=== PATIENT | female | born 1970 | race Caucasian/White ===

== ENCOUNTER 2017-02-28 02:48 | Observation (INO) ==
--- NOTE | 2017-02-28 03:08 | Emergency Department Note ---
START Narrative - START START: I examined this patient and my medical decision-making was reviewed with the emergency medicine resident. I agree with the documented findings, disposition and treatment plan as described except to the extent set forth below. Patient seen with emergency medicine resident Dr. Dale Turenr, Please see a copy of his note for details of the H&P, ED evaluation, management and disposition. I have independently evaluated the patient and confirmed appropriate portions of the history and physical exam. Briefly: A 46-year-old female in from sleep with right-sided chest pain accelerated premature coronary artery disease in her first-degree relatives. HEART score is 4. This is both wrists, patient will get chest x-ray aspirin nitroglycerin troponin screening labs and likely admission. Disposition pending
--- NOTE | 2017-02-28 03:14 | Emergency Department Note ---
Disposition Clinical Impression: Hypokalemia Chest pain Qualifiers: Chest pain type: unspecified Qualified Code(s): R07.9 - Chest pain, unspecified Disposition: Admitted As Inpatient Condition: Undetermined Referrals: Constantino Park DO [Primary Care Provider] - Forms: ED Satisfaction Letter Time of Disposition: 03:59 Chest Pain HPI - General Chief Complaint: ED Chest Pain Stated Complaint: chest pain Time Seen by Provider: 02/28/17 02:53 Source: patient Mode of arrival: ambulatory Limitations: no limitations Vital Signs Reviewed: Yes Nursing Notes Reviewed: Yes - History of Present Illness HPI Narrative: 46-year-old female with history of hypertension, arrives [facility] emergency department complaining of right-sided chest pain that woke her up from sleep just prior to arrival. The patient states it was bilaterally and is now primarily in the right side of her chest. The patient appears very uncomfortable when the room. She is hypertensive at this time. She denies any previous cardiac history or workup, denies hyperlipidemia or diabetes. She is a nonsmoker but has a family history of ID. The patient denies any history of DVT or PE, unilateral leg swelling, recent immobilizations, recent surgeries, history of cancer. The patient denies any previous history of stress test or cardiac catheter. She denies any other time. 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 Onset: during rest Pain Location: substernal, right chest Severity: moderate, severe Severity scale (1-10): 8 Quality: tightness, heaviness Pain Radiation: RUE Improves with: nothing Worsens with: nothing Treatments prior to arrival chest pain: aspirin (324 mg) - Related Data On Oral Contraceptives: No Home Medications Medication Instructions Recorded Confirmed ALPRAZolam [Xanax 0.25 MG Tablet] 0.25 mg PO BID PRN 11/15/15 11/15/15 BuPROPion SR (12 HR) [Wellbutrin 150 mg PO DAILY 11/15/15 11/15/15 SR] Escitalopram [Lexapro] 30 mg PO DAILY 11/15/15 11/15/15 HydrOXYzine Pamoate [Vistaril] 50 mg PO HS 11/15/15 11/15/15 Mirtazapine [Remeron] 45 mg PO HS 11/15/15 11/15/15 Naproxen [Naprosyn] 500 mg PO BID 11/15/15 11/15/15 Omeprazole [PriLOSEC] 40 mg PO DAILY 11/15/15 11/15/15 SUMAtriptan Succinate [Imitrex] 100 mg PO BID PRN 11/15/15 11/15/15 Previous Rx's Medication Instructions Recorded Acetaminophen w/Cod 300-30 mg 1 each PO Q6HR PRN #10 tablet 06/12/16 [Tylenol w/Codeine #3] Ibuprofen [Motrin] 800 mg PO Q8HR PRN #20 tablet 06/12/16 Allergies Allergy/AdvReac Type Severity Reaction Status Date / Time promethazine [From Phenergan] Allergy Agitated Verified 11/25/14 10:36 All systems ED: reviewed and negative except as stated. Constitutional: Denies: fever, chills, weakness Cardiovascular: Reports: chest pain, dyspnea on exertion. Denies: edema, syncope Respiratory: Reports: dyspnea. 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 - Social History Smoking Status: Never smoker Alcohol use: Reports: none Drug use: Reports: none Physical Exam - General Limitations: no limitations General appearance: alert, in no apparent distress - Head Head exam: atraumatic, normocephalic, normal inspection - Eye Eye exam: Present: normal appearance, PERRL, EOMI - ENT ENT exam: normal exam, normal oropharynx, mucous membranes moist - Neck Neck exam: Present: normal inspection, full ROM, trachea midline - Chest Chest inspection: Present: normal inspection, symmetric chest wall rise - Respiratory Respiratory exam: Present: normal lung sounds bilaterally - Cardiovascular Cardiovascular exam: Present: regular rate, normal rhythm, normal heart sounds - Abdominal Exam Abdominal exam: Present: soft, Non-Tender. Absent: tenderness, distention, guarding, rebound, rigidity - Extremities Exam Extremities exam: Present: normal inspection, full ROM. Absent: tenderness, pedal edema - Neurological Exam Neurological exam: Present: alert, oriented X3 Course - Reevaluation(s) Reevaluation #1: Patient's chest pain went from an 8 to a 4 after one nitroglycerin. Time: 03:27 Vital Signs Temperature 97.5 F L 02/28/17 02:48 Pulse Rate 99 02/28/17 02:48 Respiratory Rate 24 02/28/17 02:48 Blood Pressure 181/102 02/28/17 02:48 O2 Sat by Pulse Oximetry 97 02/28/17 02:48 Temperature 97.5 F L 02/28/17 02:48 Pulse Rate 84 02/28/17 03:36 Respiratory Rate 16 02/28/17 03:36 Blood Pressure 147/86 02/28/17 03:36 O2 Sat by Pulse Oximetry 96 02/28/17 03:36 Oxygen Delivery Oxygen Delivery Room Air Chest Pain - MDM Narrative Medical decision making narrative: Patient's workup here in the emergency department temperature to acute process. I am very concerned about the patient's chest pain is I am concerned about unstable angina. The patient's troponin is negative at this time. The patient' s chest pain started at roughly 45 minutes prior to arrival so I feel as though the troponin will not return positive. We will admit the patient for further workup at this time. The patient had complete resolution of the chest pain with 2 nitroglycerin. I am concerned about this patient. She did receive 324 aspirin prior to arrival to the emergency Department. Given the patient's symptoms and findings, we will admit the patient to hospitals for ACS rule out. Accepted by Dr. Real. - Lab Data Lab results reviewed: Yes I reviewed the patient's lab results. Result diagrams: 02/28/17 03:20 02/28/17 03:20 Lab Results 02/28/17 02/28/17 02/28/17 Range/Units 03:20 03:20 03:20 WBC 6.9 (4.3-11.1) K/mcL RBC 4.95 (3.82-4.97) M/mcL Hgb 10.5 L (11.5-15.4) g/dL Hct 35.3 (35.3-44.9) % MCV 71.3 L (83.0-100.0) fL MCH 21.2 L (28.0-33.3) pg MCHC 29.7 L (31.6-35.5) g/dL RDW 21.4 H (11.5-14.5) % Plt Count 307 (140-400) K/mcL MPV 9.6 (9.4-12.4) fL Immature Gran % 0.3 (0-4) % Seg Neutrophils % 60.8 % Lymphocytes % 28.1 % Monocytes % 8.0 % Eosinophils % 2.5 % Basophils % 0.3 % Neutrophils # 4.2 (1.6-8.9) K/mcL Lymphocytes # 1.9 (0.6-4.6) K/mcL Monocytes # 0.6 (0.0-1.3) K/mcL Eosinophils # 0.2 (0.0-0.6) K/mcL Basophils # 0.0 (0.0-0.2) K/mcL Sodium 141 (136-145) mEq/L Potassium 3.1 L (3.5-4.5) mEq/L Chloride 107 (98-109) mEq/L Carbon Dioxide 27 (19-29) mEq/L BUN 11 (7-20) mg/dL Creatinine 0.78 (0.57-1.11) mg/dL Est GFR ( Amer) > 60 (> 60) Est GFR (Non-Af Amer) > 60 (> 60) BUN/Creatinine Ratio 14 (6-26) Glucose 109 H (70-99) mg/dL Calculated Osmolality 292 (280-300) Calcium 8.8 (8.6-10.8) mg/dL Troponin I 0.00 (0-0.03) ng/mL - Radiology Data Radiology results reviewed: Yes I reviewed the patient's radiology results. - EKG Data EKG attestation: Yes I reviewed and interpreted this EKG. EKG results narrative: Heart rate 86 bpm. WY interval 148 ms. QTC 420 ms. Normal axis. No ST elevation but mild ST depression noted in lateral leads, V4, V5, V6 which is new from EKG performed on 11/25/2014. No other acute changes noted.
[2017-02-28] MEDS: Nitroglycerin 0.4 MG TAB.SUBL SL PRN ×2 (03:18→03:28)
[2017-02-28 03:23] LABS: Basophils % 0.3 %; Eosinophils # 0.2 K/mcL (0.0-0.6); Eosinophils % 2.5 %; Hematocrit 35.3 % (35.3-44.9); Hemoglobin 10.5 g/dL (11.5-15.4); Immature Granulocytes % 0.3 % (0-4); Lymphocytes # 1.9 K/mcL (0.6-4.6); Lymphocytes % 28.1 %; Mean Corpuscular HGB Conc 29.7 g/dL (31.6-35.5); Mean Corpuscular Hemoglobin 21.2 pg (28.0-33.3); Mean Corpuscular Volume 71.3 fL (83.0-100.0); Mean Platelet Volume 9.6 fL (9.4-12.4); Monocytes # 0.6 K/mcL (0.0-1.3); Neutrophils # 4.2 K/mcL (1.6-8.9); Platelet Count 307 K/mcL (140-400); Red Blood Count 4.95 M/mcL (3.82-4.97); Red Cell Distribution Width 21.4 % (11.5-14.5); Segmented Neutrophils % 60.8 %
[2017-02-28 03:36] LABS: BUN/Creatinine Ratio 14 (6-26); Blood Urea Nitrogen 11 mg/dL (7-20); Calcium 8.8 mg/dL (8.6-10.8); Carbon Dioxide 27 mEq/L (19-29); Chloride 107 mEq/L (98-109); Glucose 109 mg/dL (70-99); Osmolality,Calculated 292 (280-300); Potassium 3.1 mEq/L (3.5-4.5); Sodium 141 mEq/L (136-145); eGFR For African Americans > 60 (> 60); eGFR For Non-African Americans > 60 (> 60)
[2017-02-28] MEDS ORDERED: Naloxone 0.4 MG/ML INJ IVP PRN (07:13)
[2017-02-28] MEDS ORDERED: ALPRAZolam 0.5 MG TABLET PO PRN (08:23)
--- NOTE | 2017-02-28 08:28 | Internal Med History&Physical ---
Date of Encounter: 02/28/17 Time of Encounter: 08:30 Assessment and Plan (1) Chest pain Current visit: Yes Status: Acute Atypical, but did resolve with nitroglycerin. Heart score of 3 - Nuc med stress test pending, if negative will discharge home - Troponin undetectable x2 - Continue ASA - Keep patient chest pain free with SL nitro PRN Qualifiers: Chest pain type: other chest pain Qualified Code(s): R07.89 - Other chest pain; R07.8 - Other chest pain (2) Hypokalemia Current visit: Yes Status: Acute Received KCl in ED. Mag checked and is 2.0. - Recheck K in AM Internal Medicine - H&P: HPI Chief complaint: Chest pain Admitted From: Emergency Dept Plans for Post Hospital Care: Home History of present illness: Ms. Salvador is a 46 year old female with history of obesity and HTN who presented to the ED with complaints of chest pain this morning. She states that she has had bronchitis the past two weeks associated with frequent coughing, but this morning was awoke from sleep around 0200 with sharp substernal chest pain which radiated initially to both arms and then persisted at the right anterior chest. The pain was 8/10 and she could not identify any exacerbating or relieving factors. She was not coughing when the pain started, and coughing did not make the pain worse. On arrival to the ED she continued to have pain and was given 2 SL nitro, which completely relieved the pain and it has not returned. She took three 81mg ASA at home prior to driving to the ED. She denies history of cardiac disease. She has never had chest pain like this in the past. She admits to severe stressors at home. Her notes that she is not a complainer and has a high pain tolerance. Past Med Surg Social Fam HX - Past Medical History Medical history: arthritis, GERD, hypertension Psychiatric history: anxiety, depression - Past Surgical History Surgical History: , cholecystectomy, other - Social History Smoking Status: Never smoker Smokeless Tobacco Status: No Alcohol use: none Drug use: none - Family History Mother Living Status: Still Living Hx Family Respiratory Disorders: Yes (COPD) Father Living Status: Still Living Hx Family Cardiac Disorders: Yes Internal Medicine - H&P: Meds Escitalopram [Lexapro] 30 mg PO DAILY 08/03/16 [History] Mirtazapine [Remeron] 45 mg PO HS 11/15/15 [History] SUMAtriptan Succinate [Imitrex] 100 mg PO BID PRN 11/15/15 [History] ALPRAZolam [Xanax 0.5 MG Tablet] 0.5 mg PO BID PRN 02/28/17 [History] Zolpidem [Ambien] 10 mg PO HS 02/28/17 [History] 3 Allergy/AdvReac Type Severity Reaction Status Date / Time promethazine [From Phenergan] AdvReac Agitated Verified 02/28/17 07:50 All Systems PM: A 10-system review of systems was performed and is negative for pertinent findings except as documented above in the HPI. - Constitutional Vitals: Temp Pulse Resp BP Pulse Ox 98 F 65 16 156/86 97 02/28/17 07:12 02/28/17 07:12 02/28/17 07:12 02/28/17 07:12 02/28/17 07:12 General appearance: Present: A&O X 3 - Head Head exam: Present: atraumatic - Eye Eye exam: Present: EOMI, sclera anicteric - ENT ENT exam: Present: mucous membranes moist. Absent: mucous membranes dry - Neck Neck exam general surgery: Present: supple - Respiratory Respiratory exam: Present: CTAB - Cardiovascular Cardiovascular exam: Present: RRR. Absent: diastolic murmur, gallop, rubs, systolic murmur - GI/Abdominal GI/Abdominal exam: Present: normal bowel sounds, soft. Absent: distended, tenderness - Extremities Exam Extremities exam: Absent: pedal edema - Neurological Exam Neurological exam: Present: no focal deficits - Skin Skin exam: Absent: rash Internal Med - H&P Results - Labs CBC & Chem 7: 02/28/17 03:20 02/28/17 03:20
[2017-02-28 08:31] LABS: Chol/HDL Ratio 4.7 (0-4.9)
[2017-02-28] MEDS: SUMAtriptan succinate 50 MG TABLET PO PRN (08:53)
[2017-02-28] MEDS ORDERED: Regadenoson 0.4 MG/5 ML SYRINGE IVP ONE (10:44)
--- NOTE | 2017-02-28 18:28 | Electrocardiograph Report ---
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
[2017-02-28] MEDS ORDERED: Mirtazapine 15 MG TABLET PO SCH (21:00)
[2017-03-01 09:50] LABS: Basophils % 0.2 %; Eosinophils # 0.1 K/mcL (0.0-0.6); Eosinophils % 2.2 %; Hematocrit 35.2 % (35.3-44.9); Hemoglobin 10.4 g/dL (11.5-15.4); Immature Granulocytes % 0.4 % (0-4); Lymphocytes # 1.1 K/mcL (0.6-4.6); Lymphocytes % 20.7 %; Mean Corpuscular HGB Conc 29.5 g/dL (31.6-35.5); Mean Corpuscular Volume 71.1 fL (83.0-100.0); Mean Platelet Volume 9.3 fL (9.4-12.4); Monocytes # 0.3 K/mcL (0.0-1.3); Monocytes % 6.2 %; Neutrophils # 3.8 K/mcL (1.6-8.9); Platelet Count 285 K/mcL (140-400); Red Blood Count 4.95 M/mcL (3.82-4.97); Red Cell Distribution Width 21.2 % (11.5-14.5); Segmented Neutrophils % 70.3 %
[2017-03-01] MEDS: SUMAtriptan succinate 50 MG TABLET PO PRN (09:59)
[2017-03-01 10:00] LABS: BUN/Creatinine Ratio 13 (6-26); Blood Urea Nitrogen 10 mg/dL (7-20); Calcium 8.6 mg/dL (8.6-10.8); Carbon Dioxide 27 mEq/L (19-29); Chloride 108 mEq/L (98-109); Glucose 113 mg/dL (70-99); Osmolality,Calculated 294 (280-300); Phosphorous 2.9 mg/dL (2.3-4.7); Potassium 2.9 mEq/L (3.5-4.5); Sodium 142 mEq/L (136-145); eGFR For African Americans > 60 (> 60); eGFR For Non-African Americans > 60 (> 60)
--- NOTE | 2017-03-01 13:34 | Discharge Summary ---
Date of Encounter: 03/01/17 Time of Encounter: 09:45 - Discharge Diagnosis (1) Chest pain Priority: Primary Status: Resolved Qualifiers: Chest pain type: other chest pain Qualified Code(s): R07.89 - Other chest pain; R07.8 - Other chest pain (2) Hypokalemia Priority: Secondary Status: Acute (3) Morbid obesity with BMI of 40.0-44.9, adult Priority: Secondary Status: Chronic - Discharge Medications Prescriptions: Aspirin Enteric Coated [Aspirin EC] 81 mg PO DAILY #30 tablet. Home Medications: Escitalopram [Lexapro] 30 mg PO DAILY 11/15/15 [History] Mirtazapine [Remeron] 45 mg PO HS 11/15/15 [History] SUMAtriptan Succinate [Imitrex] 100 mg PO BID PRN 11/15/15 [History] ALPRAZolam [Xanax 0.5 MG Tablet] 0.5 mg PO BID PRN 02/28/17 [History] Zolpidem [Ambien] 10 mg PO HS 02/28/17 [History] Aspirin Enteric Coated [Aspirin EC] 81 mg PO DAILY #30 tablet. 03/01/17 [Rx] Allergies/Adverse Reactions: 3 Allergy/AdvReac Type Severity Reaction Status Date / Time promethazine [From Phenergan] AdvReac Agitated Verified 02/28/17 07:50 Procedures/tests Complete & Pending: Procedures Performed prior 72 hours Category Date Time Status NM puvri perf SPECT multi [NM] Routine Exams 02/28/17 08:22 Taken ECG 12 lead ECG [ECG] Routine Y 02/28/17 10:02 Ordered SP pharm nuclear stress Routine Y 02/28/17 08:22 Completed Date of admission: 02/28/17 04:41 Primary care physician: Rafita Mancera Discharging clinician: Stephanie Nielson Anticipated date of discharge: 03/01/17 - Patient Status Disposition: Home, Self-Care Condition: Good Functional capacity at discharge: independent ambulation Overall status at discharge: patient is back to baseline - Discharge Instructions Follow Up With: Constantino Park DO [Primary Care Provider] - (Appointment has been webrequested. Our offices will call you with an appointment time and date.) Additional Instructions: Please follow up with your primary care physician within five days after your discharge from the hospital. Please closely monitor your blood pressure at home and keep a daily log of your blood pressure readings. You were noted to have elevated BP during the course of this hospitalization due to which Hydrochlorothiazide 12.5mg once a day has been added to your home medications. Please take this medication as prescribed. Hold this medication if your systolic blood pressure is less than 100. Aspirin 81mg once a day has been added to your home medications Resume all other medications as prescribed by your primary care physician. - Diet and Activity Activity: resume usual activities as tolerated Diet: low fat, low cholesterol, low salt diet Hospital course: Ms. Salvador is a 46 year old female with PMH of hypertension, morbid obesity who presented to the ER for chest pain. She underwent nuclear stress test which was negative for any ischemic perfusion defect. Her serial TNI remained negative. At this time she is hemodynamically stable and reports of complete resolution of her chest pain. She will be discharged to home with follow up with her pcp. Pt demonstrates understanding of her diagnosis and agree with the discharge care and plan. - Time Spent with Patient Total time spent providing and/or coordinating discharge services: Less than 30 minutes - Constitutional Vitals: Temp Pulse Resp BP Pulse Ox 97.9 F 67 15 165/96 95 03/01/17 11:42 03/01/17 11:42 03/01/17 11:42 03/01/17 11:42 03/01/17 11:42 General appearance: Present: A&O X 3, morbidly obese, no acute distress - Head Head exam: Present: atraumatic, normocephalic - Eye Eye exam: Present: conjuntiva pink, sclera anicteric - Respiratory Respiratory exam: Present: CTAB. Absent: accessory muscle use, rales, rhonchi, wheezes - Cardiovascular Cardiovascular exam: Present: RRR, +S1, +S2. Absent: diastolic murmur, gallop, rubs, systolic murmur - GI/Abdominal GI/Abdominal exam: Present: normal bowel sounds, soft, no peritoneal signs. Absent: distended, tenderness - Extremities Exam Extremities exam: Present: warm, radial pulses palpable and symmetrical. Absent : calf tenderness - Neurological Exam Neurological exam: Present: alert, oriented X3
[2017-03-01] MEDS ORDERED: hydroCHLOROthiazide 25 MG TABLET PO SCH (13:45)
[2017-03-01 16:19] VITALS: BP 155/68
== END 2017-03-01 17:15 | disposition home or self-care (01) ==
LOC: 3BNU 02:48 → EMEROO 02:48 → SUATTDRO 04:41 → 3BNU 05:04
PROVIDERS: ADMIT Internal Medicine; ATTEND Internal Medicine

== ENCOUNTER 2017-11-25 13:08 | Observation (INO) ==
[2017-11-25] MEDS ORDERED: Aspirin 81 MG TAB.CHEW PO ONE (13:28)
[2017-11-25] MEDS ORDERED: 0.9 % Sodium Chloride 1,000 ML IVC ONE (13:30)
--- NOTE | 2017-11-25 13:36 | Emergency Department Note ---
Disposition Clinical Impression: Hypokalemia Chest pain Qualifiers: Chest pain type: unspecified Qualified Code(s): R07.9 - Chest pain, unspecified Disposition: Admitted As Inpatient Condition: Good Forms: ED Satisfaction Letter General Adult HPI - General Chief complaint: ED Chest Pain Stated complaint: chest pain Time Seen by Provider: 11/25/17 13:11 Source: patient, EMS Limitations: no limitations Nursing Notes Reviewed: Yes Vital Signs Reviewed: Yes - History of Present Illness HPI Narrative: Patient presenting to the emergency department complaining of chest pain. She came in by EMS. States that she was moving boxes today inside and outside at the [employer] when she started having left-sided chest pain that radiated to her shoulder. She reports that she has had this pain previously approximately 6 months ago however she had a negative workup, but was found to be hypokalemic. She was admitted to the hospital at that time. She reports taking potassium supplements " occasionally" now. Patient states that the pain was a significant whenever started however since she has been resting it has decreased. Did have associated shortness of breath as well as diaphoresis. Also reporting a cough for the past 2 weeks. No fevers the cough is nonproductive. She does have a history of hypertension is unknown if she has high cholesterol she has never had this checked before. She was a previous smoker. Does have a cardiac history in her family. She also reports a history of possible blood clot in her lung. She states that she was treated for this as well as a pneumonia at the same time and they were unsure as what she had. Onset was approximately an hour ago. Does radiate to the shoulder. Associated symptoms are short of breath diaphoresis and nausea. States that the nausea has subsided at this time. She is still mildly short of breath she reports. Pain Scale: 4 - Related Data Home Medications Medication Instructions Recorded Confirmed Mirtazapine [Remeron] 45 mg PO HS 11/15/15 02/28/17 ALPRAZolam [Xanax 0.5 MG Tablet] 0.5 mg PO BID PRN 02/28/17 02/28/17 Zolpidem [Ambien] 10 mg PO HS 02/28/17 02/28/17 Previous Rx's Medication Instructions Recorded Aspirin Enteric Coated [Aspirin EC] 81 mg PO DAILY #30 tablet. 03/01/17 Potassium Chloride 40 meq PO DAILY 4 Days #8 04/13/18 tab.er.prt Allergies Allergy/AdvReac Type Severity Reaction Status Date / Time promethazine [From Phenergan] AdvReac Agitated Verified 07/25/17 09:17 All systems ED: reviewed and negative except as stated. Constitutional: Denies: fever, chills Cardiovascular: Reports: chest pain. Denies: palpitations, dyspnea on exertion , syncope Respiratory: Reports: cough (2 weeks.), dyspnea (Associated with the chest pain) . Denies: wheezes, sputum production Gastrointestinal: Reports: nausea (Associated with the chest pain). Denies: abdominal pain, vomiting, diarrhea Genitourinary: Denies: urgency, dysuria, frequency, hematuria Musculoskeletal: Denies: back pain, neck pain Integumentary: Denies: rash Neurological: Denies: headache, weakness Past Medical History - Past Medical History Attestation: Yes The following information was validated with the patient. 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 Absent : tenderness - Respiratory Respiratory exam: Present: normal lung sounds bilaterally. Absent: respiratory distress, accessory muscle use - Cardiovascular Cardiovascular exam: Present: regular rate, normal rhythm, normal heart sounds - Abdominal Exam Abdominal exam: Present: soft, Non-Tender. Absent: tenderness, distention, guarding, rebound, rigidity, organomegaly - Extremities Exam Extremities exam: Present: normal inspection, full ROM, normal capillary refill. Absent: tenderness, pedal edema - Back Exam Back exam: Present: normal inspection, full ROM. Absent: tenderness - Neurological Exam Neurological exam: Present: alert, oriented X3 - Psychiatric Psychiatric exam: Present: normal affect, normal mood - Skin Skin exam: Present: warm, dry, intact, normal color. Absent: rash, cyanosis Course Course Narrative: Patient is resting comfortably in bed. Does not appear to be any distress. Lung sounds are clear heart tones are normal abdomen is soft nontender. She has no edema to her 70s. No calf swelling or tenderness to palpation. Patient is not tachycardic. EKG shows no signs of acute ischemia. We will get a cardiac workup inclusive of the d-dimer and reassess. She states she did not take any of her aspirin today. We will provide her with a liter of fluid as she has been outside and sweating most of the day and aspirin at this time. She states she does not need pain medication. She also states that her nausea has almost completely subsided. - Reevaluation(s) Reevaluation #1: Patient is potassium is low. She does take supplements however it is still 2.5. We will admit to the hospital for cardiac rule out and hypokalemia. Time: 14:43 - Consultations Consultation #1: Dr Cool accepted Pt in stable condition Time: 14:51 Vital Signs Temperature 98.2 F 11/25/17 13:10 Pulse Rate 88 11/25/17 13:10 Respiratory Rate 14 11/25/17 13:10 Blood Pressure 123/76 11/25/17 13:10 O2 Sat by Pulse Oximetry 94 11/25/17 13:10 Temperature 98.2 F 11/25/17 13:10 Pulse Rate 84 11/25/17 14:32 Respiratory Rate 16 11/25/17 14:32 Blood Pressure 121/71 11/25/17 14:32 O2 Sat by Pulse Oximetry 100 11/25/17 14:32 Oxygen Delivery Oxygen Delivery Room Air Medical Decision Making - Medical Records Medical records reviewed: Yes I reviewed the patient's medical records. - Lab Data Lab results reviewed: Yes I reviewed the patient's lab results. Result diagrams: 11/25/17 13:41 11/25/17 13:41 Lab Results 11/25/17 11/25/17 11/25/17 Range/Units 13:41 13:41 13:41 WBC 8.7 (4.3-11.1) K/mcL RBC 5.06 H (3.82-4.97) M/mcL Hgb 11.7 (11.5-15.4) g/dL Hct 37.5 (35.3-44.9) % MCV 74.1 L (83.0-100.0) fL MCH 23.1 L (28.0-33.3) pg MCHC 31.2 L (31.6-35.5) g/dL RDW 18.8 H (11.5-14.5) % Plt Count 312 (140-400) K/mcL MPV 9.6 (9.4-12.4) fL Immature Gran % 0.7 (0-4) % Seg Neutrophils % 77.8 % Lymphocytes % 14.1 % Monocytes % 5.6 % Eosinophils % 1.5 % Basophils % 0.3 % Neutrophils # 6.8 (1.6-8.9) K/mcL Lymphocytes # 1.2 (0.6-4.6) K/mcL Monocytes # 0.5 (0.0-1.3) K/mcL Eosinophils # 0.1 (0.0-0.6) K/mcL Basophils # 0.0 (0.0-0.2) K/mcL PT 11.8 (9.4-12.1) Seconds INR 1.0 APTT 25.6 L (26.0-36.0) Seconds D-Dimer 479 (0-500) ng/mLFEU Sodium (136-145) mEq/L Potassium (3.5-5.1) mEq/L Chloride (98-107) mEq/L Carbon Dioxide (23-29) mEq/L BUN (6-20) mg/dL Creatinine (0.60-1.20) mg/dL Est GFR ( Amer) (> 60) Est GFR (Non-Af Amer) (> 60) BUN/Creatinine Ratio (6-26) Glucose (70-105) mg/dL Calculated Osmolality (280-300) Calcium (8.6-10.3) mg/dL Troponin I (< 0.04) ng/mL B-Natriuretic Peptide 10 (Less than 100) pg/mL 11/25/17 Range/Units 13:41 WBC (4.3-11.1) K/mcL RBC (3.82-4.97) M/mcL Hgb (11.5-15.4) g/dL Hct (35.3-44.9) % MCV (83.0-100.0) fL MCH (28.0-33.3) pg MCHC (31.6-35.5) g/dL RDW (11.5-14.5) % Plt Count (140-400) K/mcL MPV (9.4-12.4) fL Immature Gran % (0-4) % Seg Neutrophils % % Lymphocytes % % Monocytes % % Eosinophils % % Basophils % % Neutrophils # (1.6-8.9) K/mcL Lymphocytes # (0.6-4.6) K/mcL Monocytes # (0.0-1.3) K/mcL Eosinophils # (0.0-0.6) K/mcL Basophils # (0.0-0.2) K/mcL PT (9.4-12.1) Seconds INR APTT (26.0-36.0) Seconds D-Dimer (0-500) ng/mLFEU Sodium 136 (136-145) mEq/L Potassium 2.5 L* (3.5-5.1) mEq/L Chloride 97 L (98-107) mEq/L Carbon Dioxide 28 (23-29) mEq/L BUN 15 (6-20) mg/dL Creatinine 0.85 (0.60-1.20) mg/dL Est GFR ( Amer) > 60 (> 60) Est GFR (Non-Af Amer) > 60 (> 60) BUN/Creatinine Ratio 18 (6-26) Glucose 141 H (70-105) mg/dL Calculated Osmolality 285 (280-300) Calcium 9.5 (8.6-10.3) mg/dL Troponin I < 0.03 (< 0.04) ng/mL B-Natriuretic Peptide (Less than 100) pg/mL - Radiology Data Radiology results reviewed: Yes I reviewed the patient's radiology results. - EKG Data EKG #1 EKG attestation: Yes I reviewed and interpreted this EKG. EKG results narrative: Normal sinus rhythm at a rate of 87. CA interval appears to be normal. No signs of acute ischemia. No previous EKG to. Heart Score - Score History: Moderately Suspicious EKG: Non Specific repolarisation Disturbance Age: 45-65 Risk Factors: 1-2 risk factors Troponin: Less than normal limit HEART Score Total: 4
[2017-11-25 13:55] LABS: Basophils % 0.3 %; Eosinophils # 0.1 K/mcL (0.0-0.6); Eosinophils % 1.5 %; Hematocrit 37.5 % (35.3-44.9); Hemoglobin 11.7 g/dL (11.5-15.4); Immature Granulocytes % 0.7 % (0-4); Lymphocytes # 1.2 K/mcL (0.6-4.6); Lymphocytes % 14.1 %; Mean Corpuscular HGB Conc 31.2 g/dL (31.6-35.5); Mean Corpuscular Hemoglobin 23.1 pg (28.0-33.3); Mean Corpuscular Volume 74.1 fL (83.0-100.0); Mean Platelet Volume 9.6 fL (9.4-12.4); Monocytes # 0.5 K/mcL (0.0-1.3); Monocytes % 5.6 %; Neutrophils # 6.8 K/mcL (1.6-8.9); Platelet Count 312 K/mcL (140-400); Red Blood Count 5.06 M/mcL (3.82-4.97); Red Cell Distribution Width 18.8 % (11.5-14.5); Segmented Neutrophils % 77.8 %
[2017-11-25 14:01] LABS: Prothrombin Time 11.8 Seconds (9.4-12.1)
[2017-11-25 14:04] LABS: Activated Partial Thrombo Time 25.6 Seconds (26.0-36.0)
[2017-11-25 14:11] LABS: Troponin I < 0.03 ng/mL (< 0.04)
[2017-11-25 14:20] LABS: BUN/Creatinine Ratio 18 (6-26); Blood Urea Nitrogen 15 mg/dL (6-20); Calcium 9.5 mg/dL (8.6-10.3); Carbon Dioxide 28 mEq/L (23-29); Chloride 97 mEq/L (98-107); Glucose 141 mg/dL (70-105); Osmolality,Calculated 285 (280-300); Potassium 2.5 mEq/L (3.5-5.1); Sodium 136 mEq/L (136-145); eGFR For Non-African Americans > 60 (> 60)
[2017-11-25] MEDS ORDERED: Potassium Chloride Elixir 20 MEQ/15 ML UDC PO ONE (14:37)
[2017-11-25] MEDS ORDERED: Ondansetron 4 MG/2 ML VIAL IVP ONE (14:47)
[2017-11-25 14:58] LABS: Magnesium 2.2 mg/dL (1.6-2.6)
[2017-11-25] MEDS ORDERED: Naloxone 0.4 MG/ML INJ IVP PRN (15:26)
[2017-11-25] MEDS ORDERED: ALPRAZolam 0.5 MG TABLET PO PRN (15:29)
--- NOTE | 2017-11-25 15:31 | Emergency Department Note ---
Disposition Clinical Impression: Hypokalemia Chest pain Qualifiers: Chest pain type: unspecified Qualified Code(s): R07.9 - Chest pain, unspecified Disposition: Admitted As Inpatient Condition: Good General Adult HPI - General Chief complaint: ED Chest Pain Stated complaint: chest pain Time Seen by Provider: 11/25/17 13:11 Source: patient, EMS Limitations: no limitations Nursing Notes Reviewed: Yes Vital Signs Reviewed: Yes - History of Present Illness Pain Scale: 4 - Related Data Home Medications Medication Instructions Recorded Confirmed ALPRAZolam [Xanax 0.5 MG Tablet] 0.5 mg PO BID PRN 02/28/17 11/25/17 Zolpidem [Ambien] 10 mg PO HS 02/28/17 11/25/17 Mirtazapine [Remeron] 45 mg PO HS 11/25/17 11/25/17 Olmesartan/Hydrochlorothiazide 1 tab PO DAILY 11/25/17 11/25/17 [Olmesartan-Hctz 20-12.5 mg Tab] Oxybutynin Chloride [Ditropan Xl] 10 mg PO DAILY 11/25/17 11/25/17 Sertraline [Zoloft] 200 mg PO DAILY 11/25/17 11/25/17 Previous Rx's Medication Instructions Recorded Aspirin Enteric Coated [Aspirin EC] 81 mg PO DAILY #30 tablet.dr 03/01/17 Potassium Chloride 40 meq PO DAILY 4 Days #8 07/25/17 tab.er.prt Allergies Allergy/AdvReac Type Severity Reaction Status Date / Time promethazine [From Phenergan] AdvReac Agitated Verified 11/25/17 14:53 Constitutional: Denies: fever, chills Cardiovascular: Reports: chest pain. Denies: palpitations, dyspnea on exertion , syncope Respiratory: Reports: cough (2 weeks.), dyspnea (Associated with the chest pain) . Denies: wheezes, sputum production Gastrointestinal: Reports: nausea (Associated with the chest pain). 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 - Social History Smoking Status: Former smoker Smokeless Tobacco Status: No Alcohol use: Reports: none Drug use: Reports: none Physical Exam - General Limitations: no limitations General appearance: alert, in no apparent distress Course Vital Signs Temperature 98.2 F 11/25/17 13:10 Pulse Rate 88 11/25/17 13:10 Respiratory Rate 14 11/25/17 13:10 Blood Pressure 123/76 11/25/17 13:10 O2 Sat by Pulse Oximetry 94 11/25/17 13:10 Temperature 98.2 F 11/25/17 13:10 Pulse Rate 84 11/25/17 14:32 Respiratory Rate 16 11/25/17 14:32 Blood Pressure 121/71 11/25/17 14:32 O2 Sat by Pulse Oximetry 100 11/25/17 14:32 Oxygen Delivery Oxygen Delivery Room Air Medical Decision Making - Lab Data Result diagrams: 11/25/17 13:41 11/25/17 13:41 Lab Results 11/25/17 11/25/17 11/25/17 Range/Units 13:41 13:41 13:41 WBC 8.7 (4.3-11.1) K/mcL RBC 5.06 H (3.82-4.97) M/mcL Hgb 11.7 (11.5-15.4) g/dL Hct 37.5 (35.3-44.9) % MCV 74.1 L (83.0-100.0) fL MCH 23.1 L (28.0-33.3) pg MCHC 31.2 L (31.6-35.5) g/dL RDW 18.8 H (11.5-14.5) % Plt Count 312 (140-400) K/mcL MPV 9.6 (9.4-12.4) fL Immature Gran % 0.7 (0-4) % Seg Neutrophils % 77.8 % Lymphocytes % 14.1 % Monocytes % 5.6 % Eosinophils % 1.5 % Basophils % 0.3 % Neutrophils # 6.8 (1.6-8.9) K/mcL Lymphocytes # 1.2 (0.6-4.6) K/mcL Monocytes # 0.5 (0.0-1.3) K/mcL Eosinophils # 0.1 (0.0-0.6) K/mcL Basophils # 0.0 (0.0-0.2) K/mcL PT 11.8 (9.4-12.1) Seconds INR 1.0 APTT 25.6 L (26.0-36.0) Seconds D-Dimer 479 (0-500) ng/mLFEU Sodium (136-145) mEq/L Potassium (3.5-5.1) mEq/L Chloride (98-107) mEq/L Carbon Dioxide (23-29) mEq/L BUN (6-20) mg/dL Creatinine (0.60-1.20) mg/dL Est GFR ( Amer) (> 60) Est GFR (Non-Af Amer) (> 60) BUN/Creatinine Ratio (6-26) Glucose (70-105) mg/dL Calculated Osmolality (280-300) Calcium (8.6-10.3) mg/dL Magnesium (1.6-2.6) mg/dL Troponin I (< 0.04) ng/mL B-Natriuretic Peptide 10 (Less than 100) pg/mL 11/25/17 Range/Units 13:41 WBC (4.3-11.1) K/mcL RBC (3.82-4.97) M/mcL Hgb (11.5-15.4) g/dL Hct (35.3-44.9) % MCV (83.0-100.0) fL MCH (28.0-33.3) pg MCHC (31.6-35.5) g/dL RDW (11.5-14.5) % Plt Count (140-400) K/mcL MPV (9.4-12.4) fL Immature Gran % (0-4) % Seg Neutrophils % % Lymphocytes % % Monocytes % % Eosinophils % % Basophils % % Neutrophils # (1.6-8.9) K/mcL Lymphocytes # (0.6-4.6) K/mcL Monocytes # (0.0-1.3) K/mcL Eosinophils # (0.0-0.6) K/mcL Basophils # (0.0-0.2) K/mcL PT (9.4-12.1) Seconds INR APTT (26.0-36.0) Seconds D-Dimer (0-500) ng/mLFEU Sodium 136 (136-145) mEq/L Potassium 2.5 L* (3.5-5.1) mEq/L Chloride 97 L (98-107) mEq/L Carbon Dioxide 28 (23-29) mEq/L BUN 15 (6-20) mg/dL Creatinine 0.85 (0.60-1.20) mg/dL Est GFR ( Amer) > 60 (> 60) Est GFR (Non-Af Amer) > 60 (> 60) BUN/Creatinine Ratio 18 (6-26) Glucose 141 H (70-105) mg/dL Calculated Osmolality 285 (280-300) Calcium 9.5 (8.6-10.3) mg/dL Magnesium 2.2 (1.6-2.6) mg/dL Troponin I < 0.03 (< 0.04) ng/mL B-Natriuretic Peptide (Less than 100) pg/mL Attestation Statement - Attestation Attestation: I, Salomón Garibay, examined this patient and my medical decision-making was reviewed with the W[employer] PLANT OPERATOR/PA/Advanced Practice Nurse/Resident Physician. I agree with the documented findings, disposition and treatment plan as described except to the extent set forth below. 47-year-old female presents emergency Department with concerns of acute onset chest pain. 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 Patient had associated diaphoresis and shortness of breath. Patient had a similar episode of similar pain which was diagnosed as possibly secondary to hypokalemia. Patient has described increased weakness and fatigue over the past few days. Patient has a history of hypokalemia and is supposed be taking potassium replacement however she has been intermittently taking the medication. Initial troponin negative. EKG showed mild diffuse ST depressions however this is unchanged from previous EKG. Patient felt comfortable with the plan to be admitted to the hospital for further care and evaluation. Potassium replaced in the emergency department.
--- NOTE | 2017-11-25 15:33 | Internal Med History&Physical ---
<Carol Houser - Last Filed: 11/25/17 15:31> Date of Encounter: 11/25/17 Time of Encounter: 15:31 Internal Medicine - H&P: HPI Chief complaint: Chest pain Admitted From: Home History of present illness: Ms. Salvador is a 47 year old female with PMH hypertension, insomnia, depression and morbid obesity presented to [facility] on 11/25/2017 with complaints of chest pain. She was placed in observation status for ACS rule out. Information obtained from chart review and patient report. 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 Chest pain now resolved. Nothing makes symptoms better or worse and therefore she came to the ER. She also reports associated diaphoresis and nausea. No shortness of breath. Past Med Surg Social Fam HX - Past Medical History Medical history: arthritis, GERD, hypertension, other Additional medical history: Bacterial pneumonia Psychiatric history: anxiety, depression - Past Surgical History Surgical History: , cholecystectomy, other Additional surgical history: jaw. 2 c-sections - Social History Smoking Status: Former smoker Smokeless Tobacco Status: No Alcohol use: none Drug use: none - Family History Mother Living Status: Still Living Hx Family Respiratory Disorders: Yes (COPD) Father Living Status: Still Living Hx Family Cardiac Disorders: Yes Internal Medicine - H&P: Meds ALPRAZolam [Xanax 0.5 MG Tablet] 0.5 mg PO BID PRN 02/28/17 [History] Zolpidem [Ambien] 10 mg PO HS 02/28/17 [History] Aspirin Enteric Coated [Aspirin EC] 81 mg PO DAILY #30 tablet. 03/01/17 [Rx] Potassium Chloride 40 meq PO DAILY 4 Days #8 tab.er.prt 07/25/17 [Rx] Mirtazapine [Remeron] 45 mg PO HS 11/25/17 [History] Olmesartan/Hydrochlorothiazide [Olmesartan-Hctz 20-12.5 mg Tab] 1 tab PO DAILY 11/25/17 [History] Oxybutynin Chloride [Ditropan Xl] 10 mg PO DAILY 11/25/17 [History] Sertraline [Zoloft] 200 mg PO DAILY 11/25/17 [History] 3 Allergy/AdvReac Type Severity Reaction Status Date / Time promethazine [From Phenergan] AdvReac Agitated Verified 11/25/17 14:53 All Systems PM: A 10-system review of systems was performed and is negative for pertinent findings except as documented above in the HPI. - Constitutional Constitutional: excessive sweating, no chills, no fever(s), no night sweats - EENT Eyes: no change in vision, no discharge, no pain, no photophobia Ears: no ear discharge, no ear pain, no tinnitus Nose, mouth and throat: no dysphagia, no nasal discharge, no neck pain, no sore throat - Cardiovascular Cardiovascular ROS IM: chest pain, diaphoresis, no dyspnea, no lightheadedness, no palpitations, no syncope - Respiratory Respiratory: cough, no dyspnea, no wheezing, no excessive phlegm production - Gastrointestinal Gastrointestinal: nausea, no abdominal pain, no diarrhea, no hematemesis, no hematochezia, no melena, no vomiting - Genitourinary Genitourinary: no change in urinary stream, no dysuria, no flank pain, no hematuria - Musculoskeletal Musculoskeletal ROS IM: no numbness, no tingling - Integumentary Integumentary IM: no rash, no unusual bruising - Neurological Neurological ROS: no confusion, no convulsions, no focal weakness, no numbness, no tingling, no tremor(s) - Hematologic/Lymphatic Hematologic/Lymphatic: no easy bruising - Constitutional Vitals: Temp Pulse Resp BP Pulse Ox 98.2 F 84 16 121/71 100 11/25/17 13:10 11/25/17 14:32 11/25/17 14:32 11/25/17 14:32 11/25/17 14:32 General appearance: Present: A&O X 3, morbidly obese, no acute distress - Head Head exam: Present: atraumatic, normocephalic - Eye Eye exam: Present: PERRL, conjuntiva pink, sclera anicteric Pupils: Present: PERRL - Neck Neck exam general surgery: Present: supple, trachea midline. Absent: lymphadenopathy - Respiratory Respiratory exam: Present: CTAB. Absent: accessory muscle use, rales, rhonchi, wheezes - Cardiovascular Cardiovascular exam: Present: RRR, +S1, +S2. Absent: diastolic murmur, gallop, rubs, systolic murmur - GI/Abdominal GI/Abdominal exam: Present: normal bowel sounds, soft, no peritoneal signs. Absent: distended, tenderness - Extremities Exam Extremities exam: Present: warm, radial pulses palpable and symmetrical. Absent : calf tenderness, cyanotic, pedal edema - Neurological Exam Neurological exam: Present: CN II-XII intact, oriented X3, no focal deficits. Absent: pronater drift, facial droop, speech deficit - Skin Skin exam: Present: dry, intact Internal Med - H&P Results - Labs CBC & Chem 7: 11/25/17 13:41 11/25/17 13:41 - Assessment and plan (1) Chest pain Current Visit: Yes Status: Acute Assessment and plan: presented with chest pain that occurred while doing heavy lifting with associated diaphoresis and nausea. No known CAD however cardiac risk factors include hypertension, family history morbid obesity. 02/2017 stress test negative for ischemia. Initial troponin negative, EKG without acute ST changes. CXR unremarkable. Wells score with low probability for pulmonary embolism; D-dimer normal effectively ruling out pulmonary embolism. Check echocardiogram, cycle troponin. Cardiology consulted Qualifiers: Chest pain type: unspecified Qualified Code(s): R07.9 - Chest pain, unspecified (2) Hypokalemia Current Visit: Yes Status: Acute Assessment and plan: appears to be chronic as patient is on potassium supplements. K2.5 on arrival. Replaced in ED. Monitor repeat potassium level. Replace PRN (3) HTN (hypertension) Current Visit: Yes Status: Acute Assessment and plan: per hx. BP controlled. Cont home BP medication. Monitor BP and titrate PRN Qualifiers: Hypertension type: essential hypertension Qualified Code(s): I10 - Essential (primary) hypertension (4) Depression Current Visit: Yes Status: Acute Assessment and plan: per hx. Cont home medications. Qualifiers: Depression Type: major depressive disorder Major depression recurrence: unspecified whether recurrent Active/Remission status: currently active Major depression episode severity: mild Qualified Code(s): F32.0 - Major depressive disorder, single episode, mild (5) Insomnia Current Visit: Yes Status: Acute Assessment and plan: per hx. Cont home ambien Qualifiers: Insomnia type: primary Qualified Code(s): F51.01 - Primary insomnia (6) Morbid obesity with BMI of 40.0-44.9, adult Current Visit: No Status: Chronic Assessment and plan: BMI 43, weight 125 kg. Lifestyle and dietary modifications encouraged (7) DVT prophylaxis Current Visit: Yes Status: Acute Assessment and plan: heparin - Time Spent With Patient Total time spent is greater than 50% in coordination of care (as documented) at patient's floor/unit and/or counseling patient: <Lexa Cool - Last Filed: 11/25/17 19:59> Date of Encounter: 11/25/17 Internal Medicine - H&P: HPI History of present illness: Ms. Salvador is a 47 year old female All Systems PM: A 10-system review of systems was performed and is negative for pertinent findings except as documented above in the HPI. - Constitutional Vitals: Temp Pulse Resp BP Pulse Ox 98.6 F 81 16 105/68 98 11/25/17 18:32 11/25/17 18:32 11/25/17 18:32 11/25/17 18:32 11/25/17 18:32 Internal Med - H&P Results - Labs CBC & Chem 7: 11/25/17 13:41 11/25/17 13:41 - Attending Attestation I have seen and examined this pt independently. I have discussed with ENGRAVER LETTERING Houser regarding the management plan. Agree with the documentation. - Assessment and plan (1) Hypokalemia Current Visit: Yes Status: Acute (2) Morbid obesity with BMI of 40.0-44.9, adult Current Visit: No Status: Chronic (3) Chest pain Current Visit: Yes Status: Acute Qualifiers: Chest pain type: unspecified Qualified Code(s): R07.9 - Chest pain, unspecified (4) HTN (hypertension) Current Visit: Yes Status: Acute Qualifiers: Hypertension type: essential hypertension Qualified Code(s): I10 - Essential (primary) hypertension (5) Depression Current Visit: Yes Status: Acute Qualifiers: Depression Type: major depressive disorder Major depression recurrence: unspecified whether recurrent Active/Remission status: currently active Major depression episode severity: mild Qualified Code(s): F32.0 - Major depressive disorder, single episode, mild (6) Insomnia Current Visit: Yes Status: Acute Qualifiers: Insomnia type: primary Qualified Code(s): F51.01 - Primary insomnia (7) DVT prophylaxis Current Visit: Yes Status: Acute - Time Spent With Patient Total time spent is greater than 50% in coordination of care (as documented) at patient's floor/unit and/or counseling patient:
[2017-11-25] MEDS: *HR* Heparin 5,000 UNIT/ML VIAL SQ SCH (20:23)
[2017-11-25] MEDS ORDERED: Mirtazapine 15 MG TABLET PO SCH (21:00)
[2017-11-25] MEDS ORDERED: Perflutren Lipid Microsphere 1.3 ML in 0.9 % Sodium Chloride 8.7 ML IVP ONE (21:06)
[2017-11-25] MEDS ORDERED: Ondansetron 4 MG/2 ML VIAL IVP PRN (21:55)
[2017-11-26 01:08] LABS: Basophils % 0.5 %; Eosinophils # 0.1 K/mcL (0.0-0.6); Eosinophils % 1.5 %; Hemoglobin 9.8 g/dL (11.5-15.4); Immature Granulocytes % 0.5 % (0-4); Lymphocytes # 1.7 K/mcL (0.6-4.6); Lymphocytes % 26.6 %; Mean Corpuscular HGB Conc 31.6 g/dL (31.6-35.5); Mean Corpuscular Volume 72.6 fL (83.0-100.0); Mean Platelet Volume 9.6 fL (9.4-12.4); Monocytes # 0.4 K/mcL (0.0-1.3); Monocytes % 6.5 %; Neutrophils # 4.2 K/mcL (1.6-8.9); Platelet Count 284 K/mcL (140-400); Red Blood Count 4.27 M/mcL (3.82-4.97); Red Cell Distribution Width 19.1 % (11.5-14.5); Segmented Neutrophils % 64.4 %
[2017-11-26 01:27] LABS: BUN/Creatinine Ratio 18 (6-26); Blood Urea Nitrogen 14 mg/dL (6-20); Calcium 8.6 mg/dL (8.6-10.3); Carbon Dioxide 29 mEq/L (23-29); Chloride 99 mEq/L (98-107); Chol/HDL Ratio 4.4 (0-4.9); Cholesterol 151 mg/dL (< 200); Glucose 138 mg/dL (70-105); HDL Cholesterol 34 mg/dL (40-59); LDL Cholesterol,Calculated 87 mg/dL (0-99); Osmolality,Calculated 285 (280-300); Potassium 2.8 mEq/L (3.5-5.1); Sodium 136 mEq/L (136-145); Triglycerides 150 mg/dL (< 150); eGFR For Non-African Americans > 60 (> 60)
[2017-11-26] MEDS: *HR* Heparin 5,000 UNIT/ML VIAL SQ SCH (05:30)
[2017-11-26] MEDS ORDERED: hydroCHLOROthiazide 25 MG TABLET PO SCH (09:00)
[2017-11-26] MEDS ORDERED: Losartan/HCTZ 50-12.5 TABLET PO SCH (09:00)
[2017-11-26] MEDS ORDERED: Aspirin Enteric Coated 81 MG Tablet PO SCH (09:00)
[2017-11-26] MEDS ORDERED: Potassium Chloride 40 MEQ, Lidocaine 1% 2 ML in D5% in Water 500 ML IVPB ONE (10:44)
--- NOTE | 2017-11-26 10:50 | Cardiology Consult Note ---
<Elisa Isaac - Last Filed: 11/26/17 11:22> Date of Encounter: 11/26/17 Time of Encounter: 10:20 Assessment and Plan (1) Chest pain Status: Resolved Atypical chest pain symptoms. ECG unchanged from previous. Troponin negative x3. Patient reports similar symptoms in the past with low potassium. K was 2.5 upon presentation. Recent negative nuclear stress test in 2016. TTE shows preserved LVEF with normal wall motion. Recommend replacement of Potassium, IVPB ordered. No further inpatient testing recommended at this time. Close follow-up with PCP. Anticipate sign-off once seen and evaluated by Dr. Alfaro. Qualifiers: Chest pain type: precordial pain Qualified Code(s): R07.2 - Precordial pain (2) Hypokalemia Status: Acute Chronic. Patient reports several missed doses of home potassium chloride over the past several days. Given K was severely low, recommend IV replacement, rider ordered. Discussion w patient/family: The assessment and plan as outlined above was discussed with the patient and/or family members who expressed understanding and agreement. All questions were answered. Thank you for involving us in the care of your patient. Please call with any questions. The patient will be discussed and reviewed with Dr. Alfaro; Recommend close outpatient follow-up with PCP. History of Present Illness Consult date: 11/26/17 Requesting physician: Lexa Cool Consult reason: Chest pain Chief complaint: Pre-syncope, chest discomfort History of present illness: Ms. 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 She reports she had carried several bags/boxes of groceries to cars yesterday morning without issues. Later yesterday, while seated she developed right sided chest "spasm" that radiated to back and neck. Patient reports discomfort lasted nearly an hour, resolved without intervention. Associated symptoms included lightheadedness and dizziness. She was then encouraged to go to the ED for further evaluation. She notes she takes supplemental potassium chloride due to history of hypokalemia, however had missed several doses over the past few days. Troponin negative x3. ECG unchanged from previous. Prior CV testing: Nuclear stress 02/2017: gated EF>70%, no TID, perfusion negative for ischemia or infarct. Past Med Surg Social Fam HX - Past Medical History Attestation: Yes The following information was validated with the patient. Source: patient Medical history: arthritis, GERD, hypertension, other Additional medical history: Bacterial pneumonia Psychiatric history: anxiety, depression - Past Surgical History Surgical History: , cholecystectomy, other Additional surgical history: jaw. 2 c-sections - Social History Smoking Status: Former smoker Smokeless Tobacco Status: No Alcohol use: none Drug use: none - Family History Mother Living Status: Still Living Hx Family Respiratory Disorders: Yes (COPD) Father Living Status: Still Living Hx Family Cardiac Disorders: Yes Medications and Allergies ALPRAZolam [Xanax 0.5 MG Tablet] 0.5 mg PO BID PRN 02/28/17 [History] Zolpidem [Ambien] 10 mg PO HS 02/28/17 [History] Aspirin Enteric Coated [Aspirin EC] 81 mg PO DAILY #30 tablet.dr 03/01/17 [Rx] Potassium Chloride 40 meq PO DAILY 4 Days #8 tab.er.prt 07/25/17 [Rx] Mirtazapine [Remeron] 45 mg PO HS 11/25/17 [History] Olmesartan/Hydrochlorothiazide [Olmesartan-Hctz 20-12.5 mg Tab] 1 tab PO DAILY 11/25/17 [History] Oxybutynin Chloride [Ditropan Xl] 10 mg PO DAILY 11/25/17 [History] Sertraline [Zoloft] 200 mg PO DAILY 11/25/17 [History] 3 Allergy/AdvReac Type Severity Reaction Status Date / Time promethazine [From Phenergan] AdvReac Agitated Verified 11/25/17 14:53 All Systems Review: The remainder of the systems were reviewed and are negative - Cardiovascular Cardiovascular: as per HPI Physical Examination Vital Signs, Last 4 Hours Temp Pulse Resp BP Pulse Ox 11/26/17 06:58 98.2 F 77 18 113/69 92 General: Conversant, No Apparent Distress, Other (obese) HEENT: Atraumatic, Normocephaly, Mucus Membranes Moist Neck: No JVD, Normal carotid pulses Cardiac: Reg Rate and Rhythm, Normal S1 and S2, No Murmur Lungs: Normal Breath Sounds, No Wheeze, Rales, Rhonchi Neuro: Alert and responsive, No focal deficits noted Abdomen: Soft, Non-Tender Skin: No rashes noted on visualized skin Musculoskeletal: No Chest Wall Tenderness Extremities: No Clubbing, No Cyanosis, No Edema, Normal Pulses Results 11/26/17 00:43 11/26/17 00:43 Lab Results 11/25/17 11/26/17 11/26/17 19:29 00:43 00:43 WBC 6.5 Hgb 9.8 L D Hct 31.0 L Plt Count 284 Sodium Potassium Chloride Carbon Dioxide BUN Creatinine Glucose Calcium Troponin I < 0.03 < 0.03 B-Natriuretic Peptide 11/26/17 11/26/17 00:43 00:43 WBC Hgb Hct Plt Count Sodium 136 Potassium 2.8 L Chloride 99 Carbon Dioxide 29 BUN 14 Creatinine 0.80 Glucose 138 H Calcium 8.6 Troponin I B-Natriuretic Peptide 8 Active Medications Alprazolam (Xanax) 0.5 mg PO BID PRN; Protocol PRN Reason: Anxiety Stop: 05/27/18 15:30 Aspirin (Aspirin Ec) 81 mg PO DAILY [facility] Stop: 05/28/18 09:01 HCTZ/Losartan Potassium (Hyzaar 50/12.5) 1 each PO DAILY [facility] Stop: 05/28/18 09:01 Heparin Sodium (Porcine) (Heparin) 5,000 unit SQ Q8HCO [facility] Stop: 05/27/18 22:01 Last Admin: 11/26/17 05:30 Dose: 5,000 unit Potassium Chloride 40 meq/ (Lidocaine 2 ml/ Dextrose) 522 mls @ 130.5 mls/hr IVPB ONCE ONE Stop: 11/26/17 14:43 Mirtazapine (Remeron) 45 mg PO HS [facility] Stop: 05/27/18 21:01 Last Admin: 11/25/17 20:23 Dose: 45 mg Naloxone HCl (Narcan) 0.4 mg IVP Q2MIN PRN PRN Reason: SEE COMMENTS Stop: 05/27/18 15:27 Ondansetron HCl (Zofran) 4 mg IVP Q6HR PRN; Protocol PRN Reason: Nausea And Vomiting Stop: 05/27/18 21:56 Last Admin: 11/25/17 22:17 Dose: 4 mg Oxybutynin Chloride (Ditropan) 5 mg PO BID [facility] Stop: 02/14/19 09:01 Potassium Chloride (Potassium Chloride) 40 meq PO DAILY [facility] Stop: 05/28/18 09:01 Potassium Chloride (Potassium Chloride) 40 meq PO ONCE ONE Stop: 11/26/17 14:01 Sertraline HCl (Zoloft) 200 mg PO DAILY [facility] Stop: 05/28/18 09:01 Zolpidem Tartrate (Ambien) 10 mg PO HS SOFY PRN Reason: Protocol Stop: 05/27/18 21:01 Last Admin: 11/25/17 20:23 Dose: 10 mg - Imaging and Cardiology Stress Test: report reviewed Echo: report reviewed Other Results: 12 hour tele: avg HR=74 SR. No events noted. - EKG Interpretation EKG results cardiology: personally reviewed Consult Discharge Plan - Plan Instructions: Chest Pain (DC), Hypokalemia (DC) Referrals: Constantino Park DO [Primary Care Provider] - 11/27/17 1:30 pm (Please call within 1 week to make follow-up appointment) <Mandeep Alfaro - Last Filed: 11/28/17 15:13> Date of Encounter: 11/26/17 Time of Encounter: 12:00 - Attending Attestation I have personally performed a face to face evaluation on this patient. I have reviewed and agree with the care plan. 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 She reports chest pain was associated with dizziness and near syncope, although did not feel palpitations, nausea, diphoresis during the chest pain. Chest pain lasted for around an hour, resolved spontaneously. PT notes has long hx of hypokalemia, symptoms at presentatoin same as she has experienced in the past when was hypokalemic. She is currently pain free, resting comfortably., ROS: reviewed PMH: reviewed PE: pt seen and examined, agree with findings as documented IMP/Plan: 1. Non-cardiac chest pain, symptoms most consistent with musculoskeletal etiology, no further cardiac evaluation required. 2. Hypokalemia - profound, 2.5 on admission, replacement ordered. 3. Hypertension: controlled. Assessment and Plan Discussion w patient/family: The assessment and plan as outlined above was discussed with the patient and/or family members who expressed understanding and agreement. All questions were answered. Thank you for involving us in the care of your patient. Please call with any questions. History of Present Illness History of present illness: Ms. Salvador is a 47 year old female All Systems Review: The remainder of the systems were reviewed and are negative Results 11/26/17 00:43 11/26/17 16:00
--- NOTE | 2017-11-26 11:14 | Discharge Summary ---
- NOTES TO OUTPATIENT PROVIDER Notes to Outpatient Provider: Recommend BMP within 1 week to monitor potassium Orders not resulted at time of discharge: Pending orders 11/26/17 10:50 ECG 12 lead ECG [ECG] Routine Date of Encounter: 11/26/17 Time of Encounter: 11:10 - Discharge Diagnosis (1) Chest pain Priority: Primary Status: Acute Qualifiers: Chest pain type: unspecified Qualified Code(s): R07.9 - Chest pain, unspecified (2) Hypokalemia Priority: Primary Status: Acute (3) HTN (hypertension) Priority: Primary Status: Acute Qualifiers: Hypertension type: essential hypertension Qualified Code(s): I10 - Essential (primary) hypertension (4) Depression Priority: Primary Status: Acute Qualifiers: Depression Type: major depressive disorder Major depression recurrence: unspecified whether recurrent Active/Remission status: currently active Major depression episode severity: mild Qualified Code(s): F32.0 - Major depressive disorder, single episode, mild (5) Insomnia Priority: Primary Status: Acute Qualifiers: Insomnia type: primary Qualified Code(s): F51.01 - Primary insomnia (6) Morbid obesity with BMI of 40.0-44.9, adult Priority: Primary Status: Chronic Hospital course: Ms. Salvador is a 47 year old female with PMH hypertension, insomnia, depression and morbid obesity presented to [facility] on 11/25/2017 with complaints of chest pain. She was placed in observation status for ACS rule out. ACS was ruled out with negative serial troponins, EKG without acute ST changes. Echocardiogram with preserved EF, no wall motion abnormalities, no significant valvular dysfunction. 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 Of note she was found to be hypokalemic with a potassium of 2.5; patient has chronic hypokalemia and takes potassium supplements at home but apparently had missed several days likely resulting in acute on chronic hypokalemia. Her potassium normalized with additional supplementation. She was discharged home in stable condition with outpatient follow-up. Discharge discussed with: patient (Seen and examined at bedside. Says she feels better like to go home today if possible. No further chest pain or shortness of breath. Advised on strict medication compliance with potassium supplementation. Patient verbalized understanding.) - Time Spent with Patient Total time spent providing and/or coordinating discharge services: - Discharge Medications Home Medications: ALPRAZolam [Xanax 0.5 MG Tablet] 0.5 mg PO BID PRN 02/28/17 [History] Zolpidem [Ambien] 10 mg PO HS 02/28/17 [History] Aspirin Enteric Coated [Aspirin EC] 81 mg PO DAILY #30 tablet.dr 03/01/17 [Rx] Potassium Chloride 40 meq PO DAILY 4 Days #8 tab.er.prt 07/25/17 [Rx] Mirtazapine [Remeron] 45 mg PO HS 11/25/17 [History] Olmesartan/Hydrochlorothiazide [Olmesartan-Hctz 20-12.5 mg Tab] 1 tab PO DAILY 11/25/17 [History] Oxybutynin Chloride [Ditropan Xl] 10 mg PO DAILY 11/25/17 [History] Sertraline [Zoloft] 200 mg PO DAILY 11/25/17 [History] Allergies/Adverse Reactions: 3 Allergy/AdvReac Type Severity Reaction Status Date / Time promethazine [From Phenergan] AdvReac Agitated Verified 11/25/17 14:53 Date of admission: 11/25/17 15:05 Primary care physician: Constantino Park DO Consults: 11/25/17 15:29 Consult to Cardiology [CONS] Stat Comment: Consulting Provider: Cardiology Anne Reason for Consult: Recurrent chest pain Call Completed: Yes Discharging clinician: Carol Houser Anticipated date of discharge: 11/26/17 - Constitutional Vitals: Temp Pulse Resp BP Pulse Ox 98.2 F 77 18 113/69 92 11/26/17 06:58 11/26/17 06:58 11/26/17 06:58 11/26/17 06:58 11/26/17 06:58 General appearance: Present: A&O X 3, morbidly obese, no acute distress - Head Head exam: Present: atraumatic, normocephalic - Eye Eye exam: Present: PERRL, conjuntiva pink, sclera anicteric Pupils: Present: PERRL - Neck Neck exam general surgery: Present: supple, trachea midline. Absent: lymphadenopathy - Respiratory Respiratory exam: Present: CTAB. Absent: accessory muscle use, rales, rhonchi, wheezes - Cardiovascular Cardiovascular exam: Present: RRR, +S1, +S2. Absent: diastolic murmur, gallop, rubs, systolic murmur - GI/Abdominal GI/Abdominal exam: Present: normal bowel sounds, soft, no peritoneal signs. Absent: distended, tenderness - Extremities Exam Extremities exam: Present: warm, radial pulses palpable and symmetrical. Absent : calf tenderness, cyanotic, pedal edema - Neurological Exam Neurological exam: Present: CN II-XII intact, oriented X3, no focal deficits. Absent: pronater drift, facial droop, speech deficit - Skin Skin exam: Present: dry, intact - Patient Status Disposition: Home, Self-Care Condition: Good Functional capacity at discharge: independent ambulation Overall status at discharge: patient is back to baseline - Discharge Instructions Instructions: Chest Pain (DC), Hypokalemia (DC) Follow Up With: Constantino Park DO [Primary Care Provider] - 11/27/17 1:30 pm (Please call within 1 week to make follow-up appointment) - Diet and Activity Activity: increase activity as tolerated Diet: advance to your usual diet
[2017-11-26 11:17] VITALS: BP 129/65
--- NOTE | 2017-11-26 17:33 | Electrocardiograph Report ---
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
--- NOTE | 2017-11-27 08:23 | Electrocardiograph Report ---
[place] [address] Test Date: 2017-11-26 Pat Name: Josey Salvador Department: 113 Room: 3B47 Gender: F Drafter (Cad) Electronic: : 1970 Requested By: Elisa Isaac Order Number: [id number] Reading MD: Sho Nicholson Measurements Intervals [place] Rate: 65 P: -9 ND: 152 QRS: -8 QRSD: 84 T: -14 QT: 408 QTc: 420 Interpretive Statements SINUS RHYTHM LOW QRS VOLTAGE IN PRECORDIAL LEADS Electronically Signed On 11-27-2017 8:21:32 EDT by Sho Nicholson
--- NOTE | 2017-11-27 13:56 | Electrocardiograph Report ---
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
== END 2017-11-26 17:30 | disposition home or self-care (01) ==
LOC: 3BNU 13:08 → EMEROOARM 13:08 → 3BNU 15:43
PROVIDERS: ADMIT Internal Medicine; ATTEND Internal Medicine

== ENCOUNTER 2018-06-29 16:17 | Inpatient (IN) ==
[2018-06-29 16:56] LABS: Bilirubin,Urine Negative (Negative); Blood,Urine Negative (Negative); Clarity,Urine Clear (Clear); Color,Urine Yellow (Yellow); Glucose,Urine (UA) Normal (Normal); Ketones,Urine Negative (Negative); Leukocyte Esterase,Urine Negative (Negative); Nitrite,Urine Negative (Negative); PH,Urine 5.5 pH Units (5.0-8.0); Protein,Urine Negative (Neg-Trace); Specific Gravity,Urine 1.024 (1.010-1.025); Urobilinogen,Urine Normal (Normal)
[2018-06-29 17:03] LABS: Amphetamine Screen,Urine Negative ng/mL (Cutoff=1000); Barbiturate Screen,Urine Negative ng/mL (Cutoff=200); Benzodiazepines Screen,Urine Positive ng/mL (Cutoff=200); Cannabinoid Screen,Urine Negative ng/mL (Cutoff = 50); Cocaine Screen,Urine Negative ng/mL (Cutoff= 300); Opiate Screen,Urine Negative ng/mL (Cutoff=300); Phencyclidine Screen,Urine Negative ng/mL (Cutoff=25)
--- NOTE | 2018-06-29 17:10 | Emergency Department Note ---
Disposition Clinical Impression: Suicidal ideation Disposition: Still a Patient Referrals: NONE,PCP [Primary Care Provider] - Forms: ED Satisfaction Letter General Adult HPI - General Chief complaint: ED Psychiatric Symptoms Stated complaint: SI Time Seen by Provider: 06/29/18 16:26 Source: patient Limitations: no limitations Nursing Notes Reviewed: Yes Vital Signs Reviewed: Yes - History of Present Illness HPI Narrative: Attestation note: Patient was seen with the emergency medicine resident/nurse practitioner/physician assistant director of residence life/transitional resident/medical student: Dr. Mike VU I have personally performed a face to face evaluation on this patient. I have reviewed and agree with history and physical examination patient management and disposition. Briefly the salient points of the case are as follows: 47-year-old female history of anxiety and depression comes in with suicidal ideations. She said "critical my pills". Patient's physical examination was benign afebrile with stable vital signs. Patient will undergo medical clearance and then be evaluated by mental health services. Disposition pending. Pain Scale: 0 - Related Data Home Medications Medication Instructions Recorded Confirmed ALPRAZolam [Xanax 0.5 MG Tablet] 0.5 mg PO BID PRN 02/28/17 11/25/17 Zolpidem [Ambien] 10 mg PO HS 02/28/17 11/25/17 Mirtazapine [Remeron] 45 mg PO HS 11/25/17 11/25/17 Olmesartan/Hydrochlorothiazide 1 tab PO DAILY 11/25/17 11/25/17 [Olmesartan-Hctz 20-12.5 mg Tab] Oxybutynin Chloride [Ditropan Xl] 10 mg PO DAILY 11/25/17 11/25/17 Sertraline [Zoloft] 200 mg PO DAILY 11/25/17 11/25/17 Bentyl 12/27/17 Zofran 12/27/17 Previous Rx's Medication Instructions Recorded Aspirin Enteric Coated [Aspirin EC] 81 mg PO DAILY #30 tablet. 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 - Social History Smoking Status: Never smoker Smokeless Tobacco Status: No Alcohol use: Reports: none Drug use: Reports: none Physical Exam - General Limitations: no limitations General appearance: alert, in no apparent distress Course Vital Signs Temperature 97.7 F 06/29/18 16:21 Pulse Rate 97 06/29/18 16:21 Respiratory Rate 18 06/29/18 16:21 Blood Pressure 178/91 06/29/18 16:21 O2 Sat by Pulse Oximetry 98 06/29/18 16:21 Temperature 97.7 F 06/29/18 16:21 Pulse Rate 97 06/29/18 16:21 Respiratory Rate 18 06/29/18 16:21 Blood Pressure 178/91 06/29/18 16:21 O2 Sat by Pulse Oximetry 98 06/29/18 16:21 Oxygen Delivery Oxygen Delivery Room Air Medical Decision Making - Lab Data Lab Results 06/29/18 06/29/18 Range/Units 16:44 16:44 Urine Color Yellow (Yellow) Urine Clarity Clear (Clear) Urine pH 5.5 (5.0-8.0) pH Units Ur Specific [place] 1.024 (1.010-1.025) Urine Protein Negative (Neg-Trace) mg/dL Urine Glucose (UA) Normal (Normal) mg/dL Urine Ketones Negative (Negative) mg/dL Urine Blood Negative (Negative) Urine Nitrite Negative (Negative) Urine Bilirubin Negative (Negative) Urine Urobilinogen Normal (Normal) mg/dL Ur Leukocyte Esterase Negative (Negative) Urine Opiates Screen Negative (Dflbza=253) ng/mL Ur Barbiturates Screen Negative (Nygqik=609) ng/mL Ur Phencyclidine Scrn Negative (Cutoff=25) ng/mL Ur Amphetamines Screen Negative (Wggloi=7531) ng/mL U Benzodiazepines Scrn Positive H (Lwjtal=196) ng/mL Urine Cocaine Screen Negative (Cutoff= 300) ng/mL U Marijuana (THC) Screen Negative (Cutoff = 50) ng/mL Ur Drug Screen Interp See Below
--- NOTE | 2018-06-29 17:10 | Emergency Department Note ---
Disposition Clinical Impression: Suicidal ideation Disposition: Admitted As Inpatient Condition: Good Psych HPI - General Chief Complaint: ED Psychiatric Symptoms Stated Complaint: SI Time Seen by Provider: 06/29/18 16:26 Source: patient Mode of arrival: private vehicle Limitations: no limitations Nursing Notes Reviewed: Yes Vital Signs Reviewed: Yes - History of Present Illness HPI Narrative: 47-year-old female history of depression presenting with suicidal ideation. Patient reports she would take pills to harm herself. She has done this in the past. Denies any current ingestion. She denies any auditory or visual hallucinations. She reports compliance with her medications. No alcohol or drug use. No other complaints. 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: suicidal ideation, feels depressed Duration: constant History of similar episodes: Yes Improves with: none Worsens with: none Context: significant life stressor Alleged intoxication: No Associated Psychiatric Symptoms: depression, suicidal ideation Associated symptoms: Reports: denies other symptoms Traumatic symptoms: denies traumatic injury Treatments prior to arrival: none Self harm or harm to others: admits thoughts of self harm, has plan - Related Data Home Medications Medication Instructions Recorded Confirmed ALPRAZolam [Xanax 0.5 MG Tablet] 0.5 mg PO BID PRN 02/28/17 11/25/17 Zolpidem [Ambien] 10 mg PO HS 02/28/17 11/25/17 Mirtazapine [Remeron] 45 mg PO HS 11/25/17 11/25/17 Olmesartan/Hydrochlorothiazide 1 tab PO DAILY 11/25/17 11/25/17 [Olmesartan-Hctz 20-12.5 mg Tab] Oxybutynin Chloride [Ditropan Xl] 10 mg PO DAILY 11/25/17 11/25/17 Sertraline [Zoloft] 200 mg PO DAILY 11/25/17 11/25/17 Bentyl 12/27/17 Zofran 12/27/17 Previous Rx's Medication Instructions Recorded Aspirin Enteric Coated [Aspirin EC] 81 mg PO DAILY #30 03/01/17 Potassium Chloride 40 meq PO DAILY 4 Days #8 07/25/17 tab.er.prt Oxybutynin [Ditropan] 5 mg PO BID #60 tablet 12/27/17 Allergies Allergy/AdvReac Type Severity Reaction Status Date / Time promethazine [From Phenergan] Allergy Hives Verified 12/27/17 11:07 All systems ED: reviewed and negative except as stated. Psychiatric: Reports: depression, suicidal thoughts. Denies: anxiety, homicidal thoughts, auditory hallucinations, visual hallucinations Past Medical History - Past Medical History Attestation: Yes The following information was validated with the patient. Source: patient Medical history: Reports: hypertension Surgical history: Reports: , cholecystectomy, other Psychiatric history: Reports: anxiety, depression RESP THER history: Reports: spontaneous , bilateral tubal ligation - Social History Smoking Status: Never smoker Smokeless Tobacco Status: No Alcohol use: Reports: none Drug use: Reports: none Physical Exam - General Limitations: no limitations General appearance: alert, in no apparent distress - Head Head exam: atraumatic, normocephalic, normal inspection - Eye Eye exam: Present: normal appearance - ENT ENT exam: normal exam - Neck Neck exam: Present: normal inspection - Chest Chest inspection: Present: normal inspection, symmetric chest wall rise - Respiratory Respiratory exam: Present: normal lung sounds bilaterally - Cardiovascular Cardiovascular exam: Present: regular rate, normal rhythm, normal heart sounds - Abdominal Exam Abdominal exam: Present: soft, Non-Tender. Absent: tenderness, distention, rigidity - Extremities Exam Extremities exam: Present: normal inspection, full ROM - Expanded Upper Extremity Exam Shoulder exam: Present: normal inspection, full ROM Arm exam: Present: normal inspection, full ROM Elbow exam: Present: normal inspection, full ROM Forearm/Wrist exam: Present: normal inspection, full ROM Hand exam: Present: normal inspection, full ROM - Expanded Lower Extremity Exam Hip/Pelvis exam: Present: normal inspection, full ROM Upper leg exam: Present: normal inspection, full ROM Knee exam: Present: normal inspection, full ROM Lower leg exam: Present: normal inspection, full ROM Ankle exam: Present: normal inspection, full ROM Foot/toe exam: Present: normal inspection, full ROM - Psychiatric Psychiatric exam: Present: depressed, suicidal ideation - Skin Skin exam: Present: warm, dry Course Course Narrative: Patient seen and examined. Vital signs reviewed. Patient is pink slipped. Medical clearance for psychiatric evaluation. - Reevaluation(s) Reevaluation #1: Patient medically cleared. Evaluated by psychiatry. They deemed her appropriate for inpatient admission. Vital Signs Temperature 97.7 F 06/29/18 16:21 Pulse Rate 97 06/29/18 16:21 Respiratory Rate 18 06/29/18 16:21 Blood Pressure 178/91 06/29/18 16:21 O2 Sat by Pulse Oximetry 98 06/29/18 16:21 Temperature 97.7 F 06/29/18 16:21 Pulse Rate 97 06/29/18 16:21 Respiratory Rate 18 06/29/18 16:21 Blood Pressure 178/91 06/29/18 16:21 O2 Sat by Pulse Oximetry 98 06/29/18 16:21 Oxygen Delivery Oxygen Delivery Room Air Psych - MDM Narrative Medical decision making narrative: 47-year-old female presenting with suicidal ideation. Medically cleared. Patient admitted to the psychiatric service. - Lab Data Lab results reviewed: Yes I reviewed the patient's lab results. Result diagrams: 06/29/18 17:03 06/29/18 17:03 Lab Results 06/29/18 06/29/18 06/29/18 Range/Units 16:44 16:44 17:03 WBC 7.0 (4.3-11.1) K/mcL RBC 5.37 H (3.82-4.97) M/mcL Hgb 11.7 (11.5-15.4) g/dL Hct 38.2 (35.3-44.9) % MCV 71.1 L (83.0-100.0) fL MCH 21.8 L (28.0-33.3) pg MCHC 30.6 L (31.6-35.5) g/dL RDW 16.9 H (11.5-14.5) % Plt Count 355 (140-400) K/mcL MPV 9.7 (9.4-12.4) fL Immature Gran % 0.1 (0-4) % Seg Neutrophils % 72.2 % Lymphocytes % 19.4 % Monocytes % 7.0 % Eosinophils % 1.0 % Basophils % 0.3 % Neutrophils # 5.1 (1.6-8.9) K/mcL Lymphocytes # 1.4 (0.6-4.6) K/mcL Monocytes # 0.5 (0.0-1.3) K/mcL Eosinophils # 0.1 (0.0-0.6) K/mcL Basophils # 0.0 (0.0-0.2) K/mcL Sodium (136-145) mEq/L Potassium (3.5-5.1) mEq/L Chloride (98-107) mEq/L Carbon Dioxide (23-29) mEq/L BUN (6-20) mg/dL Creatinine (0.60-1.20) mg/dL Est GFR ( Amer) (> 60) Est GFR (Non-Af Amer) (> 60) BUN/Creatinine Ratio (6-26) Glucose (70-105) mg/dL Calculated Osmolality (280-300) Calcium (8.6-10.3) mg/dL Urine Color Yellow (Yellow) Urine Clarity Clear (Clear) Urine pH 5.5 (5.0-8.0) pH Units Ur Specific [place] 1.024 (1.010-1.025) Urine Protein Negative (Neg-Trace) mg/dL Urine Glucose (UA) Normal (Normal) mg/dL Urine Ketones Negative (Negative) mg/dL Urine Blood Negative (Negative) Urine Nitrite Negative (Negative) Urine Bilirubin Negative (Negative) Urine Urobilinogen Normal (Normal) mg/dL Ur Leukocyte Esterase Negative (Negative) Salicylates (15.0-30.0) mg/dL Urine Opiates Screen Negative (Svnsvf=895) ng/mL Acetaminophen (10-20) mcg/mL Ur Barbiturates Screen Negative (Deswix=888) ng/mL Ur Phencyclidine Scrn Negative (Cutoff=25) ng/mL Ur Amphetamines Screen Negative (Uyshbn=2685) ng/mL U Benzodiazepines Scrn Positive H (Rpnvrx=491) ng/mL Urine Cocaine Screen Negative (Cutoff= 300) ng/mL U Marijuana (THC) Screen Negative (Cutoff = 50) ng/mL Ur Drug Screen Interp See Below Ethyl Alcohol (Less than 10) mg/dL 06/29/18 Range/Units 17:03 WBC (4.3-11.1) K/mcL RBC (3.82-4.97) M/mcL Hgb (11.5-15.4) g/dL Hct (35.3-44.9) % MCV (83.0-100.0) fL MCH (28.0-33.3) pg MCHC (31.6-35.5) g/dL RDW (11.5-14.5) % Plt Count (140-400) K/mcL MPV (9.4-12.4) fL Immature Gran % (0-4) % Seg Neutrophils % % Lymphocytes % % Monocytes % % Eosinophils % % Basophils % % Neutrophils # (1.6-8.9) K/mcL Lymphocytes # (0.6-4.6) K/mcL Monocytes # (0.0-1.3) K/mcL Eosinophils # (0.0-0.6) K/mcL Basophils # (0.0-0.2) K/mcL Sodium 137 (136-145) mEq/L Potassium 2.7 L (3.5-5.1) mEq/L Chloride 96 L (98-107) mEq/L Carbon Dioxide 34 H (23-29) mEq/L BUN 14 (6-20) mg/dL Creatinine 0.86 (0.60-1.20) mg/dL Est GFR ( Amer) > 60 (> 60) Est GFR (Non-Af Amer) > 60 (> 60) BUN/Creatinine Ratio 16 (6-26) Glucose 152 H (70-105) mg/dL Calculated Osmolality 287 (280-300) Calcium 9.5 (8.6-10.3) mg/dL Urine Color (Yellow) Urine Clarity (Clear) Urine pH (5.0-8.0) pH Units Ur Specific [place] (1.010-1.025) Urine Protein (Neg-Trace) mg/dL Urine Glucose (UA) (Normal) mg/dL Urine Ketones (Negative) mg/dL Urine Blood (Negative) Urine Nitrite (Negative) Urine Bilirubin (Negative) Urine Urobilinogen (Normal) mg/dL Ur Leukocyte Esterase (Negative) Salicylates < 2.5 L (15.0-30.0) mg/dL Urine Opiates Screen (Inksds=510) ng/mL Acetaminophen < 10 L (10-20) mcg/mL Ur Barbiturates Screen (Bvgthe=075) ng/mL Ur Phencyclidine Scrn (Cutoff=25) ng/mL Ur Amphetamines Screen (Tlygzy=8365) ng/mL U Benzodiazepines Scrn (Xbphxx=629) ng/mL Urine Cocaine Screen (Cutoff= 300) ng/mL U Marijuana (THC) Screen (Cutoff = 50) ng/mL Ur Drug Screen Interp Ethyl Alcohol < 10 (Less than 10) mg/dL Psychiatric Medical Clearance - Medical Clearance Checklist Medical History: No Social History Section defined Current Vitals: Last Vital Signs Temp 97.7 F 06/29/18 16:21 Pulse 97 03/18/19 16:21 Resp 18 06/29/18 16:21 BP 178/91 06/29/18 16:21 Pulse Ox 98 06/29/18 16:21 Psychiatric Lab Panel: Drug Levels and Toxicity 06/29/18 06/29/18 16:44 17:03 Urine Opiates Screen Negative Acetaminophen < 10 L Ur Barbiturates Screen Negative Ur Phencyclidine Scrn Negative Ur Amphetamines Screen Negative U Benzodiazepines Scrn Positive H Urine Cocaine Screen Negative U Marijuana (THC) Screen Negative Ethyl Alcohol < 10 Abnormal Labs: Abnormal lab results RBC 5.37 M/mcL (3.82-4.97) H 06/29/18 17:03 MCV 71.1 fL (83.0-100.0) L 06/29/18 17:03 MCH 21.8 pg (28.0-33.3) L 06/29/18 17:03 MCHC 30.6 g/dL (31.6-35.5) L 06/29/18 17:03 RDW 16.9 % (11.5-14.5) H 06/29/18 17:03 Potassium 2.7 mEq/L (3.5-5.1) L 06/29/18 17:03 Chloride 96 mEq/L (98-107) L 06/29/18 17:03 Carbon Dioxide 34 mEq/L (23-29) H 06/29/18 17:03 Glucose 152 mg/dL (70-105) H 06/29/18 17:03 Salicylates < 2.5 mg/dL (15.0-30.0) L 06/29/18 17:03 Acetaminophen < 10 mcg/mL (10-20) L 06/29/18 17:03 U Benzodiazepines Scrn Positive ng/mL (Avlbcc=932) H 06/29/18 16:44 Statement of Medical Clearance: I have evaluated the patient, reviewed diagnostic information, and certify that the patient's medical condition is sufficiently stable that transfer to the psychiatric unit does not pose a significant risk of deterioration.
[2018-06-29 17:42] LABS: Basophils % 0.3 %; Eosinophils # 0.1 K/mcL (0.0-0.6); Hematocrit 38.2 % (35.3-44.9); Hemoglobin 11.7 g/dL (11.5-15.4); Immature Granulocytes % 0.1 % (0-4); Lymphocytes # 1.4 K/mcL (0.6-4.6); Lymphocytes % 19.4 %; Mean Corpuscular HGB Conc 30.6 g/dL (31.6-35.5); Mean Corpuscular Hemoglobin 21.8 pg (28.0-33.3); Mean Corpuscular Volume 71.1 fL (83.0-100.0); Mean Platelet Volume 9.7 fL (9.4-12.4); Monocytes # 0.5 K/mcL (0.0-1.3); Neutrophils # 5.1 K/mcL (1.6-8.9); Platelet Count 355 K/mcL (140-400); Red Blood Count 5.37 M/mcL (3.82-4.97); Red Cell Distribution Width 16.9 % (11.5-14.5); Segmented Neutrophils % 72.2 %
[2018-06-29 17:54] LABS: Acetaminophen < 10 mcg/mL (10-20); BUN/Creatinine Ratio 16 (6-26); Blood Urea Nitrogen 14 mg/dL (6-20); Calcium 9.5 mg/dL (8.6-10.3); Carbon Dioxide 34 mEq/L (23-29); Chloride 96 mEq/L (98-107); Ethanol < 10 mg/dL (Less than 10); Glucose 152 mg/dL (70-105); Osmolality,Calculated 287 (280-300); Potassium 2.7 mEq/L (3.5-5.1); Salicylate < 2.5 mg/dL (15.0-30.0); Sodium 137 mEq/L (136-145); eGFR For Non-African Americans > 60 (> 60)
[2018-06-29] MEDS ORDERED: traZODone 50 MG TABLET PO PRN (21:01)
[2018-06-29] MEDS ORDERED: *HR* LORazepam 1 MG TABLET PO PRN (21:01)
[2018-06-29] MEDS ORDERED: Haloperidol Lactate 5 MG/ML VIAL IM PRN (21:01)
[2018-06-29] MEDS ORDERED: *HR* LORazepam 2 MG/ML VIAL IM PRN (21:01)
[2018-06-29] MEDS ORDERED: Mag Hydrox/Al Hydrox/Simeth 30 ML UDC PO PRN (21:01)
[2018-06-29] MEDS ORDERED: MOM Conc 10 ML UD.LIQ PO PRN (21:01)
[2018-06-29] MEDS: Ibuprofen 400 MG TABLET PO PRN (21:39)
[2018-06-29] MEDS: hydrOXYzine pamoate 25 MG CAPSULE PO PRN (21:45)
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
[2018-06-30] MEDS ORDERED: NON-FORMULARY MEDICATION 1 EACH EACH (Oxybutynin Chloride [Ditropan Xl] 10 MG) PO SCH (09:00)
[2018-06-30] MEDS: hydroCHLOROthiazide 25 MG TABLET PO SCH (10:04)
[2018-06-30] MEDS: clonazePAM 1 MG TABLET PO SCH ×2 (10:04→20:57)
[2018-06-30] MEDS: BuPROPion XL (24 HR) 150 MG TABLET PO SCH (10:05)
[2018-06-30] MEDS: ARIPiprazole 5 MG TABLET PO SCH (10:05)
[2018-06-30] MEDS: Potassium Chloride Elixir 20 MEQ/15 ML UDC PO SCH ×2 (10:10→20:54)
[2018-06-30] MEDS: Mirtazapine 15 MG TABLET PO SCH (20:56)
[2018-07-01] MEDS: hydrOXYzine pamoate 25 MG CAPSULE PO PRN ×2 (05:08→20:41)
[2018-07-01] MEDS: Ibuprofen 400 MG TABLET PO PRN (05:09)
[2018-07-01] MEDS: ARIPiprazole 5 MG TABLET PO SCH (10:12)
[2018-07-01] MEDS: BuPROPion XL (24 HR) 150 MG TABLET PO SCH (10:12)
[2018-07-01] MEDS: clonazePAM 1 MG TABLET PO SCH ×2 (10:12→20:41)
[2018-07-01] MEDS: hydroCHLOROthiazide 25 MG TABLET PO SCH (10:12)
[2018-07-01] MEDS: Potassium Chloride Elixir 20 MEQ/15 ML UDC PO SCH ×2 (10:13→20:38)
[2018-07-01 10:26] LABS: Basophils % 0.3 %; Eosinophils # 0.1 K/mcL (0.0-0.6); Eosinophils % 1.7 %; Hematocrit 35.6 % (35.3-44.9); Immature Granulocytes % 0.3 % (0-4); Lymphocytes # 1.3 K/mcL (0.6-4.6); Lymphocytes % 22.4 %; Mean Corpuscular HGB Conc 30.9 g/dL (31.6-35.5); Mean Corpuscular Hemoglobin 22.1 pg (28.0-33.3); Mean Corpuscular Volume 71.6 fL (83.0-100.0); Mean Platelet Volume 9.6 fL (9.4-12.4); Monocytes # 0.4 K/mcL (0.0-1.3); Monocytes % 6.6 %; Neutrophils # 3.9 K/mcL (1.6-8.9); Platelet Count 310 K/mcL (140-400); Red Blood Count 4.97 M/mcL (3.82-4.97); Red Cell Distribution Width 17.2 % (11.5-14.5); Segmented Neutrophils % 68.7 %
[2018-07-01 10:46] LABS: Alanine Aminotransferase 14 Units/L (7-52); Albumin 4.1 g/dL (3.5-5.7); Albumin/Globulin Ratio 1.3 (1.1-2.2); Alkaline Phosphatase 76 Units/L (34-104); Aspartate Amino Transferase 15 Units/L (13-39); BUN/Creatinine Ratio 17 (6-26); Bilirubin,Total 0.6 mg/dL (0.3-1.0); Blood Urea Nitrogen 18 mg/dL (6-20); Calcium 9.3 mg/dL (8.6-10.3); Carbon Dioxide 34 mEq/L (23-29); Chloride 96 mEq/L (98-107); Globulin 3.2 g/dL (2.4-3.5); Glucose 128 mg/dL (70-105); Osmolality,Calculated 292 (280-300); Potassium 2.7 mEq/L (3.5-5.1); Sodium 139 mEq/L (136-145); Total Protein 7.3 g/dL (6.4-8.9); eGFR For Non-African Americans 54 (> 60)
--- NOTE | 2018-07-01 16:08 | Psychiatry Progress Note ---
Addendum entered and electronically signed by Mima Bingham 07/01/18 16:27: Patient's calcium was checked this a.m. due to symptomatic leg cramping and a history of hypokalemia, with a potassium level yesterday of 2.7. Patient's current potassium level continues to be 2.7. As such, and internal medicine consult will be placed. Original Note: Date of Encounter: 07/01/18 Time of Encounter: 10:00 Subjective Interval history: Patient was seen today in groups painting. She reports that she is "better." She does admit that she is "a little sad." He states this is due to wanting to be home. She reports that there is a lot of love and that she enjoys being home with her children. She admits to her anxiety being a 3/10 today. She reports issues with sleep due to leg cramps. She denies issues with appetite. She denies side effects to medication. She denies SI, HI, AH, and VH. She spoke a little bit about her social stressors and questioned about why she wanted to leave tomorrow. 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 She reports that if she is not better, there will be no delivery for the next month. 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 She does admit that she would like more help and is looking into getting this help. Review of Systems Musculoskeletal: Reports: other (Leg cramping) Psychiatric: Reports: depression, anxiety, abnormal sleep pattern. Denies: suicidal ideation, change in appetite, homicidal ideation, auditory hallucinations, visual hallucinations Results - Vital Signs Vital Signs: Temp Pulse Resp BP Pulse Ox 98.1 F 80 20 79/55 93 07/01/18 09:00 07/01/18 09:00 07/01/18 09:00 07/01/18 09:00 07/01/18 09:00 - Drug Levels and Toxicology Drug Levels and Toxicology: None noted this a.m. - Labs Labs: Laboratory Results - last 24 hr 07/01/18 07/01/18 10:04 10:04 WBC 5.7 RBC 4.97 Hgb 11.0 L Hct 35.6 MCV 71.6 L MCH 22.1 L MCHC 30.9 L RDW 17.2 H Plt Count 310 MPV 9.6 Immature Gran % 0.3 Seg Neutrophils % 68.7 Lymphocytes % 22.4 Monocytes % 6.6 Eosinophils % 1.7 Basophils % 0.3 Neutrophils # 3.9 Lymphocytes # 1.3 Monocytes # 0.4 Eosinophils # 0.1 Basophils # 0.0 Sodium 139 Potassium 2.7 L Chloride 96 L Carbon Dioxide 34 H BUN 18 Creatinine 1.08 Est GFR ( Amer) > 60 Est GFR (Non-Af Amer) 54 L BUN/Creatinine Ratio 17 Glucose 128 H Calculated Osmolality 292 Calcium 9.3 Total Bilirubin 0.6 AST 15 ALT 14 Alkaline Phosphatase 76 Serum Total Protein 7.3 Albumin 4.1 Globulin 3.2 Albumin/Globulin Ratio 1.3 - Impressions None noted this a.m. Assessment and Plan (1) Major depressive disorder, recurrent severe without psychotic features Current visit: Yes Status: Acute Plan: Continue hospitalization, Close observation, Suicide Precautions per unit protocol, Encourage participation in unit milieu, Group Therapy, Monitor sleep, Monitor appetite Additional Plan: -Continue bupropion to 300 mg by mouth daily for mood. Patient tolerated increase well. -Continue mirtazapine to 7.5 mg by mouth daily at bedtime for mood and sleep -Continue clonazepam 1mg by mouth twice a day when necessary for anxiety -Continue sertraline 200 mg by mouth daily for mood -Continue aripiprazole 5 mg by mouth daily for mood -Continue zolpidem 10 mg by mouth daily at bedtime when necessary for sleep -Continue when necessary medications -Continue hydroxyzine 25 mg by mouth 3 times a day when necessary for anxiety -continue trazodone 50 mg by mouth daily at bedtime when necessary for sleep -Encourage prescription as patient -Stable housing is verified by patient -Patient reports following up with [facility] for counseling and psychiatric services -Anticipate discharge tomorrow as patient is currently denying suicidal ideation, is future oriented, and is open to treatment outpatient Risks, benefits, side effects, alternatives discussed w/pt: No (No changes made today) Patient agreeable to treatment: Yes Consult Discharge Plan - Plan Referrals: NONE,PCP [Primary Care Provider] - - Attending Attestation I examined this patient and my medical decision-making was reviewed with the Resident Physician. I agree with the documented findings, disposition and treatment plan as described except to the extent set forth below. Psychiatry Exam - Constitutional Vitals: Temp Pulse Resp BP Pulse Ox 98.1 F 80 20 79/55 93 07/01/18 09:00 07/01/18 09:00 07/01/18 09:00 07/01/18 09:00 07/01/18 09:00 General appearance: age & developmentally appropriate, well-groomed, well- nourished, obese Additional observations: Several earrings in ears - Musculoskeletal Gait: other (Not assessed) Station: relaxed Strength & Tone: normal for patient (c) - Psychiatric Patient Orientation: Yes Person, Yes Time, Yes Place, Yes Circumstance Level of alertness: Alert, Follows commands Behavior: calm, cooperative Psychomotor activity: Normal Eye Contact: Maintains Eye Contact Mood Description: Euthymic/stable Patient description of mood: "Better" Affect description: congruent with mood, blunted Speech Volume: Soft/Quiet Speech pattern: normal rate, fluent, spontaneous, limited (Continued decrease in prosody, improved), other (Continued high-pitched voice, possibly baseline) Language & Vocabulary: consistent with education Thought Process: Logical, Linear, Goal Oriented Thought Content: No Suicidal ideation, No Homicidal ideation, No Overt delusions Perceptual Disturbances: No Reacting to internal stimuli, No Auditory hallucinations, No Visual hallucinations Attention Span Ability: Capable of Focused Attention Memory Description: Grossly Intact Patient Reliability: Reliable Historian Fund of knowledge: Yes abstraction ability, Yes aware of current events Intelligence Estimate: Average Judgment: Fair Insight: Full
[2018-07-01] MEDS: Mirtazapine 15 MG TABLET PO SCH (20:39)
[2018-07-02] MEDS: Ibuprofen 400 MG TABLET PO PRN (05:12)
[2018-07-02] MEDS: hydroCHLOROthiazide 25 MG TABLET PO SCH (08:34)
[2018-07-02] MEDS: BuPROPion XL (24 HR) 150 MG TABLET PO SCH (08:34)
[2018-07-02] MEDS: ARIPiprazole 5 MG TABLET PO SCH (08:34)
[2018-07-02] MEDS: clonazePAM 1 MG TABLET PO SCH (08:34)
--- NOTE | 2018-07-02 08:36 | Discharge Summary ---
Date of Encounter: 07/02/18 Time of Encounter: 08:32 Diagnosis - Discharge Diagnosis (1) Major depressive disorder, recurrent severe without psychotic features Status: Acute Medications - Discharge Medications Prescriptions: ARIPiprazole [Abilify] 5 mg PO DAILY #30 tablet BuPROPion XL (24 HR) [Wellbutrin Xl] 300 mg PO DAILY #60 tab.er.24h clonazePAM [Klonopin] 1 mg PO BID 30 Days #60 tablet hydrOXYzine pamoate [HydrOXYzine Pamoate] 25 mg PO TID PRN #30 capsule PRN Reason: Anxiety Mirtazapine [Remeron] 7.5 mg PO HS #30 tablet Sertraline [Zoloft] 200 mg PO DAILY #60 tablet traZODone [TraZODone] 50 mg PO HS PRN #30 tablet PRN Reason: Insomnia Zolpidem [Ambien] 10 mg PO HS PRN 02/28/17 [History] Omeprazole [PriLOSEC] 20 mg PO DAILY 06/29/18 [History] Oxybutynin Chloride [Ditropan Xl] 10 mg PO DAILY 06/29/18 [History] Potassium Chloride Elixir [Potassium Chloride] 20 meq PO BID 06/29/18 [History] hydroCHLOROthiazide [Hydrochlorothiazide] 25 mg PO DAILY 06/29/18 [History] ARIPiprazole [Abilify] 5 mg PO DAILY #30 tablet 07/02/18 [Rx] BuPROPion XL (24 HR) [Wellbutrin Xl] 300 mg PO DAILY #60 tab.er.24h 07/02/18 [Rx] Mirtazapine [Remeron] 7.5 mg PO HS #30 tablet 07/02/18 [Rx] Sertraline [Zoloft] 200 mg PO DAILY #60 tablet 07/02/18 [Rx] clonazePAM [Klonopin] 1 mg PO BID 30 Days #60 tablet 07/02/18 [Rx] hydrOXYzine pamoate [HydrOXYzine Pamoate] 25 mg PO TID PRN #30 capsule 07/02/18 [Rx] traZODone [TraZODone] 50 mg PO HS PRN #30 tablet 07/02/18 [Rx] Allergy/AdvReac Type Severity Reaction Status Date / Time promethazine [From Phenergan] Allergy Hives Verified 12/27/17 11:07 Results Procedures and tests throughout hospitalization: Completed Lab Orders Category Date Time Status Acetaminophen Stat Lab 06/29/18 17:03 Completed Basic Metabolic Panel Stat Lab 06/29/18 17:03 Completed Complete Blood Count [HEME] Routine Lab 07/01/18 10:04 Completed Complete Blood Count [HEME] Stat Lab 06/29/18 17:03 Completed Comprehensive Metabolic Panel Routine Lab 07/01/18 10:04 Completed Drug Screen, Urine [UCHEM] Stat Lab 06/29/18 16:44 Completed Ethanol Stat Lab 06/29/18 17:03 Completed Salicylate Stat Lab 06/29/18 17:03 Completed Urinalysis reflex Microscopic [URIN] Stat Lab 06/29/18 16:44 Completed Laboratory Tests 06/29/18 06/29/18 06/29/18 16:44 16:44 17:03 WBC 7.0 RBC 5.37 H Hgb 11.7 Hct 38.2 MCV 71.1 L MCH 21.8 L MCHC 30.6 L RDW 16.9 H Plt Count 355 MPV 9.7 Immature Gran % 0.1 Seg Neutrophils % 72.2 Lymphocytes % 19.4 Monocytes % 7.0 Eosinophils % 1.0 Basophils % 0.3 Neutrophils # 5.1 Lymphocytes # 1.4 Monocytes # 0.5 Eosinophils # 0.1 Basophils # 0.0 Sodium Potassium Chloride Carbon Dioxide BUN Creatinine Est GFR ( Amer) Est GFR (Non-Af Amer) BUN/Creatinine Ratio Glucose Calculated Osmolality Calcium Total Bilirubin AST ALT Alkaline Phosphatase Serum Total Protein Albumin Globulin Albumin/Globulin Ratio Urine Color Yellow Urine Clarity Clear Urine pH 5.5 Ur Specific [place] 1.024 Urine Protein Negative Urine Glucose (UA) Normal Urine Ketones Negative Urine Blood Negative Urine Nitrite Negative Urine Bilirubin Negative Urine Urobilinogen Normal Ur Leukocyte Esterase Negative Salicylates Urine Opiates Screen Negative Acetaminophen Ur Barbiturates Screen Negative Ur Phencyclidine Scrn Negative Ur Amphetamines Screen Negative U Benzodiazepines Scrn Positive H Urine Cocaine Screen Negative U Marijuana (THC) Screen Negative Ur Drug Screen Interp See Below Ethyl Alcohol 06/29/18 07/01/18 07/01/18 17:03 10:04 10:04 WBC 5.7 RBC 4.97 Hgb 11.0 L Hct 35.6 MCV 71.6 L MCH 22.1 L MCHC 30.9 L RDW 17.2 H Plt Count 310 MPV 9.6 Immature Gran % 0.3 Seg Neutrophils % 68.7 Lymphocytes % 22.4 Monocytes % 6.6 Eosinophils % 1.7 Basophils % 0.3 Neutrophils # 3.9 Lymphocytes # 1.3 Monocytes # 0.4 Eosinophils # 0.1 Basophils # 0.0 Sodium 137 139 Potassium 2.7 L 2.7 L Chloride 96 L 96 L Carbon Dioxide 34 H 34 H BUN 14 18 Creatinine 0.86 1.08 Est GFR ( Amer) > 60 > 60 Est GFR (Non-Af Amer) > 60 54 L BUN/Creatinine Ratio 16 17 Glucose 152 H 128 H Calculated Osmolality 287 292 Calcium 9.5 9.3 Total Bilirubin 0.6 AST 15 ALT 14 Alkaline Phosphatase 76 Serum Total Protein 7.3 Albumin 4.1 Globulin 3.2 Albumin/Globulin Ratio 1.3 Urine Color Urine Clarity Urine pH Ur Specific [place] Urine Protein Urine Glucose (UA) Urine Ketones Urine Blood Urine Nitrite Urine Bilirubin Urine Urobilinogen Ur Leukocyte Esterase Salicylates < 2.5 L Urine Opiates Screen Acetaminophen < 10 L Ur Barbiturates Screen Ur Phencyclidine Scrn Ur Amphetamines Screen U Benzodiazepines Scrn Urine Cocaine Screen U Marijuana (THC) Screen Ur Drug Screen Interp Ethyl Alcohol < 10 Provider Date of admission: 06/29/18 18:29 Primary care physician: PCP NONE Consults: 07/01/18 16:28 Consult to Physician [CONS] Routine Consulting Provider: Mima Bingham Reason for Consult: Patient has a history of hypokalemia with a potassium level of 2.7 yesterday. She reported legs cramps during the night due to her low potassium level. Level was rechecked this AM and was found to be 2.7 again. Please give recommendations for further care of her hypokalemia. Please note call was attempted, but the paging service did not know how to get a hold of the consulting physician Call Completed: No Discharging clinician: Catalina Shafer Psychiatry Exam - Constitutional Vitals: Temp Pulse Resp BP Pulse Ox 97.7 F 71 18 123/86 98 07/01/18 20:24 07/01/18 20:24 07/01/18 20:24 07/01/18 20:24 07/01/18 20:24 General appearance: age & developmentally appropriate, well-groomed, well- nourished - Musculoskeletal Gait: normal Station: relaxed Strength & Tone: normal for patient - Psychiatric Patient Orientation: Yes Person, Yes Time, Yes Place Level of alertness: Alert Behavior: calm, cooperative Psychomotor activity: Normal Eye Contact: Maintains Eye Contact Mood Description: Euthymic/stable Patient description of mood: "better" Affect description: congruent with mood, full range Speech Volume: Normal Speech pattern: normal rate, normal rhythm, normal tone, fluent, spontaneous Language & Vocabulary: consistent with education Thought Process: Linear, Goal Oriented Thought Content: No Suicidal ideation, No Homicidal ideation, No Overt delusions Perceptual Disturbances: No Auditory hallucinations, No Visual hallucinations Attention Span Ability: Capable of Focused Attention Memory Description: Grossly Intact Patient Reliability: Reliable Historian Fund of knowledge: Yes abstraction ability, Yes aware of current events Intelligence Estimate: Average Judgment: Good Insight: Full Hospital Course Hospital course: Ms. Salvador is a 47 year old female who was admitted for depression and anxiety. Her Xanax was stopped and switched for longer acting Klonopin. We increased her Wellbutrin for further improvement of her depression and better energy. And decreased her Remeron to try to improve sleep and reduce weight gain which she had experienced on it.Patient was educated of diagnosis and the risk-benefit side effects of this alternative treatment options and was monitored for responsiveness and side effects. Mood anxiety sleep and appetite interest improved as did future orientation. Self-harm thoughts subsided, thinking cleared, psychosis resolved, and mood stabilized. Patient was able to attend both individual and group therapy sessions as well as meet with the psychiatrist daily and urged to discuss any medication or treatment issues or other concerns. The patient was educated primarily by verbal means about their diagnosis and manifestations in their life. The option for treatment including group and individual therapy programming was offered to the patient in addition to the use of medications with all their potential risks, benefits, and side effects as well as the risks of not taking medication and non-adhereance were discussed with the patient at length. The patient was given the opportunity to ask questions and was noted to participate in the treatment in the planning process. The patient felt ready and eager to be discharged from the inpatient psychiatric unit to continue on with treatment as an outpatient. The patient agreed that is they were safe for this disposition. The patient was considered to be able to participate in informed consent and decision making with respect to medical, legal, and financial issues of the time of discharge. At the time of discharge the patient adamantly denied any concerns for lethality including suicidal or homicidal thoughts ideations or plans and was future oriented toward ongoing mental health care and medical follow up. Time spent discussing smoking cessation with patient: 3 to 10 minutes Does patient wish to continue nicotine replacement upon disc: No (n/a) - Time Spent with Patient Total time spent providing and/or coordinating discharge services: 25 Less than 30 minutes Specific discharge activities: Interval history reviewed. Available labs reviewed . Psychotherapy provided. Patient had an opportunity to ask questions and address concerns. Patient was in agreement with the treatment plan. The risks benefits and side effects of medications were discussed with the patient, including alternatives and treatment. The patient was educated on the abstaining from any alcohol or illicit substances, following up with all scheduled appointments, and taking all medications as prescribed. Assessment and Plan - Patient/Caregiver Discharge Instructions Activity: resume usual activities as tolerated Diet: regular diet Additional Instructions: Continue current medications. Follow up with outpatient mental health. Encourage continued therapy in a group or individual setting. The patient was discharged to home. Your potassium remains low. Please follow-up with your primary care physician. - Follow up Plan Follow up with: NONE,PCP [Primary Care Provider] - Overall status at discharge: Stable Disposition: Home, Self-Care Quality - Multiple Antipsychotics Patient discharged on 2 or more antipsychotic medications: No Procedures - Procedures Procedures: Medication Management, Crisis Stabilization, Supportive Therapy, Group Therapy, Psychoeducational Therapy
[2018-07-02] MEDS: Potassium Chloride Elixir 20 MEQ/15 ML UDC PO SCH (08:44)
[2018-07-02 09:09] VITALS: BP 127/83
== END 2018-07-02 10:40 | disposition home or self-care (01) | DRG 885 ==
LOC: EMEROOARM 16:17 → 1ANU 18:29
PROVIDERS: ADMIT Psychiatry & Neurology Psychiatry; ATTEND Psychiatry & Neurology Psychiatry

== ENCOUNTER 2018-08-18 08:09 | Observation (INO) ==
--- NOTE | 2018-08-18 08:41 | Emergency Department Note ---
Disposition Clinical Impression: Depression, Suicidal ideation, Overdose Disposition: Admitted As Inpatient Condition: Good Forms: ED Satisfaction Letter Time of Disposition: 10:39 General Adult HPI - General Chief complaint: ED Psychiatric Symptoms Stated complaint: SI Time Seen by Provider: 08/18/18 08:15 - History of Present Illness HPI Narrative: Patient 47-year-old female presents June from a chief complaint of depression. Patient states that she has been depressed for some time had a recent admission to [facility] and this evening wanted to harm herself. The patient states that she took approximately 15 Ambien to try to kill herself. Patient states she still feels depressed feels a little sleepy but otherwise has no other complaints patient states that worsened or improved by anything - Related Data Home Medications Medication Instructions Recorded Confirmed Zolpidem [Ambien] 10 mg PO HS PRN 02/28/17 06/29/18 Omeprazole [PriLOSEC] 20 mg PO DAILY 06/29/18 06/29/18 Oxybutynin Chloride [Ditropan Xl] 10 mg PO DAILY 06/29/18 06/29/18 Potassium Chloride Elixir 20 meq PO BID 06/29/18 06/29/18 [Potassium Chloride] hydroCHLOROthiazide 25 mg PO DAILY 06/29/18 06/29/18 [Hydrochlorothiazide] Previous Rx's Medication Instructions Recorded ARIPiprazole [Abilify] 5 mg PO DAILY #30 tablet 07/02/18 BuPROPion XL (24 HR) [Wellbutrin 300 mg PO DAILY #60 tab.er.24h 07/02/18 Xl] Mirtazapine [Remeron] 7.5 mg PO HS #30 tablet 07/02/18 Sertraline [Zoloft] 200 mg PO DAILY #60 tablet 07/02/18 hydrOXYzine pamoate [HydrOXYzine 25 mg PO TID PRN #30 capsule 07/02/18 Pamoate] traZODone [TraZODone] 50 mg PO HS PRN #30 tablet 07/02/18 Allergies Allergy/AdvReac Type Severity Reaction Status Date / Time promethazine [From Phenergan] Allergy Hives Verified 08/18/18 08:12 All systems ED: reviewed and negative except as stated. Past Medical History - Past Medical History Attestation: Yes The following information was validated with the patient. Medical history: Reports: hypertension Surgical history: Reports: , cholecystectomy, other Psychiatric history: Reports: depression, previous psychiatric hospitalization [employer] history: Reports: spontaneous , bilateral tubal ligation - Social History Smoking Status: Former smoker (Reports smoking for 15 years starting at the age of 11, quitting 16 years ago. Reports smoking 1.5 packs per day) Smokeless Tobacco Status: No Alcohol use: Reports: none Drug use: Reports: none Physical Exam General: Conversant and pleasant interactive and nontoxic. Head: Normocephalic/atraumatic Eyes:PERRLA, EOMI, no conjunctivitis Nares: Without d/c. Ears: No erythema or d/c noted. Oralpharnyx: P&MMM noted, Neck: Supple, no JVD or ADMINISTRATIVE OPERATIONS COORDINATOR noted. Cardovascular: regular rate and rhythm without murmur, brisk capillary refill, no peripheral edema. Lungs: Clear to ascultation bilaterally, non-labored Abd: Soft nontender, Non Distended, no guarding, no rebound. : Defered Extremities: moves all extremities equally Neuro: AOx3, no obvious gross neuro deficit Psych: Depressed affect Derm: No rash noted Course Vital Signs Temperature 98.2 F 08/18/18 08:22 Pulse Rate 78 08/18/18 08:22 Respiratory Rate 15 08/18/18 08:22 Blood Pressure 129/82 08/18/18 08:22 O2 Sat by Pulse Oximetry 94 08/18/18 08:22 Temperature 98.2 F 08/18/18 08:22 Pulse Rate 70 08/18/18 09:20 Respiratory Rate 20 08/18/18 09:20 Blood Pressure 124/64 08/18/18 09:20 O2 Sat by Pulse Oximetry 95 08/18/18 09:20 Oxygen Delivery Oxygen Delivery Nasal Cannula Medical Decision Making - Lab Data Result diagrams: 08/18/18 08:59 08/18/18 08:59 Lab Results 08/18/18 08/18/18 Range/Units 08:59 08:59 WBC 6.4 (4.3-11.1) K/mcL RBC 4.74 (3.82-4.97) M/mcL Hgb 10.2 L (11.5-15.4) g/dL Hct 33.7 L (35.3-44.9) % MCV 71.1 L (83.0-100.0) fL MCH 21.5 L (28.0-33.3) pg MCHC 30.3 L (31.6-35.5) g/dL RDW 17.1 H (11.5-14.5) % Plt Count 264 (140-400) K/mcL MPV 9.4 (9.4-12.4) fL Immature Gran % 0.5 (0-4) % Seg Neutrophils % 77.9 % Lymphocytes % 12.6 % Monocytes % 6.9 % Eosinophils % 1.9 % Basophils % 0.2 % Neutrophils # 5.0 (1.6-8.9) K/mcL Lymphocytes # 0.8 (0.6-4.6) K/mcL Monocytes # 0.4 (0.0-1.3) K/mcL Eosinophils # 0.1 (0.0-0.6) K/mcL Basophils # 0.0 (0.0-0.2) K/mcL Sodium 135 L (136-145) mEq/L Potassium 2.5 L* (3.5-5.1) mEq/L Chloride 99 (98-107) mEq/L Carbon Dioxide 30 H (23-29) mEq/L BUN 10 (6-20) mg/dL Creatinine 0.91 (0.60-1.20) mg/dL Est GFR ( Amer) > 60 (> 60) Est GFR (Non-Af Amer) > 60 (> 60) BUN/Creatinine Ratio 11 (6-26) Glucose 162 H (70-105) mg/dL Calculated Osmolality 283 (280-300) Calcium 8.8 (8.6-10.3) mg/dL Magnesium 2.2 (1.6-2.6) mg/dL Total Bilirubin 0.3 (0.3-1.0) mg/dL Direct Bilirubin 0.0 (0.0-0.2) mg/dL Indirect Bilirubin 0.3 (0.0-1.2) mg/dL AST 12 L (13-39) Units/L ALT 11 (7-52) Units/L Alkaline Phosphatase 65 (34-104) Units/L Serum Total Protein 6.8 (6.4-8.9) g/dL Albumin 3.7 (3.5-5.7) g/dL Globulin 3.1 (2.4-3.5) g/dL Albumin/Globulin Ratio 1.2 (1.1-2.2) Salicylates < 2.5 L (15.0-30.0) mg/dL Acetaminophen < 10 L (10-20) mcg/mL Ethyl Alcohol < 10 (Less than 10) mg/dL
[2018-08-18 09:21] LABS: Basophils % 0.2 %; Eosinophils # 0.1 K/mcL (0.0-0.6); Eosinophils % 1.9 %; Hematocrit 33.7 % (35.3-44.9); Hemoglobin 10.2 g/dL (11.5-15.4); Immature Granulocytes % 0.5 % (0-4); Lymphocytes # 0.8 K/mcL (0.6-4.6); Lymphocytes % 12.6 %; Mean Corpuscular HGB Conc 30.3 g/dL (31.6-35.5); Mean Corpuscular Hemoglobin 21.5 pg (28.0-33.3); Mean Corpuscular Volume 71.1 fL (83.0-100.0); Mean Platelet Volume 9.4 fL (9.4-12.4); Monocytes # 0.4 K/mcL (0.0-1.3); Monocytes % 6.9 %; Platelet Count 264 K/mcL (140-400); Red Blood Count 4.74 M/mcL (3.82-4.97); Red Cell Distribution Width 17.1 % (11.5-14.5); Segmented Neutrophils % 77.9 %
[2018-08-18] MEDS ORDERED: Potassium Chloride Elixir 20 MEQ/15 ML UDC PO ONE (09:47)
[2018-08-18 09:48] LABS: Acetaminophen < 10 mcg/mL (10-20); Alanine Aminotransferase 11 Units/L (7-52); Albumin 3.7 g/dL (3.5-5.7); Albumin/Globulin Ratio 1.2 (1.1-2.2); Alkaline Phosphatase 65 Units/L (34-104); Aspartate Amino Transferase 12 Units/L (13-39); BUN/Creatinine Ratio 11 (6-26); Bilirubin,Indirect 0.3 mg/dL (0.0-1.2); Bilirubin,Total 0.3 mg/dL (0.3-1.0); Blood Urea Nitrogen 10 mg/dL (6-20); Calcium 8.8 mg/dL (8.6-10.3); Carbon Dioxide 30 mEq/L (23-29); Chloride 99 mEq/L (98-107); Ethanol < 10 mg/dL (Less than 10); Globulin 3.1 g/dL (2.4-3.5); Glucose 162 mg/dL (70-105); Osmolality,Calculated 283 (280-300); Potassium 2.5 mEq/L (3.5-5.1); Salicylate < 2.5 mg/dL (15.0-30.0); Sodium 135 mEq/L (136-145); Total Protein 6.8 g/dL (6.4-8.9); eGFR For Non-African Americans > 60 (> 60)
[2018-08-18 10:23] LABS: Magnesium 2.2 mg/dL (1.6-2.6)
[2018-08-18] MEDS ORDERED: Naloxone 0.4 MG/ML INJ IVP PRN (10:52)
[2018-08-18 11:18] LABS: Bilirubin,Urine Negative (Negative); Blood,Urine Negative (Negative); Clarity,Urine Clear (Clear); Color,Urine Yellow (Yellow); Glucose,Urine (UA) Normal (Normal); Ketones,Urine Negative (Negative); Leukocyte Esterase,Urine Negative (Negative); Nitrite,Urine Negative (Negative); Protein,Urine Negative (Neg-Trace); Specific Gravity,Urine 1.006 (1.010-1.025); Urobilinogen,Urine Normal (Normal)
--- NOTE | 2018-08-18 11:22 | Internal Med History&Physical ---
Date of Encounter: 08/18/18 Time of Encounter: 11:00 Internal Medicine - H&P: HPI Chief complaint: I tried to kill myself History of present illness: Ms. Salvador is a 47 year old female with pmh of morbid obesity, hypertension, major depression, suicide attempts, in the past presenting with complaints of suicidal attempt with ambien overdose. Patient is known to the psych service for major depressive episodes and suicidal ideation. She says she has been depressed and had no specific triggers, but just tried to overdose on ambien. She admits to taking 15 ambien pills and the and she was talking to her pastors on the phone and told her she had tried to hurt herself. Her comic artist's called emergency medical services to bring her to the ER. She denies any acute complaints such as fevers, chills or shortness of breath. In the ER, she is drowsy but awake. She was noted to have a potassium of 2.5 and no new EKG changes. She is being admitted for further management Past Med Surg Social Fam HX - Past Medical History Medical history: hypertension Additional medical history: low K+ Psychiatric history: depression, previous psychiatric hospitalization - Past Surgical History Surgical History: , cholecystectomy, other Additional surgical history: jaw surgery - Social History Smoking Status: Former smoker Smokeless Tobacco Status: No Alcohol use: none Drug use: none - Family History Mother Living Status: Still Living Hx Family Respiratory Disorders: Yes (COPD) Father Living Status: Still Living Hx Family Cardiac Disorders: Yes Internal Medicine - H&P: Meds Zolpidem [Ambien] 10 mg PO HS PRN 02/28/17 [History] Omeprazole [PriLOSEC] 20 mg PO DAILY 06/29/18 [History] Oxybutynin Chloride [Ditropan Xl] 10 mg PO DAILY 06/29/18 [History] Potassium Chloride Elixir [Potassium Chloride] 20 meq PO BID 06/29/18 [History] hydroCHLOROthiazide [Hydrochlorothiazide] 25 mg PO DAILY 06/29/18 [History] ARIPiprazole [Abilify] 5 mg PO DAILY #30 tablet 07/02/18 [Rx] BuPROPion XL (24 HR) [Wellbutrin Xl] 300 mg PO DAILY #60 tab.er.24h 07/02/18 [Rx] Mirtazapine [Remeron] 7.5 mg PO HS #30 tablet 07/02/18 [Rx] Sertraline [Zoloft] 200 mg PO DAILY #60 tablet 07/02/18 [Rx] hydrOXYzine pamoate [HydrOXYzine Pamoate] 25 mg PO TID PRN #30 capsule 07/02/18 [Rx] traZODone [TraZODone] 50 mg PO HS PRN #30 tablet 07/02/18 [Rx] Allergy/AdvReac Type Severity Reaction Status Date / Time promethazine [From Phenergan] Allergy Hives Verified 08/18/18 08:12 All Systems PM: A 10-system review of systems was performed and is negative for pertinent findings except as documented above in the HPI. - Constitutional Constitutional: no chills, no fever(s), no night sweats - EENT Eyes: no change in vision, no discharge, no pain, no photophobia Ears: no ear discharge, no ear pain, no tinnitus Nose, mouth and throat: no dysphagia, no nasal discharge, no neck pain, no sore throat - Cardiovascular Cardiovascular ROS IM: no chest pain, no diaphoresis, no dyspnea, no light headedness, no palpitations, no syncope - Respiratory Respiratory: no cough, no dyspnea, no wheezing, no excessive phlegm production - Gastrointestinal Gastrointestinal: no abdominal pain, no diarrhea, no hematemesis, no h ematochezia, no melena, no nausea, no vomiting - Genitourinary Genitourinary: no change in urinary stream, no dysuria, no flank pain, no hematuria - Musculoskeletal Musculoskeletal ROS IM: no numbness, no tingling - Integumentary Integumentary IM: no rash, no unusual bruising - Neurological Neurological ROS: no confusion, no convulsions, no focal weakness, no numbness, no tingling, no tremor(s) - Hematologic/Lymphatic Hematologic/Lymphatic: no easy bruising - Constitutional Vitals: Temp Pulse Resp BP Pulse Ox 98.2 F 78 15 128/88 95 08/18/18 08:22 08/18/18 10:30 08/18/18 11:08 08/18/18 11:08 08/18/18 09:20 Exam: Lethargic appearing - Head Head exam: Present: atraumatic, normocephalic - Eye Eye exam: Present: PERRL, conjuntiva pink, sclera anicteric Pupils: Present: PERRL - Neck Neck exam general surgery: Present: supple, trachea midline. Absent: lymphadenopathy - Respiratory Respiratory exam: Present: CTAB. Absent: accessory muscle use, rales, rhonchi, wheezes - Cardiovascular Cardiovascular exam: Present: RRR, +S1, +S2. Absent: diastolic murmur, gallop, rubs, systolic murmur - GI/Abdominal GI/Abdominal exam: Present: normal bowel sounds, soft, no peritoneal signs. Absent: distended, tenderness - Extremities Exam Extremities exam: Present: warm, radial pulses palpable and symmetrical. Abs ent: calf tenderness, cyanotic, pedal edema - Neurological Exam Neurological exam: Present: CN II-XII intact, oriented X3, no focal deficits. Absent: pronater drift, facial droop, speech deficit - Skin Skin exam: Present: dry, intact Internal Med - H&P Results - Labs CBC & Chem 7: 08/18/18 08:59 08/18/18 08:59 Labs: Short CBC 08/18/18 Range/Units 08:59 WBC 6.4 (4.3-11.1) K/mcL Hgb 10.2 L (11.5-15.4) g/dL Hct 33.7 L (35.3-44.9) % Plt Count 264 (140-400) K/mcL Neutrophils # 5.0 (1.6-8.9) K/mcL BMP 08/18/18 08:59 Sodium 135 L Potassium 2.5 L* Chloride 99 Carbon Dioxide 30 H BUN 10 Creatinine 0.91 Glucose 162 H Calcium 8.8 Liver Function 08/18/18 Range/Units 08:59 Total Bilirubin 0.3 (0.3-1.0) mg/dL Direct Bilirubin 0.0 (0.0-0.2) mg/dL AST 12 L (13-39) Units/L ALT 11 (7-52) Units/L Alkaline Phosphatase 65 (34-104) Units/L Albumin 3.7 (3.5-5.7) g/dL Urine 08/18/18 Range/Units 10:56 Urine Color Yellow (Yellow) Urine Clarity Clear (Clear) Urine pH 7.0 (5.0-8.0) pH Units Ur Specific [place] 1.006 L (1.010-1.025) Urine Protein Negative (Neg-Trace) mg/dL Urine Glucose (UA) Normal (Normal) mg/dL - Assessment and Plan (1) Suicidal ideation Current Visit: Yes Status: Acute Assessment and plan: Pt admits to suicidal ideation today with overodse on 15 tablets of ambien No acute EKG changes. Poison control contacted and recommend supportive care ON IV fluids, place on telemonitoring. Psychiatry consult (2) Depression Current Visit: Yes Status: Acute Assessment and plan: See #1. Hold meds until cleared by psych and poison control Qualifiers: Qualified Code(s): F32.9 - Major depressive disorder, single episode, unspecified (3) HTN (hypertension) Current Visit: Yes Status: Acute Assessment and plan: Normotensive. Monitor BP Qualifiers: Hypertension type: essential hypertension Qualified Code(s): I10 - Essential (primary) hypertension (4) Hypokalemia Current Visit: Yes Status: Acute Assessment and plan: Replaced (5) Morbid obesity with BMI of 40.0-44.9, adult Current Visit: Yes Status: Chronic Assessment and plan: Diet and exercise (6) DVT prophylaxis Current Visit: Yes Status: Acute Assessment and plan: Heparin sc - Time Spent With Patient Total time spent is greater than 50% in coordination of care (as documented) at patient's floor/unit and/or counseling patient:
[2018-08-18 11:27] LABS: Amphetamine Screen,Urine Negative ng/mL (Cutoff=1000); Barbiturate Screen,Urine Negative ng/mL (Cutoff=200); Benzodiazepines Screen,Urine Negative ng/mL (Cutoff=200); Cannabinoid Screen,Urine Negative ng/mL (Cutoff = 50); Cocaine Screen,Urine Negative ng/mL (Cutoff= 300); Opiate Screen,Urine Negative ng/mL (Cutoff=300); Phencyclidine Screen,Urine Negative ng/mL (Cutoff=25)
[2018-08-18] MEDS: Potassium Chloride Elixir 20 MEQ/15 ML UDC PO SCH ×2 (14:51→18:32)
--- NOTE | 2018-08-18 15:01 | Electrocardiograph Report ---
[address] [place], [place] [address] Test Date: 2018-08-18 Pat Name: Josey Salvador Department: [id number] Room: 3B45 Gender: F Early Childhood Coordinator: : 1970 Requested By: Peter Brunner Order Number: [id number] Reading MD: Sho Nicholson Measurements Intervals [place] Rate: 75 P: 38 [place]: 153 QRS: 6 QRSD: 108 T: 25 QT: 408 QTc: 456 Interpretive Statements Sinus rhythm Low voltage, precordial leads Minimal ST depression, anterolateral leads Electronically Signed On 08-18-2018 14:59:17 EDT by Sho Nicholson
[2018-08-18] MEDS: Nicotine 21 MG PATCH.TD24 TD SCH (18:33)
[2018-08-18] MEDS: *HR* Heparin 5,000 UNIT/ML VIAL SQ SCH (18:33)
[2018-08-18] MEDS ORDERED: Melatonin 3 MG TABLET PO PRN (22:24)
[2018-08-19 04:05] LABS: Basophils % 0.2 %; Eosinophils # 0.1 K/mcL (0.0-0.6); Eosinophils % 2.3 %; Hematocrit 34.2 % (35.3-44.9); Hemoglobin 10.3 g/dL (11.5-15.4); Immature Granulocytes % 0.3 % (0-4); Lymphocytes # 1.5 K/mcL (0.6-4.6); Mean Corpuscular HGB Conc 30.1 g/dL (31.6-35.5); Mean Corpuscular Hemoglobin 21.6 pg (28.0-33.3); Mean Corpuscular Volume 71.7 fL (83.0-100.0); Mean Platelet Volume 9.6 fL (9.4-12.4); Monocytes # 0.4 K/mcL (0.0-1.3); Monocytes % 6.5 %; Neutrophils # 3.9 K/mcL (1.6-8.9); Platelet Count 278 K/mcL (140-400); Red Blood Count 4.77 M/mcL (3.82-4.97); Red Cell Distribution Width 17.5 % (11.5-14.5); Segmented Neutrophils % 65.7 %
[2018-08-19 04:20] LABS: BUN/Creatinine Ratio 15 (6-26); Blood Urea Nitrogen 13 mg/dL (6-20); Carbon Dioxide 28 mEq/L (23-29); Chloride 102 mEq/L (98-107); Glucose 104 mg/dL (70-105); Magnesium 2.3 mg/dL (1.6-2.6); Osmolality,Calculated 290 (280-300); Phosphorous 3.8 mg/dL (2.7-4.5); Potassium 2.9 mEq/L (3.5-5.1); Sodium 140 mEq/L (136-145); eGFR For Non-African Americans > 60 (> 60)
[2018-08-19 04:24] VITALS: BP 114/71
[2018-08-19] MEDS: *HR* Heparin 5,000 UNIT/ML VIAL SQ SCH (05:21)
[2018-08-19] MEDS: Nicotine 21 MG PATCH.TD24 TD SCH (08:22)
--- NOTE | 2018-08-19 12:12 | Consult Note ---
Date of Encounter: 08/19/18 Time of Encounter: 12:03 Assessment & Recommendation (1) Major depressive disorder, recurrent severe without psychotic features Current visit: No Status: Acute Assessment & Recommendation: Client denies any further SI, intent, or plan. Looks depressed but reports she has been dealing with depression and chronic SI since she was a teenager. Has a history of suicidal gestures via overdose and has been hospitalized multiple times for similar behaviors. Denies she needs inpatient treatment at this time. Inpatient treatment can also be counterproductive for individuals with chronic SI and self harming gestures as it has the potential to reinforce these types of behaviors. This abstract writer spoke with her who agrees client is safe to come home. He is familiar with her mental health issues and reports they have been dealing with her depression for a long time and that he is comfortable with her being discharged. Client has support from a friend who can stay with her if is away from the home. Client is already well established with outpatient providers and denies wanting changes to her medication regimen at this time. At this point recommend discontinuing the sitter and having client follow up as an outpatient once medically clear. History of Present Illness Requesting Physician: Jose Kan MD Reason for consult: overdose History of present illness: Ms. Salvador is a 47 year old female who took an overdose of Ambien. Believes she took 15-16 pills. Told a friend what she was doing and the friend called the police and client was brought to the hospital. On eval today client looks depressed but she denies any further suicidal thoughts. Has a history of suici samson gestures via overdose and estimates she has been hospitalized on 1A 4-5 times for this same type of behavior. Linked with outpatient services and she already has a prescriber and therapist. Claims her medications are helpful but that she still deals with suicidal thinking and has since she was a teenager. Denies any specific trigger that made her want to take the Ambien this time. Claims she just gets overwhelmed with normal life stressors. Client denies any major physical health problems and denies AOD use. Has support from , three children, and friends. States and friend can stay with her after discharge to insure her safety. This abstract writer spoke with her and he verified this. CC: Joes Kan MD Past Med Surg Social Fam HX - Past Medical History Medical history: hypertension - Past Psychiatric History Psychiatric history: Reports: depression, prior suicide attempt, previous psychiatric hospitalization Family psychiatric history: Yes Family Psychiatric History Details: grandfather Family History of Suicide: None - Past Surgical History Surgical History: , cholecystectomy - Social History Smoking Status: Former smoker Smokeless Tobacco Status: No Alcohol use: none Drug use: none - Family History Mother Living Status: Still Living Hx Family Respiratory Disorders: Yes (COPD) Father Living Status: Still Living Hx Family Cardiac Disorders: Yes Medications & Allergies Zolpidem [Ambien] 10 mg PO HS PRN 02/28/17 [History] Oxybutynin Chloride [Ditropan Xl] 10 mg PO DAILY 06/29/18 [History] Potassium Chloride Elixir [Potassium Chloride] 20 meq PO BID 06/29/18 [History] hydroCHLOROthiazide [Hydrochlorothiazide] 25 mg PO DAILY 06/29/18 [History] ARIPiprazole [Abilify] 5 mg PO DAILY #30 tablet 07/02/18 [Rx] traZODone [TraZODone] 50 mg PO HS PRN #30 tablet 07/02/18 [Rx] Bupropion HCl [Wellbutrin Xl] 300 mg PO DAILY 08/18/18 [History] Mirtazapine 7.5 mg PO HS 08/18/18 [History] Sertraline [Zoloft] 100 mg PO BID 08/18/18 [History] clonazePAM [Clonazepam] 1 mg PO BID PRN 08/18/18 [History] Omeprazole Magnesium [Prilosec Otc] 20 mg PO BID 08/19/18 [History] Allergy/AdvReac Type Severity Reaction Status Date / Time promethazine [From Phenergan] Allergy Hives Verified 08/18/18 17:40 Review of Systems Constitutional: Denies: fever, chills, weakness, weight change Eyes: Denies: eye pain, vision change Ears, Nose, Throat: Denies: ear pain, throat pain, dental pain, hearing loss, congestion Cardiovascular: Denies: chest pain, palpitations, dyspnea on exertion Respiratory: Denies: cough, dyspnea, wheezes Gastrointestinal: Denies: abdominal pain, nausea, vomiting, diarrhea, constipation Genitourinary female: Denies: urgency, dysuria, frequency, abnormal menses, dyspareunia Musculoskeletal: Denies: joint swelling, joint pain Integumentary: Denies: rash, lesions, pruritus Neurological: Denies: headache, weakness, numbness, memory loss Endocrine: Denies: fatigue, heat or cold intolerance Hematologic/Lymphatic: Denies: easy bruising, lymphadenopathy Allergic/Immunologic: Denies: urticaria, itchy eyes Psychiatry Exam - Constitutional Vitals: Temp Pulse Resp BP Pulse Ox 98.2 F 87 14 114/71 95 08/19/18 04:23 08/19/18 04:23 08/19/18 04:23 08/19/18 04:23 08/19/18 04:23 General appearance: obese - Musculoskeletal Gait: other Station: relaxed Strength & Tone: normal for patient - Psychiatric Patient Orientation: Yes Person, Yes Time, Yes Place Level of alertness: Alert Behavior: calm, cooperative Psychomotor activity: Normal Eye Contact: Maintains Eye Contact Mood Description: Depressed Affect description: congruent with mood Speech Volume: Normal Speech pattern: normal rate, normal rhythm, normal tone, fluent, spontaneous Language & Vocabulary: consistent with education Thought Process: Linear Thought Content: No Suicidal ideation, No Homicidal ideation, No Overt delusions Perceptual Disturbances: No Auditory hallucinations, No Visual hallucinations Attention Span Ability: Capable of Focused Attention Memory Description: Grossly Intact Patient Reliability: Reliable Historian Fund of knowledge: Yes abstraction ability, Yes aware of current events Intelligence Estimate: Average Judgment: Limited Insight: Partial Results - Labs Labs: Laboratory Last Values WBC 6.0 K/mcL (4.3-11.1) 08/19/18 03:22 RBC 4.77 M/mcL (3.82-4.97) 08/19/18 03:22 Hgb 10.3 g/dL (11.5-15.4) L 08/19/18 03:22 Hct 34.2 % (35.3-44.9) L 08/19/18 03:22 MCV 71.7 fL (83.0-100.0) L 08/19/18 03:22 MCH 21.6 pg (28.0-33.3) L 08/19/18 03:22 MCHC 30.1 g/dL (31.6-35.5) L 08/19/18 03:22 RDW 17.5 % (11.5-14.5) H 08/19/18 03:22 Plt Count 278 K/mcL (140-400) 08/19/18 03:22 MPV 9.6 fL (9.4-12.4) 08/19/18 03:22 Immature Gran % 0.3 % (0-4) 08/19/18 03:22 Seg Neutrophils % 65.7 % 08/19/18 03:22 25.0 % 08/19/18 03:22 6.5 % 08/19/18 03:22 2.3 % 08/19/18 03:22 0.2 % 08/19/18 03:22 3.9 K/mcL (1.6-8.9) 08/19/18 03:22 1.5 K/mcL (0.6-4.6) 08/19/18 03:22 0.4 K/mcL (0.0-1.3) 08/19/18 03:22 0.1 K/mcL (0.0-0.6) 08/19/18 03:22 0.0 K/mcL (0.0-0.2) 08/19/18 03:22 Sodium 140 mEq/L (136-145) 08/19/18 03:22 Potassium 2.9 mEq/L (3.5-5.1) L 08/19/18 03:22 Chloride 102 mEq/L (98-107) 08/19/18 03:22 Carbon Dioxide 28 mEq/L (23-29) 08/19/18 03:22 BUN 13 mg/dL (6-20) 08/19/18 03:22 0.86 mg/dL (0.60-1.20) 08/19/18 03:22 Est GFR ( Amer) > 60 (> 60) 08/19/18 03:22 Est GFR (Non-Af Amer) > 60 (> 60) 08/19/18 03:22 15 (6-26) 08/19/18 03:22 Glucose 104 mg/dL (70-105) 08/19/18 03:22 290 (280-300) 08/19/18 03:22 Calcium 9.0 mg/dL (8.6-10.3) 08/19/18 03:22 Phosphorus 3.8 mg/dL (2.7-4.5) 08/19/18 03:22 Magnesium 2.3 mg/dL (1.6-2.6) 08/19/18 03:22 0.3 mg/dL (0.3-1.0) 08/18/18 08:59 0.0 mg/dL (0.0-0.2) 08/18/18 08:59 0.3 mg/dL (0.0-1.2) 08/18/18 08:59 AST 12 Units/L (13-39) L 08/18/18 08:59 ALT 11 Units/L (7-52) 08/18/18 08:59 65 Units/L (34-104) 08/18/18 08:59 6.8 g/dL (6.4-8.9) 08/18/18 08:59 3.7 g/dL (3.5-5.7) 08/18/18 08:59 3.1 g/dL (2.4-3.5) 08/18/18 08:59 1.2 (1.1-2.2) 08/18/18 08:59 Yellow (Yellow) 08/18/18 10:56 Clear (Clear) 08/18/18 10:56 7.0 pH Units (5.0-8.0) 08/18/18 10:56 Ur Specific [place] 1.006 (1.010-1.025) L 08/18/18 10:56 Negative mg/dL (Neg-Trace) 08/18/18 10:56 Normal mg/dL (Normal) 08/18/18 10:56 Negative mg/dL (Negative) 08/18/18 10:56 Negative (Negative) 08/18/18 10:56 Negative (Negative) 08/18/18 10:56 Negative (Negative) 08/18/18 10:56 Normal mg/dL (Normal) 08/18/18 10:56 Ur Leukocyte Esterase Negative (Negative) 08/18/18 10:56 Negative (Negative) 08/18/18 11:02 Salicylates < 2.5 mg/dL (15.0-30.0) L 08/18/18 08:59 Negative ng/mL (Zrgffx=891) 08/18/18 11:02 Acetaminophen < 10 mcg/mL (10-20) L 08/18/18 08:59 Ur Barbiturates Screen Negative ng/mL (Ebvdjg=146) 08/18/18 11:02 Ur Phencyclidine Scrn Negative ng/mL (Cutoff=25) 08/18/18 11:02 Ur Amphetamines Screen Negative ng/mL (Tajbsx=8816) 08/18/18 11:02 U Benzodiazepines Scrn Negative ng/mL (Beyaty=207) 08/18/18 11:02 Negative ng/mL (Cutoff= 300) 08/18/18 11:02 U Marijuana (THC) Screen Negative ng/mL (Cutoff = 50) 08/18/18 11:02 Ur Drug Screen Interp See Below 08/18/18 11:02 Ethyl Alcohol < 10 mg/dL (Less than 10) 08/18/18 08:59 Consult Discharge Plan - Plan Referrals: NONE,PCP [Primary Care Provider] -
--- NOTE | 2018-08-19 14:25 | Discharge Summary ---
- NOTES TO OUTPATIENT PROVIDER Notes to Outpatient Provider: f/u with PCP in one week. Please stop taking HCTZ since it is causing you severe hypokalemia Date of Encounter: 08/19/18 Time of Encounter: 14:16 - Discharge Diagnosis (1) Suicidal ideation Priority: Primary Status: Acute (2) Hypokalemia Priority: Secondary Status: Acute (3) HTN (hypertension) Priority: Secondary Status: Acute Qualifiers: Hypertension type: essential hypertension Qualified Code(s): I10 - Essential (primary) hypertension (4) Depression Priority: Secondary Status: Acute Qualifiers: Qualified Code(s): F32.9 - Major depressive disorder, single episode, unspecified (5) DVT prophylaxis Priority: Secondary Status: Acute (6) Morbid obesity with BMI of 40.0-44.9, adult Priority: Secondary Status: Chronic Hospital course: Ms. Salvador is a 47 year old female with pmh of morbid obesity, hypertension, major depression, suicide attempts, in the past presenting with complaints of suicidal attempt with ambien overdose. Patient is known to the psych service for major depressive episodes and suicidal ideation. She says she has been depressed and had no specific triggers, but just tried to overdose on ambien. She admits to taking 15 ambien pills and the and she was talking to her pastors on the phone and told her she had tried to hurt herself. Her database security administrator's called emergency medical services to bring her to the ER. Patient was admitted in the hospital and placed on playground monitor. She happened to have severe hypokalemia which slightly improved with oral supplements. No acute EKG changes noticed. Today patient is more alert, awake, O x 4. Looks depressed, however denied any suicidal ideations. Patient was evaluated by our psychiatrist, who cleared her to discharge home and recommend to follow up with outpatient psychiatrist closely. Our psychiatrist talk to patient's too, who agrees client is safe to come home. I talked to pt's at bed side, he is comfortable to take her back to home today and will f/u with her psychiatrist as an out pt. Her hypokalemia seems to be due to HCTZ, so stopped it. - Time Spent with Patient Total time spent providing and/or coordinating discharge services: - Discharge Medications Prescriptions: Continued Zolpidem [Ambien] 10 mg PO HS PRN PRN Reason: Sleep hydroCHLOROthiazide [Hydrochlorothiazide] 25 mg PO DAILY Oxybutynin Chloride [Ditropan Xl] 10 mg PO DAILY Potassium Chloride Elixir [Potassium Chloride] 20 meq PO BID traZODone [TraZODone] 50 mg PO HS PRN #30 tablet PRN Reason: Insomnia ARIPiprazole [Abilify] 5 mg PO DAILY #30 tablet Bupropion HCl [Wellbutrin Xl] 300 mg PO DAILY clonazePAM [Clonazepam] 1 mg PO BID PRN PRN Reason: Anxiety Mirtazapine 7.5 mg PO HS Sertraline [Zoloft] 100 mg PO BID Omeprazole Magnesium [Prilosec Otc] 20 mg PO BID Home Medications: Zolpidem [Ambien] 10 mg PO HS PRN 02/28/17 [History] Oxybutynin Chloride [Ditropan Xl] 10 mg PO DAILY 06/29/18 [History] Potassium Chloride Elixir [Potassium Chloride] 20 meq PO BID 06/29/18 [History] hydroCHLOROthiazide [Hydrochlorothiazide] 25 mg PO DAILY 06/29/18 [History] ARIPiprazole [Abilify] 5 mg PO DAILY #30 tablet 07/02/18 [Rx] traZODone [TraZODone] 50 mg PO HS PRN #30 tablet 07/02/18 [Rx] Bupropion HCl [Wellbutrin Xl] 300 mg PO DAILY 08/18/18 [History] Mirtazapine 7.5 mg PO HS 08/18/18 [History] Sertraline [Zoloft] 100 mg PO BID 08/18/18 [History] clonazePAM [Clonazepam] 1 mg PO BID PRN 08/18/18 [History] Omeprazole Magnesium [Prilosec Otc] 20 mg PO BID 08/19/18 [History] Allergies/Adverse Reactions: Allergy/AdvReac Type Severity Reaction Status Date / Time promethazine [From Phenergan] Allergy Hives Verified 08/18/18 17:40 Date of admission: 08/18/18 10:43 Primary care physician: PCP NONE Consults: 08/18/18 10:57 Consult to Psychiatry [CONS] Routine Consulting Provider: Psychiatry [place] Reason consult: Sitter/1:1 - Constitutional Vitals: Temp Pulse Resp BP Pulse Ox 98.2 F 87 14 114/71 95 08/19/18 04:23 08/19/18 04:23 08/19/18 04:23 08/19/18 04:23 08/19/18 04:23 General appearance: Present: A&O X 3, no acute distress, answers questions appropriately Exam: a - Head Head exam: Present: atraumatic, normal inspection - Neck Neck exam general surgery: Present: supple - Respiratory Respiratory exam: Present: decreased breath sounds. Absent: rales, respiratory distress, rhonchi, tachypnea - Cardiovascular Cardiovascular exam: Present: RRR, +S1, +S2. Absent: tachycardia - GI/Abdominal GI/Abdominal exam: Present: normal bowel sounds, soft. Absent: rebound, rigid, tenderness - Back Exam Back exam: Absent: CVA tenderness (L), CVA tenderness (R) - Neurological Exam Neurological exam: Present: alert, oriented X3 - Psychiatric Psychiatric exam: Present: depressed. Absent: anxious, manic, suicidal ideation - Patient Status Disposition: Home, Self-Care Condition: Good Overall status at discharge: patient is back to baseline - Discharge Instructions Follow Up With: NONE,PCP [Primary Care Provider] - - Diet and Activity Activity: increase activity as tolerated Diet: low salt diet
== END 2018-08-19 14:48 | disposition home or self-care (01) ==
LOC: EMEROOARM 08:09 → 3BNU 08:09 → SUATTDRO 10:43 → 3BNU 11:25
PROVIDERS: ADMIT Internal Medicine; ATTEND Family Medicine

== ENCOUNTER 2019-01-01 01:26 | Inpatient (IN) ==
[2019-01-01 01:59] LABS: Bilirubin,Urine Negative (Negative); Blood,Urine Large (Negative); Clarity,Urine Clear (Clear); Color,Urine Yellow (Yellow); Glucose,Urine (UA) Normal (Normal); Ketones,Urine Negative (Negative); Leukocyte Esterase,Urine Negative (Negative); Nitrite,Urine Negative (Negative); PH,Urine 6.5 pH Units (5.0-8.0); Protein,Urine Negative (Neg-Trace); Specific Gravity,Urine 1.009 (1.010-1.025); Urobilinogen,Urine Normal (Normal)
[2019-01-01 02:01] LABS: Bacteria,Urine None Seen per hpf (None-Few); Hyaline Casts,Urine None Seen per lpf (None-Few); RBC,Urine TNTC per hpf (0-3); Squamous Epithelial Cell,Urine Moderate per lpf (None-Few); WBC,Urine 0-3 per hpf (0-3)
[2019-01-01 02:12] LABS: Amphetamine Screen,Urine Negative ng/mL (Cutoff=1000); Barbiturate Screen,Urine Negative ng/mL (Cutoff=200); Benzodiazepines Screen,Urine Positive ng/mL (Cutoff=200); Cannabinoid Screen,Urine Negative ng/mL (Cutoff = 50); Cocaine Screen,Urine Negative ng/mL (Cutoff= 300); Opiate Screen,Urine Negative ng/mL (Cutoff=300); Phencyclidine Screen,Urine Negative ng/mL (Cutoff=25)
[2019-01-01] MEDS ORDERED: 0.9 % Sodium Chloride 1,000 ML ONE (02:14)
[2019-01-01 02:53] LABS: Basophils % 0.4 %; Eosinophils # 0.1 K/mcL (0.0-0.6); Eosinophils % 2.4 %; Hematocrit 34.1 % (35.3-44.9); Hemoglobin 10.5 g/dL (11.5-15.4); Immature Granulocytes % 0.2 % (0-4); Lymphocytes # 1.3 K/mcL (0.6-4.6); Lymphocytes % 25.6 %; Mean Corpuscular HGB Conc 30.8 g/dL (31.6-35.5); Mean Corpuscular Volume 71.3 fL (83.0-100.0); Mean Platelet Volume 9.5 fL (9.4-12.4); Monocytes # 0.5 K/mcL (0.0-1.3); Monocytes % 8.9 %; Neutrophils # 3.2 K/mcL (1.6-8.9); Platelet Count 260 K/mcL (140-400); Red Blood Count 4.78 M/mcL (3.82-4.97); Red Cell Distribution Width 16.4 % (11.5-14.5); Segmented Neutrophils % 62.5 %; White Blood Count 5.1 K/mcL (4.3-11.1)
[2019-01-01] MEDS ORDERED: 0.9 % Sodium Chloride 1,000 ML IVC ONE ×2 (03:06→06:47)
--- NOTE | 2019-01-01 03:06 | Emergency Department Note ---
Overdose - MDM Narrative Medical decision making narrative: Patient had a intentional overdose of diazepam and trazodone. This occurred approximately 1 hour prior to arrival. Poison control was contacted and recommended observation which was performed here in the department. Afterwards patient had no worsening. She remained somnolent, but every time in the room she was arousable and was able to answer questions tell me her name. She does have a history of major depressive disorder with past suicide's I do not feel she would be a safe discharge. I do feel she would benefit from a psychiatric workup. However at this point, she is unable to be medically cleared for this. Patient was discussed with attending Dr. Gonzales. Plan will be for observation until she becomes more alert for further evaluation and disposition. Patient was discussed with hospitalist who accepted patient. Laboratory Tests 01/01/19 01/01/19 01/01/19 01:46 01:46 01:48 WBC 5.1 RBC 4.78 Hgb 10.5 L Hct 34.1 L MCV 71.3 L MCH 22.0 L MCHC 30.8 L RDW 16.4 H Plt Count 260 MPV 9.5 Immature Gran % 0.2 Seg Neutrophils % 62.5 Lymphocytes % 25.6 Monocytes % 8.9 Eosinophils % 2.4 Basophils % 0.4 Neutrophils # 3.2 Lymphocytes # 1.3 Monocytes # 0.5 Eosinophils # 0.1 Basophils # 0.0 Sodium 139 Potassium 2.3 L* Chloride 97 L Carbon Dioxide 34 H BUN 8 Creatinine 0.84 Est GFR ( Amer) > 60 Est GFR (Non-Af Amer) > 60 BUN/Creatinine Ratio 10 Glucose 138 H Calculated Osmolality 289 Calcium 8.1 L Magnesium 2.1 Urine Color Yellow Urine Clarity Clear Urine pH 6.5 Ur Specific [place] 1.009 L Urine Protein Negative Urine Glucose (UA) Normal Urine Ketones Negative Urine Blood Large H Urine Nitrite Negative Urine Bilirubin Negative Urine Urobilinogen Normal Ur Leukocyte Esterase Negative Urine Microscopic RBC TNTC H Urine Microscopic WBC 0-3 Ur Squamous Epith Cells Moderate H Urine Bacteria None Seen Hyaline Casts None Seen Urine Test Salicylates < 2.5 L Urine Opiates Screen Ur Buprenorphine Scrn Acetaminophen < 10 L Ur Barbiturates Screen Ur Phencyclidine Scrn Ur Amphetamines Screen U Benzodiazepines Scrn Urine Cocaine Screen U Marijuana (THC) Screen Ur Drug Screen Interp Ethyl Alcohol < 10 01/01/19 01/01/19 01:48 01:48 WBC RBC Hgb Hct MCV MCH MCHC RDW Plt Count MPV Immature Gran % Seg Neutrophils % Lymphocytes % Monocytes % Eosinophils % Basophils % Neutrophils # Lymphocytes # Monocytes # Eosinophils # Basophils # Sodium Potassium Chloride Carbon Dioxide BUN Creatinine Est GFR ( Amer) Est GFR (Non-Af Amer) BUN/Creatinine Ratio Glucose Calculated Osmolality Calcium Magnesium Urine Color Urine Clarity Urine pH Ur Specific [place] Urine Protein Urine Glucose (UA) Urine Ketones Urine Blood Urine Nitrite Urine Bilirubin Urine Urobilinogen Ur Leukocyte Esterase Urine Microscopic RBC Urine Microscopic WBC Ur Squamous Epith Cells Urine Bacteria Hyaline Casts Urine Test Negative Salicylates Urine Opiates Screen Negative Ur Buprenorphine Scrn Negative Acetaminophen Ur Barbiturates Screen Negative Ur Phencyclidine Scrn Negative Ur Amphetamines Screen Negative U Benzodiazepines Scrn Positive H Urine Cocaine Screen Negative U Marijuana (THC) Screen Negative Ur Drug Screen Interp See Below Ethyl Alcohol - Lab Data Lab results reviewed: Yes I reviewed the patient's lab results. Result diagrams: 01/01/19 01:46 01/01/19 01:46 Lab Results 01/01/19 01/01/19 01/01/19 Range/Units 01:46 01:46 01:48 WBC 5.1 (4.3-11.1) K/mcL RBC 4.78 (3.82-4.97) M/mcL Hgb 10.5 L (11.5-15.4) g/dL Hct 34.1 L (35.3-44.9) % MCV 71.3 L (83.0-100.0) fL MCH 22.0 L (28.0-33.3) pg MCHC 30.8 L (31.6-35.5) g/dL RDW 16.4 H (11.5-14.5) % Plt Count 260 (140-400) K/mcL MPV 9.5 (9.4-12.4) fL Immature Gran % 0.2 (0-4) % Seg Neutrophils % 62.5 % Lymphocytes % 25.6 % Monocytes % 8.9 % Eosinophils % 2.4 % Basophils % 0.4 % Neutrophils # 3.2 (1.6-8.9) K/mcL Lymphocytes # 1.3 (0.6-4.6) K/mcL Monocytes # 0.5 (0.0-1.3) K/mcL Eosinophils # 0.1 (0.0-0.6) K/mcL Basophils # 0.0 (0.0-0.2) K/mcL Sodium 139 (136-145) mEq/L Potassium 2.3 L* (3.5-5.1) mEq/L Chloride 97 L (98-107) mEq/L Carbon Dioxide 34 H (23-29) mEq/L BUN 8 (6-20) mg/dL Creatinine 0.84 (0.60-1.20) mg/dL Est GFR ( Amer) > 60 (> 60) Est GFR (Non-Af Amer) > 60 (> 60) BUN/Creatinine Ratio 10 (6-26) Glucose 138 H (70-105) mg/dL Calculated Osmolality 289 (280-300) Calcium 8.1 L (8.6-10.3) mg/dL Magnesium 2.1 (1.6-2.6) mg/dL Urine Color Yellow (Yellow) Urine Clarity Clear (Clear) Urine pH 6.5 (5.0-8.0) pH Units Ur Specific [place] 1.009 L (1.010-1.025) Urine Protein Negative (Neg-Trace) mg/dL Urine Glucose (UA) Normal (Normal) mg/dL Urine Ketones Negative (Negative) mg/dL Urine Blood Large H (Negative) Urine Nitrite Negative (Negative) Urine Bilirubin Negative (Negative) Urine Urobilinogen Normal (Normal) mg/dL Ur Leukocyte Esterase Negative (Negative) Urine Microscopic RBC TNTC H (0-3) per hpf Urine Microscopic WBC 0-3 (0-3) per hpf Ur Squamous Epith Cells Moderate H (None-Few) per lpf Urine Bacteria None Seen (None-Few) per hpf Hyaline Casts None Seen (None-Few) per lpf Urine Test (Negative) Salicylates < 2.5 L (15.0-30.0) mg/dL Urine Opiates Screen (Hphnvo=331) ng/mL Ur Buprenorphine Scrn (Cutoff=5) ng/mL Acetaminophen < 10 L (10-20) mcg/mL Ur Barbiturates Screen (Fbtqpi=960) ng/mL Ur Phencyclidine Scrn (Cutoff=25) ng/mL Ur Amphetamines Screen (Nhcvgj=5590) ng/mL U Benzodiazepines Scrn (Eyfpxi=881) ng/mL Urine Cocaine Screen (Cutoff= 300) ng/mL U Marijuana (THC) Screen (Cutoff = 50) ng/mL Ur Drug Screen Interp Ethyl Alcohol < 10 (Less than 10) mg/dL 01/01/19 01/01/19 Range/Units 01:48 01:48 WBC (4.3-11.1) K/mcL RBC (3.82-4.97) M/mcL Hgb (11.5-15.4) g/dL Hct (35.3-44.9) % MCV (83.0-100.0) fL MCH (28.0-33.3) pg MCHC (31.6-35.5) g/dL RDW (11.5-14.5) % Plt Count (140-400) K/mcL MPV (9.4-12.4) fL Immature Gran % (0-4) % Seg Neutrophils % % Lymphocytes % % Monocytes % % Eosinophils % % Basophils % % Neutrophils # (1.6-8.9) K/mcL Lymphocytes # (0.6-4.6) K/mcL Monocytes # (0.0-1.3) K/mcL Eosinophils # (0.0-0.6) K/mcL Basophils # (0.0-0.2) K/mcL Sodium (136-145) mEq/L Potassium (3.5-5.1) mEq/L Chloride (98-107) mEq/L Carbon Dioxide (23-29) mEq/L BUN (6-20) mg/dL Creatinine (0.60-1.20) mg/dL Est GFR ( Amer) (> 60) Est GFR (Non-Af Amer) (> 60) BUN/Creatinine Ratio (6-26) Glucose (70-105) mg/dL Calculated Osmolality (280-300) Calcium (8.6-10.3) mg/dL Magnesium (1.6-2.6) mg/dL Urine Color (Yellow) Urine Clarity (Clear) Urine pH (5.0-8.0) pH Units Ur Specific [place] (1.010-1.025) Urine Protein (Neg-Trace) mg/dL Urine Glucose (UA) (Normal) mg/dL Urine Ketones (Negative) mg/dL Urine Blood (Negative) Urine Nitrite (Negative) Urine Bilirubin (Negative) Urine Urobilinogen (Normal) mg/dL Ur Leukocyte Esterase (Negative) Urine Microscopic RBC (0-3) per hpf Urine Microscopic WBC (0-3) per hpf Ur Squamous Epith Cells (None-Few) per lpf Urine Bacteria (None-Few) per hpf Hyaline Casts (None-Few) per lpf Urine Test Negative (Negative) Salicylates (15.0-30.0) mg/dL Urine Opiates Screen Negative (Xspyem=016) ng/mL Ur Buprenorphine Scrn Negative (Cutoff=5) ng/mL Acetaminophen (10-20) mcg/mL Ur Barbiturates Screen Negative (Zzhwku=408) ng/mL Ur Phencyclidine Scrn Negative (Cutoff=25) ng/mL Ur Amphetamines Screen Negative (Zmstsa=2751) ng/mL U Benzodiazepines Scrn Positive H (Dspooy=565) ng/mL Urine Cocaine Screen Negative (Cutoff= 300) ng/mL U Marijuana (THC) Screen Negative (Cutoff = 50) ng/mL Ur Drug Screen Interp See Below Ethyl Alcohol (Less than 10) mg/dL - Radiology Data Radiology results reviewed: Yes I reviewed the patient's radiology results. - EKG Data EKG attestation: Yes I reviewed and interpreted this EKG. EKG shows normal: sinus rhythm Rate: normal Rhythm: NSR Interpretation: no acute changes, other (Nonspecific intraventricular delay,) Overdose HPI - General Chief Complaint: ED Overdose Stated Complaint: OD Time Seen by Provider: 01/01/19 01:26 Source: patient Limitations: altered mental status Nursing Notes Reviewed: Yes Vital Signs Reviewed: Yes - History of Present Illness Pt Subjective Complaint: intentional overdose Time of Ingestion: 00:00 Intent: suicide attempt How Overdose Was Discovered: called 911 Associated symptoms: depression - Related Data Home Medications Medication Instructions Recorded Confirmed Zolpidem [Ambien] 10 mg PO HS PRN 02/28/17 08/18/18 Oxybutynin Chloride [Ditropan XL] 10 mg PO DAILY 06/29/18 08/18/18 Potassium Chloride Elixir 20 meq PO BID 06/29/18 08/18/18 [Potassium Chloride] Bupropion HCl [Wellbutrin Xl] 300 mg PO DAILY 08/18/18 08/18/18 Mirtazapine 7.5 mg PO HS 08/18/18 08/18/18 Sertraline [Zoloft] 100 mg PO BID 08/18/18 08/18/18 clonazePAM [Clonazepam] 1 mg PO BID PRN 08/18/18 08/18/18 Omeprazole Magnesium [Prilosec Otc] 20 mg PO BID 08/19/18 08/19/18 Previous Rx's Medication Instructions Recorded ARIPiprazole [Abilify] 5 mg PO DAILY #30 tablet 07/02/18 traZODone [TraZODone] 50 mg PO HS PRN #30 tablet 07/02/18 Allergies Allergy/AdvReac Type Severity Reaction Status Date / Time promethazine [From Phenergan] Allergy Hives Verified 08/18/18 17:40 All systems ED: reviewed and negative except as stated. 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 Absent: periorbital swelling, periorbital tenderness - ENT ENT exam: normal oropharynx, mucous membranes moist - Neck Neck exam: Present: full ROM. Absent: lymphadenopathy - Chest Chest inspection: Present: symmetric chest wall rise - Respiratory Respiratory exam: Present: normal lung sounds bilaterally. Absent: respiratory distress - Cardiovascular Cardiovascular exam: Present: regular rate, normal rhythm - Abdominal Exam Abdominal exam: Present: soft, Non-Tender - Extremities Exam Extremities exam: Present: full ROM, normal capillary refill - Back Exam Back exam: Present: full ROM. Absent: CVA tenderness (R), CVA tenderness (L) - Neurological Exam Neurological exam: Present: alert - Expanded Neurological Exam Patient oriented to: Present: person Cranial nerves: gag reflex (IX): Normal Coma Scale Eye Opening: To Voice Coma Scale Motor Response: Obeys Commands Coma Scale Verbal Response: Oriented Coma Scale Total: 14 - Psychiatric Psychiatric exam: Present: normal affect, depressed - Skin Skin exam: Present: warm, dry, intact, normal color. Absent: rash, cyanosis, diaphoresis Course Course Narrative: 48-year-old female presents with complaint of intentional overdose. Nursing reports onset was proximal one hour prior to arrival. Patient states taking thirty diazepam 5 mg and fifteen 100mg acetone. Nursing had reported that squad had confirmed this with family members. These are her home medications prescribed to her. Patient states that she took these as she was feeling sad. Patient denies any alcohol or other drug use. Patient describes feeling tired but otherwise denies any pain, shortness of breath. Patient has been evaluated by 1a in the Past, and prior intentional overdoses with Ambien in the past. Past history includes hypertension, depression, insomnia Patient seen and examined. she is somnolent but arousable. respirs 14. good oxygen saturation. Poison control called, they recommending observation for 4 hours after ingestion, EKG. - Reevaluation(s) Reevaluation #1: Patient discussed with attending Dr. Gonzales who also had face time with patient. Patient remained somnolent but arousable. No concern for respiratory compromise at this time. However we have we will plan for admission. Time: 03:12 Reevaluation #2: Reexamination, patient is arousable however still remained somnolent. Vital stable. He is receiving fluid and IV potassium. Patient discussed with hospitalist Dr. Peck who accepted patient. He did request a magnesium which I have ordered Time: 04:02 Vital Signs Temperature 98.1 F 01/01/19 01:29 Pulse Rate 71 01/01/19 01:29 Respiratory Rate 20 01/01/19 01:29 Blood Pressure 99/60 01/01/19 01:29 O2 Sat by Pulse Oximetry 98 01/01/19 01:29 Temperature 98.1 F 01/01/19 01:29 Pulse Rate 67 01/01/19 04:00 Respiratory Rate 14 01/01/19 04:00 Blood Pressure 107/68 01/01/19 04:00 O2 Sat by Pulse Oximetry 97 01/01/19 04:00 Oxygen Delivery Oxygen Delivery Room Air Critical Care Time Critical Care Time: Yes Total Critical Care Time: 30 Attestation: The high probability of a clinically significant, sudden or life threatening deterioration of the patient's condition required my full and direct attention, intervention and personal management. Disposition Clinical Impression: Overdose Qualifiers: Encounter type: initial encounter Injury intent: intentional self-harm Qualified Code(s): T50.902A - Poisoning by unspecified drugs, medicaments and biological substances, intentional self-harm, initial encounter Benzodiazepine overdose Qualifiers: Encounter type: initial encounter Injury intent: intentional self-harm Qualified Code(s): T42.4X2A - Poisoning by benzodiazepines, intentional self- harm, initial encounter Disposition: Admitted As Inpatient Condition: Good Time of Disposition: 04:02 Attestation Statement - Attestation Attestation: For this encounter, I have reviewed the TINNING EQUIPMENT 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 Patient took approximately 30 Valium 5 mg tablets and several trazodone tablets. Patient does admit to trying to hurt himself. Patient's respiratory status is good she does have a gag reflex. She is awake, initial examination however on repeat serial examinations she was resting and so she stated her name she easily awoke. Secondary to the patient's clinical condition and taking multiple Valium tablets along with trazodone for the patient be better served by being observed in the intensive care unit.
[2019-01-01 03:15] LABS: Acetaminophen < 10 mcg/mL (10-20); BUN/Creatinine Ratio 10 (6-26); Blood Urea Nitrogen 8 mg/dL (6-20); Calcium 8.1 mg/dL (8.6-10.3); Carbon Dioxide 34 mEq/L (23-29); Chloride 97 mEq/L (98-107); Ethanol < 10 mg/dL (Less than 10); Glucose 138 mg/dL (70-105); Osmolality,Calculated 289 (280-300); Potassium 2.3 mEq/L (3.5-5.1); Salicylate < 2.5 mg/dL (15.0-30.0); Sodium 139 mEq/L (136-145); eGFR For African Americans > 60 (> 60); eGFR For Non-African Americans > 60 (> 60)
[2019-01-01] MEDS ORDERED: 0.9 % Sodium Chloride 1,000 ML IVC SCH (03:45)
[2019-01-01] MEDS ORDERED: Potassium Chloride Elixir 20 MEQ/15 ML UDC PO ONE (04:09)
[2019-01-01] MEDS ORDERED: Ringers Solution, Lactated 1,000 ML IVC SCH (04:15)
[2019-01-01 04:16] LABS: Magnesium 2.1 mg/dL (1.6-2.6)
[2019-01-01] MEDS ORDERED: Calcium Gluconate 1gm/50mL 1 GM/50 ML BAG IVPB ONE (06:45)
--- NOTE | 2019-01-01 06:59 | Internal Med History&Physical ---
Date of Encounter: 01/01/19 Time of Encounter: 06:15 Internal Medicine - H&P: HPI Chief complaint: Overdose Admitted From: Emergency Dept Plans for Post Hospital Care: Home History of present illness: Ms. Salvador is a 48 year old female Patient presented to the emergency department after attempting suicide. She took 30 diazepam pills, and 15 100 mg trazodone pills. Her family confirmed this with the EMS team. She has been feeling depressed, and has intentionally overdosed in the past as well. Emergency department vital signs: Temperature 98.1, pulse 71, Restoril rate 20, blood pressure 99/60, O2 saturation 90% on room air CBC: White count 5.1, hemoglobin 10.5, platelets 260 BMP: Notable for a potassium of 2.3, glucose 138. Calcium 8.1 Magnesium 2.1 Urinalysis negative for infection Urine tox screen positive for benzodiazepines. Blood alcohol level undetectable EKG performed in the emergency department: Sinus rhythm, heart rate 63, QTc 611 ms. Emergency department contacted poison control, who recommended observation and an EKG. She was admitted to the hospital for further monitoring. Upon arrival to the floor, poison control contacted the floor nurse, and recommended that the patient receive IV magnesium due to prolonged QTc interval. Upon my evaluation, patient is resting in the hospital bed in no acute distress. She is asleep but easily arousable. She answers questions, follows commands. She denies chest pain, abdominal pain, nausea, vomiting, diarrhea and constipation. She denies previous history of cardiac problems. Past Med Surg Social Fam HX - Past Medical History Medical history: hypertension Additional medical history: low K+ Psychiatric history: depression, prior suicide attempt, previous psychiatric hospitalization - Past Surgical History Surgical History: cholecystectomy Additional surgical history: jaw surgery, tonsillectomy - Social History Smoking Status: Former smoker Smokeless Tobacco Status: No Alcohol use: none Drug use: none - Family History Mother Living Status: Still Living Hx Family Respiratory Disorders: Yes (COPD) Hx Family Cancer: Yes Father Living Status: Still Living Hx Family Cardiac Disorders: Yes Internal Medicine - H&P: Meds Zolpidem [Ambien] 10 mg PO HS PRN 02/28/17 [History] Oxybutynin Chloride [Ditropan XL] 10 mg PO DAILY 06/29/18 [History] Potassium Chloride Elixir [Potassium Chloride] 20 meq PO BID 06/29/18 [History] ARIPiprazole [Abilify] 5 mg PO DAILY #30 tablet 07/02/18 [Rx] traZODone [TraZODone] 50 mg PO HS PRN #30 tablet 07/02/18 [Rx] Bupropion HCl [Wellbutrin Xl] 300 mg PO DAILY 08/18/18 [History] Mirtazapine 7.5 mg PO HS 08/18/18 [History] Sertraline [Zoloft] 100 mg PO BID 08/18/18 [History] clonazePAM [Clonazepam] 1 mg PO BID PRN 08/18/18 [History] Omeprazole Magnesium [Prilosec Otc] 20 mg PO BID 08/19/18 [History] Allergy/AdvReac Type Severity Reaction Status Date / Time promethazine [From Phenergan] Allergy Hives Verified 08/18/18 17:40 All Systems PM: A 10-system review of systems was performed and is negative for pertinent findings except as documented above in the HPI. - Constitutional Vitals: Temp Pulse Resp BP Pulse Ox 98.1 F 67 14 107/68 97 01/01/19 01:29 01/01/19 04:00 01/01/19 04:00 01/01/19 04:00 01/01/19 04:00 General appearance: Present: cooperative, A&O X 3, no acute distress, answers questions appropriately Exam: - - Head Head exam: Present: normal inspection - Eye Eye exam: Present: EOMI, normal appearance - Respiratory Respiratory exam: Present: CTAB. Absent: rales, respiratory distress, rhonchi, wheezes - Cardiovascular Cardiovascular exam: Present: RRR. Absent: diastolic murmur, systolic murmur - GI/Abdominal GI/Abdominal exam: Present: normal bowel sounds, soft. Absent: tenderness - Extremities Exam Extremities exam: Present: warm, radial pulses palpable and symmetrical. Absent: calf tenderness, pedal edema, tenderness - Neurological Exam Neurological exam: Present: no focal deficits, strengths equal and symetr throu ghout. Absent: motor sensory deficit, facial droop, speech deficit - Skin Skin exam: Present: dry, normal color, warm Internal Med - H&P Results - Labs CBC & Chem 7: 01/01/19 01:46 01/01/19 01:46 Labs: Short CBC 01/01/19 Range/Units 01:46 WBC 5.1 (4.3-11.1) K/mcL Hgb 10.5 L (11.5-15.4) g/dL Hct 34.1 L (35.3-44.9) % Plt Count 260 (140-400) K/mcL Neutrophils # 3.2 (1.6-8.9) K/mcL BMP 01/01/19 01:46 Sodium 139 Potassium 2.3 L* Chloride 97 L Carbon Dioxide 34 H BUN 8 Creatinine 0.84 Glucose 138 H Calcium 8.1 L Urine 01/01/19 Range/Units 01:48 Urine Color Yellow (Yellow) Urine Clarity Clear (Clear) Urine pH 6.5 (5.0-8.0) pH Units Ur Specific [place] 1.009 L (1.010-1.025) Urine Protein Negative (Neg-Trace) mg/dL Urine Glucose (UA) Normal (Normal) mg/dL - Assessment and Plan (1) Benzodiazepine overdose Current Visit: Yes Status: Acute Assessment and plan: Intentional overdose. Poison control contacted. Patient took a total of 30 five mg pills. Cardiac telemetry IV magnesium IV calcium Continue observation Psychiatry consult Qualifiers: Encounter type: initial encounter Injury intent: intentional self-harm Qualified Code(s): T42.4X2A - Poisoning by benzodiazepines, intentional self- harm, initial encounter (2) Overdose of trazodone Current Visit: Yes Status: Acute Assessment and plan: Intentional, patient took a total of 15 100 mg pills. Poison control contacted. Cardiac monitoring Continue to observe Giving IV magnesium Giving IV calcium Checking ionized calcium level Psychiatry evaluation (3) Prolonged QT interval Current Visit: Yes Status: Acute Assessment and plan: EKG obtained in the emergency department demonstrated a QTc interval of 611. This was not addressed in the emergency department. Upon arrival to the medical floor, I ordered a stat repeat EKG: Sinus bradycardia, rate 59 QTc interval 465 ms No ischemic changes Giving IV magnesium Giving IV calcium Continue cardiac monitoring We will continue further observation (4) Depression Current Visit: No Status: Acute Assessment and plan: Patient prescribed multiple antidepressants according to her home med list, however this is not updated at this time. Psychiatry consult Qualifiers: Depression Type: major depressive disorder Major depression recurrence: recurrent Major depression episode severity: unspecified Qualified Code(s): F33.9 - Major depressive disorder, recurrent, unspecified (5) Hypokalemia Current Visit: No Status: Acute Assessment and plan: Potassium 2.3 in the emergency department, magnesium 2.1. Replete potassium Repeat BMP Continue to monitor (6) Suicidal ideation Current Visit: No Status: Acute Assessment and plan: Ponder slipped on chart. Psychiatry consult Sitter at bedside (7) DVT prophylaxis Current Visit: No Status: Acute Assessment and plan: SCDs - Time Spent With Patient Total time spent is greater than 50% in coordination of care (as documented) at patient's floor/unit and/or counseling patient:
[2019-01-01] MEDS ORDERED: Magnesium Oxide 400 MG TABLET PO SCH (09:00)
--- NOTE | 2019-01-01 09:25 | Consult Note ---
Date of Encounter: 01/01/19 Time of Encounter: 09:25 Assessment & Recommendation (1) Major depressive disorder Current visit: Yes Status: Acute Assessment & Recommendation: History of major depressive disorder, with multiple drugs on home mediation list. At this time, home medication reconciliation is pending. Recommendations: - Once medication reconciliation is complete, recommend continuing home psychiatric medications, with exception of sedating medications. Patient will require close monitoring for signs of benzodiazepine withdrawal given her long- term use of those medications. - Once medically clear, patient will require inpatient psychiatric admission for further management and stabilization of her depression. Qualifiers: Major depression recurrence: recurrent Active/Remission status: currently active Major depression episode severity: severe Psychotic features: without psychotic features Qualified Code(s): F33.2 - Major depressive disorder, recurrent severe without psychotic features (2) Suicide attempt by multiple drug overdose Current visit: Yes Status: Acute Qualifiers: Encounter type: initial encounter Qualified Code(s): T50.902A - Poisoning by unspecified drugs, medicaments and biological substances, intentional self- harm, initial encounter History of Present Illness Requesting Physician: Jose Kan MD Reason for consult: Suicide attempt via overdose History of present illness: Ms. Salvador is a 48-year old female with a history of hypertension, hypokalemia, and depression with multiple suicide attempts and previous psychiatric hospitalizations wo presented to the ED last night for evaluation after overdose on home medications of valium and trazodone. Workup in the ED was remarkable for serum potassium of 2.3 and ECG demonstrating prolonged QTc of 611ms. Patient was administered IV magnesium and calcium, as well as potassium supplementation, and was admitted to the medical floor for further management and monitoring. Psychiatry consult was placed by admitting hospitalist with regards to this suicide attempt. On evaluation today, patient is very somnolent, but does wake easily. She responds to questions appropriately, but speech is slowed and she provides short answers to questions secondary to her drowsiness. She reports that she took 20- 30 valium last night and an unspecified amount of trazodone. She states that after doing this, she spoke with her , who directed her to call the squad. She endorses a history of depression, but denies any recent stressors or significant events that would worsen her mood. She denies active SI at this time. She is established with an outpatient psychiatrist, but reports little improvement in her symptoms with medications that she has been prescribed. Her medication list shows prescriptions for trazodone 100mg, diazepam 5mg, zolpidem 10mg, sertraline 100mg, aripiprazole 10mg, and bupropion XL 300mg. CC: Jose Kan MD Past Med Surg Social Fam HX - Past Medical History Medical history: hypertension - Past Psychiatric History Psychiatric history: Reports: depression, prior suicide attempt, previous psychiatric hospitalization Family psychiatric history: Yes (grandfather) Family History of Suicide: None - Past Surgical History Surgical History: cholecystectomy - Social History Smoking Status: Former smoker Smokeless Tobacco Status: No Alcohol use: none Drug use: none - Family History Mother Living Status: Still Living Hx Family Respiratory Disorders: Yes (COPD) Hx Family Cancer: Yes Father Living Status: Still Living Hx Family Cardiac Disorders: Yes Medications & Allergies Zolpidem [Ambien] 10 mg PO HS PRN 02/28/17 [History] Oxybutynin Chloride [Ditropan XL] 10 mg PO DAILY 06/29/18 [History] Potassium Chloride Elixir [Potassium Chloride] 20 meq PO BID 06/29/18 [History] ARIPiprazole [Abilify] 5 mg PO DAILY #30 tablet 07/02/18 [Rx] traZODone [TraZODone] 50 mg PO HS PRN #30 tablet 07/02/18 [Rx] Bupropion HCl [Wellbutrin Xl] 300 mg PO DAILY 08/18/18 [History] Mirtazapine 7.5 mg PO HS 08/18/18 [History] Sertraline [Zoloft] 100 mg PO BID 08/18/18 [History] clonazePAM [Clonazepam] 1 mg PO BID PRN 08/18/18 [History] Omeprazole Magnesium [Prilosec Otc] 20 mg PO BID 08/19/18 [History] Allergy/AdvReac Type Severity Reaction Status Date / Time promethazine [From Phenergan] Allergy Hives Verified 08/18/18 17:40 Review of Systems ROS limited: due to patient condition Constitutional: Denies: fever, chills Eyes: Denies: eye pain, vision change Cardiovascular: Denies: chest pain Respiratory: Denies: dyspnea Gastrointestinal: Denies: vomiting Genitourinary female: Denies: dysuria Musculoskeletal: Denies: joint swelling, joint pain Integumentary: Denies: rash, lesions, pruritus Neurological: Denies: headache, weakness Psychiatric: Reports: depression, anxiety, suicidal ideation Endocrine: Denies: heat or cold intolerance Hematologic/Lymphatic: Denies: easy bruising, lymphadenopathy Allergic/Immunologic: Denies: urticaria, itchy eyes Psychiatry Exam - Constitutional Vitals: Temp Pulse Resp BP Pulse Ox 97.5 F L 65 16 110/67 93 01/01/19 08:27 01/01/19 08:27 01/01/19 08:27 01/01/19 08:27 01/01/19 08:27 General appearance: age & developmentally appropriate, well-groomed, well- nourished, obese - Psychiatric Patient Orientation: Yes Person, Yes Time, Yes Place Level of alertness: Sedated, Follows commands Behavior: calm, cooperative, other (very lethargic) Psychomotor activity: Slowed Eye Contact: No Eye Contact (presumed secondary to somnolence) Mood Description: Depressed Affect description: congruent with mood, flat Speech Volume: Soft/Quiet Speech pattern: appropriate, slowed, garbled, impoverished Language & Vocabulary: consistent with education Thought Content: No Suicidal ideation, No Homicidal ideation Perceptual Disturbances: No Reacting to internal stimuli, No Auditory hallucinations, No Visual hallucinations Attention Span Ability: Unable to Sustain Attention Memory Description: Grossly Intact Patient Reliability: Questionable Historian Results - Drug Levels and Toxicology Drug Levels and Toxicology: Drug Levels and Toxicity 01/01/19 01/01/19 01:46 01:48 Urine Opiates Screen Negative Acetaminophen < 10 L Ur Barbiturates Screen Negative Ur Phencyclidine Scrn Negative Ur Amphetamines Screen Negative U Benzodiazepines Scrn Positive H Urine Cocaine Screen Negative U Marijuana (THC) Screen Negative Ethyl Alcohol < 10 - Labs Labs: Laboratory Last Values WBC 5.1 K/mcL (4.3-11.1) 01/01/19 01:46 RBC 4.78 M/mcL (3.82-4.97) 01/01/19 01:46 Hgb 10.5 g/dL (11.5-15.4) L 01/01/19 01:46 Hct 34.1 % (35.3-44.9) L 01/01/19 01:46 MCV 71.3 fL (83.0-100.0) L 01/01/19 01:46 MCH 22.0 pg (28.0-33.3) L 01/01/19 01:46 MCHC 30.8 g/dL (31.6-35.5) L 01/01/19 01:46 RDW 16.4 % (11.5-14.5) H 01/01/19 01:46 Plt Count 260 K/mcL (140-400) 01/01/19 01:46 MPV 9.5 fL (9.4-12.4) 01/01/19 01:46 Immature Gran % 0.2 % (0-4) 01/01/19 01:46 Seg Neutrophils % 62.5 % 01/01/19 01:46 Lymphocytes % 25.6 % 01/01/19 01:46 Monocytes % 8.9 % 01/01/19 01:46 Eosinophils % 2.4 % 01/01/19 01:46 Basophils % 0.4 % 01/01/19 01:46 Neutrophils # 3.2 K/mcL (1.6-8.9) 01/01/19 01:46 Lymphocytes # 1.3 K/mcL (0.6-4.6) 01/01/19 01:46 Monocytes # 0.5 K/mcL (0.0-1.3) 01/01/19 01:46 Eosinophils # 0.1 K/mcL (0.0-0.6) 01/01/19 01:46 Basophils # 0.0 K/mcL (0.0-0.2) 01/01/19 01:46 Sodium 139 mEq/L (136-145) 01/01/19 01:46 Potassium 2.3 mEq/L (3.5-5.1) L* 01/01/19 01:46 Chloride 97 mEq/L (98-107) L 01/01/19 01:46 Carbon Dioxide 34 mEq/L (23-29) H 01/01/19 01:46 BUN 8 mg/dL (6-20) 01/01/19 01:46 Creatinine 0.84 mg/dL (0.60-1.20) 01/01/19 01:46 Est GFR ( Amer) > 60 (> 60) 01/01/19 01:46 Est GFR (Non-Af Amer) > 60 (> 60) 01/01/19 01:46 BUN/Creatinine Ratio 10 (6-26) 01/01/19 01:46 Glucose 138 mg/dL (70-105) H 01/01/19 01:46 Calculated Osmolality 289 (280-300) 01/01/19 01:46 Calcium 8.1 mg/dL (8.6-10.3) L 01/01/19 01:46 Magnesium 2.1 mg/dL (1.6-2.6) 01/01/19 01:46 Urine Color Yellow (Yellow) 01/01/19 01:48 Urine Clarity Clear (Clear) 01/01/19 01:48 Urine pH 6.5 pH Units (5.0-8.0) 01/01/19 01:48 Ur Specific [place] 1.009 (1.010-1.025) L 01/01/19 01:48 Urine Protein Negative mg/dL (Neg-Trace) 01/01/19 01:48 Urine Glucose (UA) Normal mg/dL (Normal) 01/01/19 01:48 Urine Ketones Negative mg/dL (Negative) 01/01/19 01:48 Urine Blood Large (Negative) H 01/01/19 01:48 Urine Nitrite Negative (Negative) 01/01/19 01:48 Urine Bilirubin Negative (Negative) 01/01/19 01:48 Urine Urobilinogen Normal mg/dL (Normal) 01/01/19 01:48 Ur Leukocyte Esterase Negative (Negative) 01/01/19 01:48 Urine Microscopic RBC TNTC per hpf (0-3) H 01/01/19 01:48 Urine Microscopic WBC 0-3 per hpf (0-3) 01/01/19 01:48 Ur Squamous Epith Cells Moderate per lpf (None-Few) H 01/01/19 01:48 Urine Bacteria None Seen per hpf (None-Few) 01/01/19 01:48 Hyaline Casts None Seen per lpf (None-Few) 01/01/19 01:48 Urine Test Negative (Negative) 01/01/19 01:48 Salicylates < 2.5 mg/dL (15.0-30.0) L 01/01/19 01:46 Urine Opiates Screen Negative ng/mL (Dbwjzw=203) 01/01/19 01:48 Ur Buprenorphine Scrn Negative ng/mL (Cutoff=5) 01/01/19 01:48 Acetaminophen < 10 mcg/mL (10-20) L 01/01/19 01:46 Ur Barbiturates Screen Negative ng/mL (Pgqhha=289) 01/01/19 01:48 Ur Phencyclidine Scrn Negative ng/mL (Cutoff=25) 01/01/19 01:48 Ur Amphetamines Screen Negative ng/mL (Bogmfq=2252) 01/01/19 01:48 U Benzodiazepines Scrn Positive ng/mL (Iotpcm=423) H 01/01/19 01:48 Urine Cocaine Screen Negative ng/mL (Cutoff= 300) 01/01/19 01:48 U Marijuana (THC) Screen Negative ng/mL (Cutoff = 50) 01/01/19 01:48 Ur Drug Screen Interp See Below 01/01/19 01:48 Ethyl Alcohol < 10 mg/dL (Less than 10) 01/01/19 01:46 Consult Discharge Plan - Plan Referrals: NONE,PCP [Primary Care Provider] - - Attending Attestation I examined this patient and my medical decision-making was reviewed with the Resident Physician. I agree with the documented findings, disposition and treatment plan as described.
--- NOTE | 2019-01-01 11:13 | Electrocardiograph Report ---
[address] [address] Test Date: 2019-01-01 Pat Name: Josey Salvador Department: EXAM6 Room: 3B37 Gender: F Online Marketing Coordinator: : 1970 Requested By: Pino Nieves Order Number: [id number] Reading MD: Salomón Jacinto Measurements Intervals [place] Rate: 63 P: -8 DC: 151 QRS: -4 QRSD: 115 T: 3 QT: 596 QTc: 611 Interpretive Statements Sinus rhythm QT PROLONGATION LATERAL ST DEPRESSSION Electronically Signed On 01-01-2019 11:11:20 EDT by Salomón Jacinto
--- NOTE | 2019-01-01 11:17 | Electrocardiograph Report ---
[place] [address] Test Date: 2019-01-01 Pat Name: Josey Salvador Department: 113 Room: 3B37 Gender: F Engineer Remote Control Diesel: : 1970 Requested By: Jose Kan Order Number: [id number] Reading MD: Salomón Jacinto Measurements Intervals [place] Rate: 63 P: 15 [place]: 169 QRS: -3 QRSD: 99 T: -7 QT: 444 QTc: 452 Interpretive Statements SINUS RHYTHM LOW QRS VOLTAGE IN PRECORDIAL LEADS NONSPECIFIC ST & T-WAVE ABNORMALITY Electronically Signed On 01-01-2019 11:15:54 EDT by Salomón Jacinto
[2019-01-01 12:00] LABS: BUN/Creatinine Ratio 9 (6-26); Blood Urea Nitrogen 7 mg/dL (6-20); Calcium 8.5 mg/dL (8.6-10.3); Carbon Dioxide 34 mEq/L (23-29); Chloride 102 mEq/L (98-107); Glucose 131 mg/dL (70-105); Osmolality,Calculated 296 (280-300); Potassium 2.9 mEq/L (3.5-5.1); Sodium 143 mEq/L (136-145); eGFR For African Americans > 60 (> 60); eGFR For Non-African Americans > 60 (> 60)
--- NOTE | 2019-01-01 14:26 | Internal Med Progress Note ---
Hospitalist Progress Note - Encounter Date of Encounter: 01/01/19 Time of Encounter: 11:00 - Subjective Interval History: Ms. Salvador is a 48 year old female with a known past medical history of hypertension, GERD, anxiety, depression and previous suicidal attempts pt presented to the emergency department after attempting suicide. She took 30 diazepam pills, and 15 100 mg trazodone pills. Her family confirmed this with the EMS team. She has been feeling depressed, and has intentionally overdosed in the past as well. She was admitted in the hospital and placed her on monitoring analyst. She is more alert, awake. O x 4. However still feels weak, lethargic and sleepy. She denied any suicidal ideation now, however still feels very depressed. - Exam Vitals: Temp Pulse Resp BP Pulse Ox 97.9 F 55 16 98/60 94 01/01/19 11:21 01/01/19 11:21 01/01/19 11:21 01/01/19 11:21 01/01/19 11:21 Exam: Gen: Alert, awake, Oriented to time,place and person Chest: Diminished breath sounds B/L, No wheezing, No crackles, No rales Heart: S1S2+ RRR No murmurs Abd: Soft, NT, BS +, No organomegaly Ext: No edema, pulses are palpable, No calf tenderness Neuro : No acute focal neuro deficits noticed Skin: No rash Psych: Depressed..Denied any suicidal ideations - Assessment and Plan (1) Benzodiazepine overdose Current Visit: Yes Status: Acute Assessment and Plan: Intentional overdose Poison control contacted by night time Cont on Cardiac telemetry Cont on continuous pulse oxy Accucheck Q6hr Daily EKG Reviewed EKG from this morning.. Improving QT interval Psychiatry consulted Patient does need to stay in the hospital more than 2 midnights due to her complex medical problems. So we will change her to full admission today. I did review my colleague Dr. Rojo's H & P including HPI, PMH, PSH, FH, SH, and ROS no changes noticed (2) Overdose of trazodone Current Visit: Yes Status: Acute Assessment and Plan: care as above (3) Suicidal ideation Current Visit: No Status: Acute Assessment and Plan: [place] slip on chart. Psychiatry consulted Sitter at bedside May need 1A placement once pt medically stable Hoping she may get better by tomorrow. (4) Prolonged QT interval Current Visit: Yes Status: Acute Assessment and Plan: EKG obtained in the emergency department demonstrated a QTc interval of 611 Repeat EKG this morning showed improved QTc Interval cont on tele (5) Depression Current Visit: No Status: Acute Assessment and Plan: Psychiatrically on board.. Appreciate recommendations (6) Hypokalemia Current Visit: No Status: Acute Assessment and Plan: Potassium 2.3 in the emergency department, magnesium 2.1. So far she received 120 MeQ K+ , however her K+ still 2.9 will cont replacing K+ Cont on tele (7) DVT prophylaxis Current Visit: No Status: Acute Assessment and Plan: SCDs - Time Spent with Patient Total time spent is greater than 50% in coordination of care (as documented) at patient's floor/unit and/or counseling patient: Internal Medicine: Result - Labs CBC & Chem 7: 01/01/19 01:46 01/01/19 11:16 Labs: Short CBC 01/01/19 Range/Units 01:46 WBC 5.1 (4.3-11.1) K/mcL Hgb 10.5 L (11.5-15.4) g/dL Hct 34.1 L (35.3-44.9) % Plt Count 260 (140-400) K/mcL Neutrophils # 3.2 (1.6-8.9) K/mcL BMP 01/01/19 01/01/19 01:46 11:16 Sodium 139 143 Potassium 2.3 L* 2.9 L D Chloride 97 L 102 Carbon Dioxide 34 H 34 H BUN 8 7 Creatinine 0.84 0.77 Glucose 138 H 131 H Calcium 8.1 L 8.5 L Urine 01/01/19 Range/Units 01:48 Urine Color Yellow (Yellow) Urine Clarity Clear (Clear) Urine pH 6.5 (5.0-8.0) pH Units Ur Specific [place] 1.009 L (1.010-1.025) Urine Protein Negative (Neg-Trace) mg/dL Urine Glucose (UA) Normal (Normal) mg/dL Consult Discharge Plan - Plan Referrals: NONE,PCP [Primary Care Provider] - (1) Benzodiazepine overdose Qualifiers: Encounter type: initial encounter Injury intent: intentional self-harm Qualified Code(s): T42.4X2A - Poisoning by benzodiazepines, intentional self- harm, initial encounter (5) Depression Qualifiers: Depression Type: major depressive disorder Major depression recurrence: recurrent Major depression episode severity: unspecified Qualified Code(s): F33.9 - Major depressive disorder, recurrent, unspecified
[2019-01-01] MEDS: *HR* Heparin 5,000 UNIT/ML VIAL SQ SCH (17:04)
[2019-01-02 02:34] LABS: BUN/Creatinine Ratio 9 (6-26); Blood Urea Nitrogen 8 mg/dL (6-20); Calcium 8.4 mg/dL (8.6-10.3); Carbon Dioxide 33 mEq/L (23-29); Chloride 104 mEq/L (98-107); Glucose 116 mg/dL (70-105); Magnesium 2.3 mg/dL (1.6-2.6); Osmolality,Calculated 295 (280-300); Potassium 2.9 mEq/L (3.5-5.1); Sodium 143 mEq/L (136-145); eGFR For African Americans > 60 (> 60); eGFR For Non-African Americans > 60 (> 60)
[2019-01-02] MEDS: *HR* Heparin 5,000 UNIT/ML VIAL SQ SCH ×2 (06:17→17:41)
[2019-01-02] MEDS ORDERED: SUMAtriptan succinate 50 MG TABLET PO PRN (07:38)
[2019-01-02] MEDS: BuPROPion XL (24 HR) 150 MG TABLET PO SCH (09:07)
[2019-01-02] MEDS: ARIPiprazole 10 MG TABLET PO SCH (09:07)
--- NOTE | 2019-01-02 09:54 | Internal Med Progress Note ---
Hospitalist Progress Note - Encounter Date of Encounter: 01/02/19 Time of Encounter: 09:50 - Subjective Interval History: Ms. Salvador is a 48 year old female with a known past medical history of hypertension, GERD, anxiety, depression and previous suicidal attempts pt presented to the emergency department after attempting suicide. She took 30 diazepam pills, and 15 100 mg trazodone pills. Her family confirmed this with the EMS team. She has been feeling depressed, and has intentionally overdosed in the past as well. She was admitted in the hospital and placed her on abrasive grader helper. She is more alert, awake. O x 4. However still feels weak, lethargic and sleepy. She denied any suicidal ideation now, however still feels very depressed. - Exam Vitals: Temp Pulse Resp BP Pulse Ox 98.0 F 60 16 115/71 96 01/02/19 08:16 01/02/19 08:16 01/02/19 08:16 01/02/19 08:16 01/02/19 08:16 Exam: Gen: Alert, awake, Oriented to time,place and person Chest: Diminished breath sounds B/L, No wheezing, No crackles, No rales Heart: S1S2+ RRR No murmurs Abd: Soft, NT, BS +, No organomegaly Ext: No edema, pulses are palpable, No calf tenderness Neuro : No acute focal neuro deficits noticed Skin: No rash Psych: Depressed..Denied any suicidal ideations - Assessment and Plan (1) Benzodiazepine overdose Current Visit: Yes Status: Acute Assessment and Plan: 01/01 Intentional overdose Poison control contacted by night time Cont on Cardiac telemetry Cont on continuous pulse oxy Accucheck Q6hr Daily EKG Reviewed EKG from this morning.. Improving QT interval Psychiatry consulted Patient does need to stay in the hospital more than 2 midnights due to her comp mumtaz medical problems. So we will change her to full admission today. I did review my colleague Dr. Rojo's H & P including HPI, PMH, PSH, FH, SH, and ROS no changes noticed. 01/02 Mood stable this morning. No suicidal thought. Home meds for depression/anxiety resume except valium and trazadone per psych recs. Repeat EKG for long QT. (2) Overdose of trazodone Current Visit: Yes Status: Acute Assessment and Plan: care as above (3) Suicidal ideation Current Visit: No Status: Acute Assessment and Plan: [place] slip on chart. Psychiatry consulted Sitter at bedside May need 1A placement once pt medically stable (4) Prolonged QT interval Current Visit: Yes Status: Acute Assessment and Plan: EKG obtained in the emergency department demonstrated a QTc interval of 611 Repeat EKG this morning showed improved QTc Interval cont on tele (5) Depression Current Visit: No Status: Acute Assessment and Plan: Psychiatrically on board. Home meds resumed except valium and trazadone. Appreciate recommendations (6) Hypokalemia Current Visit: No Status: Acute Assessment and Plan: So far she received 120 MeQ K+ , however her K+ still 2.9 will cont replacing K+ Cont on tele (7) DVT prophylaxis Current Visit: No Status: Acute Assessment and Plan: SCDs - Time Spent with Patient Total time spent is greater than 50% in coordination of care (as documented) at patient's floor/unit and/or counseling patient: Greater than 35 minutes Plan of Care Discussed with: patient Internal Medicine: Result - Labs CBC & Chem 7: 01/01/19 01:46 01/02/19 00:48 Labs: BMP 01/01/19 01/02/19 11:16 00:48 Sodium 143 143 Potassium 2.9 L D 2.9 L Chloride 102 104 Carbon Dioxide 34 H 33 H BUN 7 8 Creatinine 0.77 0.87 Glucose 131 H 116 H Calcium 8.5 L 8.4 L Consult Discharge Plan - Plan Referrals: NONE,PCP [Primary Care Provider] - (1) Benzodiazepine overdose Qualifiers: Encounter type: initial encounter Injury intent: intentional self-harm Qualified Code(s): T42.4X2A - Poisoning by benzodiazepines, intentional self- harm, initial encounter (5) Depression Qualifiers: Depression Type: major depressive disorder Major depression recurrence: recurrent Major depression episode severity: unspecified Qualified Code(s): F33.9 - Major depressive disorder, recurrent, unspecified
[2019-01-02] MEDS: Potassium Chloride Elixir 20 MEQ/15 ML UDC PO SCH ×2 (10:59→19:55)
[2019-01-02] MEDS ORDERED: Ondansetron 4 MG/2 ML VIAL IVP PRN (14:03)
--- NOTE | 2019-01-02 15:33 | Electrocardiograph Report ---
[place] [address] Test Date: 2019-01-02 Pat Name: Josey Salvador Department: 113 Room: 3B37 Gender: F Assistant Real Estate Manager: : 1970 Requested By: Tirso Jernigan Order Number: [id number] Reading MD: Ashanti Jacinto Measurements Intervals [place] Rate: 54 P: -9 [place]: 161 QRS: -5 QRSD: 78 T: -8 QT: 424 QTc: 411 Interpretive Statements SINUS BRADYCARDIA LOW QRS VOLTAGE IN PRECORDIAL LEADS [QRS DEFLECTION < 1.0 mV IN CHEST LEADS] SEPTAL MYOCARDIAL INFARCTION [40+ ms Q WAVE IN V1/V2], OF INDETERMINATE AGE Electronically Signed On 01-02-2019 15:31:11 EDT by Ashanti Jacinto
[2019-01-03 01:23] LABS: Hematocrit 34.6 % (35.3-44.9); Hemoglobin 10.3 g/dL (11.5-15.4); Mean Corpuscular HGB Conc 29.8 g/dL (31.6-35.5); Mean Corpuscular Volume 73.9 fL (83.0-100.0); Mean Platelet Volume 9.7 fL (9.4-12.4); Platelet Count 255 K/mcL (140-400); Red Blood Count 4.68 M/mcL (3.82-4.97); Red Cell Distribution Width 17.1 % (11.5-14.5)
[2019-01-03 01:46] LABS: BUN/Creatinine Ratio 13 (6-26); Blood Urea Nitrogen 11 mg/dL (6-20); Calcium 7.9 mg/dL (8.6-10.3); Carbon Dioxide 26 mEq/L (23-29); Chloride 106 mEq/L (98-107); Glucose 106 mg/dL (70-105); Osmolality,Calculated 292 (280-300); Potassium 3.1 mEq/L (3.5-5.1); Sodium 141 mEq/L (136-145); eGFR For African Americans > 60 (> 60); eGFR For Non-African Americans > 60 (> 60)
[2019-01-03] MEDS: *HR* Heparin 5,000 UNIT/ML VIAL SQ SCH ×2 (05:43→17:07)
[2019-01-03] MEDS: BuPROPion XL (24 HR) 150 MG TABLET PO SCH (08:27)
[2019-01-03] MEDS: Potassium Chloride Elixir 20 MEQ/15 ML UDC PO SCH ×2 (08:27→21:45)
[2019-01-03] MEDS: ARIPiprazole 10 MG TABLET PO SCH (08:27)
--- NOTE | 2019-01-03 10:19 | Internal Med Progress Note ---
Hospitalist Progress Note - Encounter Date of Encounter: 01/03/19 Time of Encounter: 10:15 - Subjective Interval History: Ms. Salvador is a 48 year old female with a known past medical history of hypertension, GERD, anxiety, depression and previous suicidal attempts pt presented to the emergency department after attempting suicide. She took 30 diazepam pills, and 15 100 mg trazodone pills. Her family confirmed this with the EMS team. She has been feeling depressed, and has intentionally overdosed in the past as well. She was admitted in the hospital and placed her on patient monitor. She is more alert, awake. O x 4. However still feels weak, lethargic and sleepy. She denied any suicidal ideation now. Pt seen and examined in the room. she feel much better today, sitting in the chair, sunshine outside, TV is on. She is ready for psych treatment. - Exam Vitals: Temp Pulse Resp BP Pulse Ox 97.6 F 47 16 115/83 96 01/03/19 08:15 01/03/19 08:15 01/03/19 08:15 01/03/19 08:15 01/03/19 08:15 Exam: Gen: Alert, awake, Oriented to time,place and person Chest: Diminished breath sounds B/L, No wheezing, No crackles, No rales Heart: S1S2+ RRR No murmurs Abd: Soft, NT, BS +, No organomegaly Ext: No edema, pulses are palpable, No calf tenderness Neuro : No acute focal neuro deficits noticed Skin: No rash Psych: Depressed..Denied any suicidal ideations - Assessment and Plan (1) Benzodiazepine overdose Current Visit: Yes Status: Acute Assessment and Plan: 01/01 Intentional overdose Poison control contacted by night time Cont on Cardiac telemetry Cont on continuous pulse oxy Accucheck Q6hr Daily EKG Reviewed EKG from this morning.. Improving QT interval Psychiatry consulted Patient does need to stay in the hospital more than 2 midnights due to her complex medical problems. So we will change her to full admission today. I did review my colleague Dr. Rojo's H & P including HPI, PMH, PSH, FH, SH, and ROS no changes noticed. 01/02 Mood stable this morning. No suicidal thought. Home meds for depression/anxiety resumed except valium and trazadone per psych recs. Repeat EKG QTc 411. 01/03 Mood stable, no suicidal thought. Home meds resumed except Valium and trazadone. K+ 3.1 today, continue replacement. Once K+ was normalized, will transfer to 1A. (2) Overdose of trazodone Current Visit: Yes Status: Acute Assessment and Plan: care as above (3) Suicidal ideation Current Visit: No Status: Acute Assessment and Plan: [place] slip on chart. Psychiatry consulted Sitter at bedside May need 1A placement once pt medically stable (4) Prolonged QT interval Current Visit: Yes Status: Acute Assessment and Plan: EKG obtained in the emergency department demonstrated a QTc interval of 611 Repeat EKG 01/02 QTc 411. cont on tele (5) Depression Current Visit: No Status: Acute Assessment and Plan: Psychiatrically on board. Home meds resumed except valium and trazadone. Appreciate recommendations. Mood stable and improving. (6) Hypokalemia Current Visit: No Status: Acute Assessment and Plan: K+ 3.1 today will cont replacing K+ Cont on tele (7) DVT prophylaxis Current Visit: No Status: Acute Assessment and Plan: SCDs - Time Spent with Patient Total time spent is greater than 50% in coordination of care (as documented) at patient's floor/unit and/or counseling patient: Greater than 35 minutes Plan of Care Discussed with: patient Internal Medicine: Result - Labs CBC & Chem 7: 01/03/19 00:56 01/03/19 00:56 Labs: Short CBC 01/03/19 Range/Units 00:56 WBC 5.0 (4.3-11.1) K/mcL Hgb 10.3 L (11.5-15.4) g/dL Hct 34.6 L (35.3-44.9) % Plt Count 255 (140-400) K/mcL BMP 01/03/19 00:56 Sodium 141 Potassium 3.1 L Chloride 106 Carbon Dioxide 26 BUN 11 Creatinine 0.82 Glucose 106 H Calcium 7.9 L Consult Discharge Plan - Plan Referrals: NONE,PCP [Primary Care Provider] - (1) Benzodiazepine overdose Qualifiers: Encounter type: initial encounter Injury intent: intentional self-harm Qualified Code(s): T42.4X2A - Poisoning by benzodiazepines, intentional self- harm, initial encounter (5) Depression Qualifiers: Depression Type: major depressive disorder Major depression recurrence: recurrent Major depression episode severity: unspecified Qualified Code(s): F33.9 - Major depressive disorder, recurrent, unspecified
[2019-01-04 02:38] LABS: Hematocrit 35.4 % (35.3-44.9); Hemoglobin 10.3 g/dL (11.5-15.4); Mean Corpuscular HGB Conc 29.1 g/dL (31.6-35.5); Mean Corpuscular Hemoglobin 21.4 pg (28.0-33.3); Mean Corpuscular Volume 73.4 fL (83.0-100.0); Mean Platelet Volume 10.2 fL (9.4-12.4); Platelet Count 272 K/mcL (140-400); Red Blood Count 4.82 M/mcL (3.82-4.97); Red Cell Distribution Width 17.1 % (11.5-14.5); White Blood Count 4.9 K/mcL (4.3-11.1)
[2019-01-04 02:53] LABS: BUN/Creatinine Ratio 13 (6-26); Blood Urea Nitrogen 12 mg/dL (6-20); Calcium 8.1 mg/dL (8.6-10.3); Carbon Dioxide 27 mEq/L (23-29); Chloride 106 mEq/L (98-107); Glucose 103 mg/dL (70-105); Osmolality,Calculated 294 (280-300); Potassium 3.2 mEq/L (3.5-5.1); Sodium 142 mEq/L (136-145); eGFR For African Americans > 60 (> 60); eGFR For Non-African Americans > 60 (> 60)
[2019-01-04] MEDS: *HR* Heparin 5,000 UNIT/ML VIAL SQ SCH ×2 (05:57→16:46)
[2019-01-04 06:19] LABS: VBG Ionized Calcium 0.97 mmol/L (1.15-1.35)
[2019-01-04] MEDS ORDERED: Calcium Gluconate 2,000 MG in 0.9 % Sodium Chloride 100 ML IVPB ONE (07:35)
[2019-01-04] MEDS ORDERED: Potassium Chloride 40 MEQ, Lidocaine 1% 2 ML in 0.9 % Sodium Chloride 500 ML IVPB ONE (07:37)
--- NOTE | 2019-01-04 09:22 | Internal Med Progress Note ---
Hospitalist Progress Note - Encounter Date of Encounter: 01/04/19 Time of Encounter: 09: - Subjective Interval History: Ms. Salvador is a 48 year old female with a known past medical history of hypertension, GERD, anxiety, depression and previous suicidal attempts pt presented to the emergency department after attempting suicide. She took 30 diazepam pills, and 15 100 mg trazodone pills. Her family confirmed this with the EMS team. She has been feeling depressed, and has intentionally overdosed in the past as well. She was admitted in the hospital and placed her on supervisor lump room. She is more alert, awake. O x 4. However still feels weak, lethargic and sleepy. She denied any suicidal ideation now. Pt seen and examined in the room. she feel much better today, sitting in the chair. She is ready for psych treatment. - Exam Vitals: Temp Pulse Resp BP Pulse Ox 98.1 F 56 15 116/72 98 01/04/19 07:38 01/04/19 07:38 01/04/19 07:38 01/04/19 07:38 01/04/19 07:38 Exam: Gen: Alert, awake, Oriented to time,place and person Chest: Diminished breath sounds B/L, No wheezing, No crackles, No rales Heart: S1S2+ RRR No murmurs Abd: Soft, NT, BS +, No organomegaly Ext: No edema, pulses are palpable, No calf tenderness Neuro : No acute focal neuro deficits noticed Skin: No rash Psych: Depressed..Denied any suicidal ideations - Assessment and Plan (1) Benzodiazepine overdose Current Visit: Yes Status: Acute Assessment and Plan: 01/01 Intentional overdose Poison control contacted by night time Cont on Cardiac telemetry Cont on continuous pulse oxy Accucheck Q6hr Daily EKG Reviewed EKG from this morning.. Improving QT interval Psychiatry consulted Patient does need to stay in the hospital more than 2 midnights due to her complex medical problems. So we will change her to full admission today. I did review my colleague Dr. Rojo's H & P including HPI, PMH, PSH, FH, SH, and ROS no changes noticed. 01/02 Mood stable this morning. No suicidal thought. Home meds for depression/anxiety resumed except valium and trazadone per psych recs. Repeat EKG QTc 411. 01/03 Mood stable, no suicidal thought. Home meds resumed except Valium and trazadone. K+ 3.1 today, continue replacement. Once K+ was normalized, will transfer to . 01/04 K+ 3.2, Ca++ 8.1, ionized ca 0.97, lower than normal. IV K+ and Ca replaced. Repeat BMP in am. ready to transfer to in am. Mood stable, VSS, No respiratory distress. (2) Overdose of trazodone Current Visit: Yes Status: Acute Assessment and Plan: care as above (3) Suicidal ideation Current Visit: No Status: Acute Assessment and Plan: [place] slip on chart. Psychiatry consulted Sitter at bedside May need 1A placement once pt medically stable (4) Prolonged QT interval Current Visit: Yes Status: Resolved Assessment and Plan: EKG obtained in the emergency department demonstrated a QTc interval of 611 Repeat EKG 01/02 QTc 411. cont on tele (5) Depression Current Visit: No Status: Acute Assessment and Plan: Psychiatrically on board. Home meds resumed except valium and trazadone. Appreciate recommendations. Mood stable and improving. (6) Hypokalemia Current Visit: No Status: Acute Assessment and Plan: K+ 3.2 today cont replacing K+ Cont on tele (7) DVT prophylaxis Current Visit: No Status: Acute Assessment and Plan: SCDs - Time Spent with Patient Total time spent is greater than 50% in coordination of care (as documented) at patient's floor/unit and/or counseling patient: Greater than 35 minutes Plan of Care Discussed with: patient Internal Medicine: Result - Labs CBC & Chem 7: 01/04/19 01:38 01/04/19 01:38 Labs: Short CBC 01/04/19 Range/Units 01:38 WBC 4.9 (4.3-11.1) K/mcL Hgb 10.3 L (11.5-15.4) g/dL Hct 35.4 (35.3-44.9) % Plt Count 272 (140-400) K/mcL BMP 01/04/19 01:38 Sodium 142 Potassium 3.2 L Chloride 106 Carbon Dioxide 27 BUN 12 Creatinine 0.94 Glucose 103 Calcium 8.1 L Consult Discharge Plan - Plan Referrals: NONE,PCP [Primary Care Provider] - (1) Benzodiazepine overdose Qualifiers: Encounter type: initial encounter Injury intent: intentional self-harm Qualified Code(s): T42.4X2A - Poisoning by benzodiazepines, intentional self- harm, initial encounter (5) Depression Qualifiers: Depression Type: major depressive disorder Major depression recurrence: recurrent Major depression episode severity: unspecified Qualified Code(s): F33.9 - Major depressive disorder, recurrent, unspecified
[2019-01-04] MEDS: Potassium Chloride Elixir 20 MEQ/15 ML UDC PO SCH ×2 (09:39→21:45)
[2019-01-04] MEDS: BuPROPion XL (24 HR) 150 MG TABLET PO SCH (09:39)
[2019-01-04] MEDS: ARIPiprazole 10 MG TABLET PO SCH (09:39)
[2019-01-05 05:40] LABS: BUN/Creatinine Ratio 13 (6-26); Blood Urea Nitrogen 11 mg/dL (6-20); Calcium 8.2 mg/dL (8.6-10.3); Carbon Dioxide 26 mEq/L (23-29); Chloride 107 mEq/L (98-107); Glucose 122 mg/dL (70-105); Osmolality,Calculated 291 (280-300); Potassium 3.5 mEq/L (3.5-5.1); Sodium 140 mEq/L (136-145); eGFR For African Americans > 60 (> 60); eGFR For Non-African Americans > 60 (> 60)
[2019-01-05] MEDS: *HR* Heparin 5,000 UNIT/ML VIAL SQ SCH (05:55)
[2019-01-05] MEDS: BuPROPion XL (24 HR) 150 MG TABLET PO SCH (08:09)
[2019-01-05] MEDS: ARIPiprazole 10 MG TABLET PO SCH (08:09)
[2019-01-05] MEDS: Potassium Chloride Elixir 20 MEQ/15 ML UDC PO SCH (08:10)
--- NOTE | 2019-01-05 09:42 | Discharge Summary ---
- NOTES TO OUTPATIENT PROVIDER Notes to Outpatient Provider: f/u with psychiatry as needed Date of Encounter: 01/05/19 Time of Encounter: 09:40 - Discharge Diagnosis (1) Benzodiazepine overdose Priority: Primary Status: Acute Qualifiers: Encounter type: initial encounter Injury intent: intentional self-harm Qualified Code(s): T42.4X2A - Poisoning by benzodiazepines, intentional self- harm, initial encounter (2) Overdose of trazodone Priority: Primary Status: Acute (3) Suicidal ideation Priority: Primary Status: Acute (4) Prolonged QT interval Priority: Primary Status: Resolved (5) Depression Priority: Primary Status: Acute Qualifiers: Depression Type: major depressive disorder Major depression recurrence: recurrent Major depression episode severity: unspecified Qualified Code(s): F33.9 - Major depressive disorder, recurrent, unspecified (6) Hypokalemia Priority: Primary Status: Acute (7) DVT prophylaxis Priority: Primary Status: Acute Hospital course: Ms. Salvador is a 48 year old female presented to the emergency department after attempting suicide. She took 30 diazepam pills, and 15 pills of 100 mg trazodone pills. Her family confirmed this with the EMS team. She has been feeling depressed, and has intentionally overdosed in the past as well. Emergency department vital signs: Temperature 98.1, pulse 71, Restoril rate 20, blood pressure 99/60, O2 saturation 90% on room air CBC: White count 5.1, hemoglobin 10.5, platelets 260 BMP: Notable for a potassium of 2.3, glucose 138. Calcium 8.1 Magnesium 2.1 Urinalysis negative for infection Urine tox screen positive for benzodiazepines. Blood alcohol level undetectable EKG performed in the emergency department: Sinus rhythm, heart rate 63, QTc 611 ms. Emergency department contacted poison control, who recommended observation and an EKG. She was admitted to the hospital for further monitoring. Upon arrival to the floor, poison control contacted the floor nurse, and recommended that the patient receive IV magnesium due to prolonged QTc interval. Pt received IVF and electrolytes supplement during the subsequent hospitalization. Bedside sitter was ordered, she was pink slipped. Psychiatry was consulted and home meds for depression other than valium and trazadone were resumed. Her mood was gradually stabilized and ideation for suicide was resolved. EKG performed on 01/02 showed resolution of long QTc (QTc 411). Her K+ remained low even with aggressive replacement, required 2 more days of aggressive supplementation. On the discharge day, K+3.5, K+ supplement was continued. Psych recommended inpatient psych treatment, she will be transferred to in stable condition. Discharge discussed with: patient Time spent discussing smoking cessation with patient: more than 10 minutes - Time Spent with Patient Total time spent providing and/or coordinating discharge services: Time spent: Greater than 30 minutes - Discharge Medications Prescriptions: Continued Zolpidem [Ambien] 10 mg PO HS Oxybutynin Chloride [Ditropan XL] 10 mg PO DAILY Potassium Chloride Elixir [Potassium Chloride] 20 meq PO BID Bupropion HCl [Wellbutrin Xl] 300 mg PO QAM Sertraline [Zoloft] 100 mg PO QAM Omeprazole Magnesium [Prilosec Otc] 20 mg PO BID Meloxicam 15 mg PO DAILY PRN PRN Reason: knee pain hydroCHLOROthiazide [Hydrochlorothiazide] 25 mg PO DAILY ARIPiprazole [Abilify] 10 mg PO QAM Trazodone HCl 200 mg PO HS PRN PRN Reason: Sleep SUMAtriptan Succinate [Imitrex] 100 mg PO AD PRN PRN Reason: Migraine Headache diazePAM [Valium] 10 mg PO HS Albuterol Sulfate [Ventolin Hfa] 2 puff IH HS PRN PRN Reason: sob Home Medications: Zolpidem [Ambien] 10 mg PO HS 02/28/17 [History] Oxybutynin Chloride [Ditropan XL] 10 mg PO DAILY 06/29/18 [History] Potassium Chloride Elixir [Potassium Chloride] 20 meq PO BID 06/29/18 [History] Bupropion HCl [Wellbutrin Xl] 300 mg PO QAM 08/18/18 [History] Sertraline [Zoloft] 100 mg PO QAM 08/18/18 [History] Omeprazole Magnesium [Prilosec Otc] 20 mg PO BID 08/19/18 [History] ARIPiprazole [Abilify] 10 mg PO QAM 01/01/19 [History] Albuterol Sulfate [Ventolin Hfa] 2 puff IH HS PRN 01/01/19 [History] Meloxicam 15 mg PO DAILY PRN 01/01/19 [History] SUMAtriptan Succinate [Imitrex] 100 mg PO AD PRN 01/01/19 [History] Trazodone HCl 200 mg PO HS PRN 01/01/19 [History] diazePAM [Valium] 10 mg PO HS 01/01/19 [History] hydroCHLOROthiazide [Hydrochlorothiazide] 25 mg PO DAILY 01/01/19 [History] Allergies/Adverse Reactions: Allergy/AdvReac Type Severity Reaction Status Date / Time promethazine [From Phenergan] Allergy Hives Verified 08/18/18 17:40 Date of admission: 01/01/19 09:39 Primary care physician: PCP NONE Consults: 01/01/19 06:49 Consult to Psychiatry [CONS] Routine Consulting Provider: Psychiatry [place] Reason consult: [place] slip on chart [place] Slip initiated date and time: [id number]/31/[id number] Call Completed: No Anticipated date of discharge: 01/05/19 - Constitutional Vitals: Temp Pulse Resp BP Pulse Ox 97.9 F 63 16 124/79 96 01/05/19 06:50 01/05/19 06:50 01/05/19 06:50 01/05/19 06:50 01/05/19 06:50 General appearance: Present: cooperative, A&O X 3, no acute distress, answers questions appropriately Exam: Gen: Alert, awake, Oriented to time,place and person Chest: Diminished breath sounds B/L, No wheezing, No crackles, No rales Heart: S1S2+ RRR No murmurs Abd: Soft, NT, BS +, No organomegaly Ext: No edema, pulses are palpable, No calf tenderness Neuro : No acute focal neuro deficits noticed Skin: No rash Psych: Depressed..Denied any suicidal ideations - Patient Status Disposition: Transfer Psychiatric Hosp Condition: Good Functional capacity at discharge: independent ambulation Overall status at discharge: patient is progressing back to baseline - Discharge Instructions Follow Up With: NONE,PCP [Primary Care Provider] - - Diet and Activity Activity: increase activity as tolerated Diet: advance to your usual diet
[2019-01-05 10:49] VITALS: BP 108/73
== END 2019-01-05 11:41 | DRG 918 ==
LOC: EMEROOARM 01:26 → 3BNU 01:26 → SUATTDRO 04:18 → 3BNU 05:03
PROVIDERS: ADMIT Internal Medicine; ATTEND Family Medicine

== ENCOUNTER 2019-01-05 11:26 | Inpatient (IN) ==
[2019-01-05] MEDS ORDERED: Mag Hydrox/Al Hydrox/Simeth 30 ML UDC PO PRN (11:51)
[2019-01-05] MEDS ORDERED: *HR* LORazepam 1 MG TABLET PO PRN (11:51)
[2019-01-05] MEDS ORDERED: Haloperidol Lactate 5 MG/ML VIAL IM PRN (11:51)
[2019-01-05] MEDS ORDERED: MOM Conc 10 ML UD.LIQ PO PRN (11:51)
[2019-01-05] MEDS ORDERED: Ibuprofen 400 MG TABLET PO PRN (11:51)
[2019-01-05] MEDS ORDERED: *HR* LORazepam 2 MG/ML VIAL IM PRN (11:51)
[2019-01-05] MEDS ORDERED: traZODone 50 MG TABLET PO PRN ×2 (11:51→15:18)
[2019-01-05] MEDS ORDERED: SUMAtriptan succinate 50 MG TABLET PO PRN (15:18)
[2019-01-05] MEDS ORDERED: diazePAM 5 MG TABLET PO SCH (21:00)
[2019-01-05] MEDS: Potassium Chloride Elixir 20 MEQ/15 ML UDC PO SCH (21:29)
[2019-01-06] MEDS ORDERED: ARIPiprazole 10 MG TABLET PO SCH (09:00)
[2019-01-06] MEDS: hydroCHLOROthiazide 25 MG TABLET PO SCH (09:56)
[2019-01-06] MEDS: BuPROPion XL (24 HR) 150 MG TABLET PO SCH (09:56)
[2019-01-06] MEDS: Potassium Chloride Elixir 20 MEQ/15 ML UDC PO SCH ×2 (09:57→21:25)
--- NOTE | 2019-01-06 12:18 | Psychiatry History & Physical ---
Date of Encounter: 01/06/19 Time of Encounter: 10:25 History of Present Illness Medicare Admission Attestation: For traditional Medicare patients the provided hospital inpatient services are reasonable and necessary and in the case of services not specified as inpatient-only under 42 CFR 419.22 (n), that they are appropriately provided as inpatient services in accordance 42 CFR 412.3. For Critical Access Hospital the patient may reasonably be expected to be discharged or transferred to a hospital within 96 hours after admission to the Critical Access Hospital. History of Present Illness: Ms. Salvador is a 48 year old female Past Med Surg Social Fam HX - Past Medical History Medical history: hypertension - Past Surgical History Surgical History: cholecystectomy - Social History Smoking Status: Former smoker Smokeless Tobacco Status: No Alcohol use: none Drug use: none - Family History Mother Name: Zulma damon Age: 72 Family Member Ethnicity: Non- Living Status: Still Living Hx Family Respiratory Disorders: Yes (COPD) Hx Family Cancer: Yes (stage 4 carcinoma) Hx Family GI Disorders: No Hx Family Genitourinary Disorders: No Hx Family Endocrine Disorder: No Hx Family Musculoskeletal Disorders: No Hx Family Neuromuscular Disorders: No Hx Family Neurologic Disorders: No Hx Family HEENT Disorders: No Hx Family Autoimmune Disorders: No Hx Family Reproductive Disorders: No Hx Family Psychosocial Disorders: No Hx Family Medical Disorders: No Father Living Status: Still Living Hx Family Cardiac Disorders: Yes Medications & Allergies Zolpidem [Ambien] 10 mg PO HS 02/28/17 [History] Oxybutynin Chloride [Ditropan XL] 10 mg PO DAILY 06/29/18 [History] Potassium Chloride Elixir [Potassium Chloride] 20 meq PO BID 06/29/18 [History] Bupropion HCl [Wellbutrin Xl] 300 mg PO QAM 08/18/18 [History] Sertraline [Zoloft] 100 mg PO QAM 08/18/18 [History] Omeprazole Magnesium [Prilosec Otc] 20 mg PO BID 08/19/18 [History] ARIPiprazole [Abilify] 10 mg PO QAM 01/01/19 [History] Albuterol Sulfate [Ventolin Hfa] 2 puff IH HS PRN 01/01/19 [History] Meloxicam 15 mg PO DAILY PRN 01/01/19 [History] SUMAtriptan Succinate [Imitrex] 100 mg PO AD PRN 01/01/19 [History] Trazodone HCl 200 mg PO HS PRN 01/01/19 [History] diazePAM [Valium] 10 mg PO HS 01/01/19 [History] hydroCHLOROthiazide [Hydrochlorothiazide] 25 mg PO DAILY 01/01/19 [History] Allergy/AdvReac Type Severity Reaction Status Date / Time promethazine [From Phenergan] Allergy Hives Verified 08/18/18 17:40 Exam - Constitutional Vitals: Temp Pulse Resp BP Pulse Ox 97.6 F 72 18 115/70 94 01/06/19 09:00 01/06/19 09:00 01/06/19 09:00 01/06/19 09:00 01/06/19 09:00 Assessment and Plan (1) Major depressive disorder Current visit: No Status: Acute Plan: Admit inpatient for safety and stabilization, Close observation, Suicide Precautions per unit protocol, Encourage participation in unit milieu, Monitor sleep, Monitor appetite Estimated Length of Stay (Days): 7 Qualifiers: Major depression recurrence: recurrent Active/Remission status: currently active Major depression episode severity: severe Psychotic features: without psychotic features Qualified Code(s): F33.2 - Major depressive disorder, recurrent severe without psychotic features
[2019-01-07] MEDS: ARIPiprazole 5 MG TABLET PO SCH (09:18)
[2019-01-07] MEDS: hydroCHLOROthiazide 25 MG TABLET PO SCH (09:18)
[2019-01-07] MEDS: BuPROPion XL (24 HR) 150 MG TABLET PO SCH (09:19)
[2019-01-07] MEDS: Potassium Chloride Elixir 20 MEQ/15 ML UDC PO SCH ×2 (09:20→21:20)
--- NOTE | 2019-01-07 10:18 | Psychiatry Progress Note ---
Date of Encounter: 01/07/19 Time of Encounter: 07:30 Subjective Interval history: Patient continues to appear very dysphoric. She reports sad mood, decreased interest, feelings of guilt and worthlessness, hopelessness. She continues to have suicidal ideations. She wishes her attempt had worked. She said her is one of her main stressors because he is always grumpy with her and the children. She is feeling a little bit better with the decrease in Abilify in terms of her akathisia having decreased. She is not attending groups and needs encouragement to eat. Review of Systems Psychiatric: Reports: depression, anxiety, abnormal sleep pattern, suicidal ideation, anhedonia, hopelessness. Denies: homicidal ideation, auditory hallucinations, visual hallucinations Results - Vital Signs Vital Signs: Temp Pulse Resp BP Pulse Ox 97.1 F L 90 16 126/70 94 01/07/19 09:00 01/07/19 09:00 01/07/19 09:00 01/07/19 09:00 01/07/19 09:00 Assessment and Plan (1) Major depressive disorder, recurrent severe without psychotic features Current visit: No Status: Acute Plan: Continue hospitalization, Close observation, Suicide Precautions per unit protocol, Encourage participation in unit milieu, Group Therapy, Monitor sleep, Monitor appetite Additional Plan: Increase Wellbutrin to 450 mg by mouth every morning to further address her depression and lack of motivation. Encourage group attendance. Therapists work on linkage. Risks, benefits, side effects, alternatives discussed w/pt: Yes Patient agreeable to treatment: Yes Consult Discharge Plan - Plan Referrals: NONE,PCP [Primary Care Provider] - Psychiatry Exam - Constitutional Vitals: Temp Pulse Resp BP Pulse Ox 97.1 F L 90 16 126/70 94 01/07/19 09:00 01/07/19 09:00 01/07/19 09:00 01/07/19 09:00 01/07/19 09:00 General appearance: disheveled, obese - Musculoskeletal Gait: slow Station: stooped Strength & Tone: mild weakness - Psychiatric Patient Orientation: Yes Person, Yes Time, Yes Place, Yes Circumstance Level of alertness: Alert Behavior: tearful, distractible, withdrawn Psychomotor activity: Slowed Eye Contact: Minimal Contact Mood Description: Depressed Patient description of mood: Sad Affect description: flat Speech Volume: Soft/Quiet Speech pattern: slowed Language & Vocabulary: consistent with education Thought Process: Linear, Goal Oriented Thought Content: Yes Suicidal ideation Perceptual Disturbances: No Auditory hallucinations, No Visual hallucinations Attention Span Ability: Capable of Focused Attention Memory Description: Grossly Intact Patient Reliability: Reliable Historian Fund of knowledge: Yes abstraction ability Intelligence Estimate: Average Judgment: Poor Insight: None
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
[2019-01-07] MEDS ORDERED: BuPROPion XL (24 HR) 150 MG TABLET PO ONE (11:00)
[2019-01-07] MEDS: traZODone 50 MG TABLET PO SCH (21:19)
[2019-01-08] MEDS: BuPROPion XL (24 HR) 150 MG TABLET PO SCH (08:14)
[2019-01-08] MEDS: ARIPiprazole 5 MG TABLET PO SCH (08:16)
[2019-01-08] MEDS: Potassium Chloride Elixir 20 MEQ/15 ML UDC PO SCH ×2 (08:16→21:26)
[2019-01-08] MEDS: hydroCHLOROthiazide 25 MG TABLET PO SCH (08:16)
--- NOTE | 2019-01-08 10:48 | Psychiatry Progress Note ---
Date of Encounter: 01/08/19 Time of Encounter: 08:30 Subjective Interval history: Denied suicidal ideations. Did a little better yesterday until her visited then seemed down again. A little more hopeful. No auditory hallucinations. Doing groups. Review of Systems Psychiatric: Reports: depression, anxiety, abnormal sleep pattern. Denies: homicidal ideation, auditory hallucinations, visual hallucinations Results - Vital Signs Vital Signs: Temp Pulse Resp BP Pulse Ox 97 F L 90 16 100/70 94 01/08/19 09:00 01/08/19 09:00 01/08/19 09:00 01/08/19 09:00 01/08/19 09:00 Assessment and Plan (1) Major depressive disorder, recurrent severe without psychotic features Current visit: No Status: Acute Plan: Continue hospitalization, Close observation, Suicide Precautions per unit protocol, Encourage participation in unit milieu, Group Therapy, Monitor sleep, Monitor appetite Additional Plan: tolerated increased wellbutrin, encourae continued groups, link with outpatient Risks, benefits, side effects, alternatives discussed w/pt: Yes Patient agreeable to treatment: Yes Consult Discharge Plan - Plan Referrals: [facility] [Outside] - 01/26/19 10:00 am (You have a follow up appointment on 01/26/19 at 10:00 and you also have an appointment with Sonam Torres on 01/25/19 at 1000. Please make sure to keep both appointment and if you would need to cancel, please kindly give 24 hours notice. ) Psychiatry Exam - Constitutional Vitals: Temp Pulse Resp BP Pulse Ox 97 F L 90 16 100/70 94 01/08/19 09:00 01/08/19 09:00 01/08/19 09:00 01/08/19 09:00 01/08/19 09:00 General appearance: age & developmentally appropriate, obese - Musculoskeletal Gait: slow Station: relaxed Strength & Tone: normal for patient - Psychiatric Patient Orientation: Yes Person, Yes Time, Yes Place, Yes Circumstance Level of alertness: Alert Behavior: calm Psychomotor activity: Slowed Eye Contact: Minimal Contact Mood Description: Depressed Patient description of mood: sad Affect description: congruent with mood Speech Volume: Normal Speech pattern: normal rate, normal rhythm, normal tone, fluent, spontaneous Language & Vocabulary: consistent with education Thought Process: Linear, Goal Oriented Thought Content: No Suicidal ideation, No Homicidal ideation, No Overt delusions Perceptual Disturbances: No Auditory hallucinations, No Visual hallucinations Attention Span Ability: Capable of Focused Attention Memory Description: Grossly Intact Patient Reliability: Reliable Historian Fund of knowledge: Yes abstraction ability, Yes aware of current events Intelligence Estimate: Average Judgment: Fair Insight: Partial
[2019-01-08] MEDS: hydrOXYzine pamoate 25 MG CAPSULE PO PRN (13:54)
[2019-01-08] MEDS: traZODone 50 MG TABLET PO SCH (21:25)
[2019-01-09] MEDS: hydroCHLOROthiazide 25 MG TABLET PO SCH (09:20)
[2019-01-09] MEDS: BuPROPion XL (24 HR) 150 MG TABLET PO SCH (09:20)
[2019-01-09] MEDS: Potassium Chloride Elixir 20 MEQ/15 ML UDC PO SCH ×2 (09:20→20:42)
[2019-01-09] MEDS: ARIPiprazole 5 MG TABLET PO SCH (09:20)
--- NOTE | 2019-01-09 11:11 | Psychiatry Progress Note ---
Date of Encounter: 01/09/19 Time of Encounter: 10:50 Subjective Interval history: Patient remains very dysphoric. She is very flat and does not interact. She continues to have suicidal ideations. She is hopeless. She is taking her medications. She had another visit with her last night and even staff observed that he is quite cold and self interested. This is one of her main stressors. Review of Systems Psychiatric: Reports: depression, anxiety, abnormal sleep pattern, suicidal ideation. Denies: homicidal ideation, auditory hallucinations, visual hallucinations Results - Vital Signs Vital Signs: Temp Pulse Resp BP Pulse Ox 96.5 F L 82 16 125/73 96 01/09/19 09:00 01/09/19 09:00 01/09/19 09:00 01/09/19 09:00 01/09/19 09:00 Assessment and Plan (1) Major depressive disorder, recurrent severe without psychotic features Current visit: No Status: Acute Plan: Continue hospitalization, Close observation, Suicide Precautions per unit protocol, Encourage participation in unit milieu, Group Therapy, Monitor sleep, Monitor appetite Additional Plan: Increase Zoloft 150 mg by mouth every morning. She was unable to tolerate higher doses of Abilify. She is doing well off Valium and with the increased Wellbutrin. Encourage group attendance. Risks, benefits, side effects, alternatives discussed w/pt: Yes Patient agreeable to treatment: Yes Consult Discharge Plan - Plan Referrals: [facility] [Outside] - 01/25/19 10:00 am (You have an appointment scheduled on Friday, January 25, 2019 at 10:00 AM with Sonam Torres PCC for Counseling. You have an appointment scheduled for Saturday, January 26, 2019 at 10:00 AM with Wicho Amin APR[facility] for medication management. Please contact the office at least 24 hours in advance if you are unable to keep your appointment(s). ) Jeffrey Torres MD [Partnered Physician] - 02/03/19 10:10 am (You have an appointment scheduled with this provider on Sunday, February 03, 2019 at 10:10 AM. Please keep all of your healthcare providers informed of any changes in your medications, treatments or medical conditions. Please contact the office at the number above at least 24 hours in advance if you are unable to keep this appointment. ) Psychiatry Exam - Constitutional Vitals: Temp Pulse Resp BP Pulse Ox 96.5 F L 82 16 125/73 96 01/09/19 09:00 01/09/19 09:00 01/09/19 09:00 01/09/19 09:00 01/09/19 09:00 General appearance: disheveled, obese - Musculoskeletal Gait: slow Station: stooped Strength & Tone: normal for patient - Psychiatric Patient Orientation: Yes Person, Yes Time, Yes Place, Yes Circumstance Level of alertness: Alert Behavior: tearful Psychomotor activity: Slowed Eye Contact: Minimal Contact Mood Description: Depressed Patient description of mood: Sad Affect description: tearful Speech Volume: Soft/Quiet Speech pattern: slowed Language & Vocabulary: consistent with education Thought Process: Goal Oriented Thought Content: Yes Suicidal ideation, No Homicidal ideation Perceptual Disturbances: No Auditory hallucinations, No Visual hallucinations Attention Span Ability: Capable of Focused Attention Memory Description: Grossly Intact Patient Reliability: Reliable Historian Fund of knowledge: Yes abstraction ability, Yes aware of current events Intelligence Estimate: Average Judgment: Poor Insight: None
[2019-01-09] MEDS ORDERED: Ibuprofen 400 MG TABLET PO PRN (11:31)
[2019-01-09] MEDS: traZODone 50 MG TABLET PO SCH (20:41)
[2019-01-10] MEDS: BuPROPion XL (24 HR) 150 MG TABLET PO SCH (08:57)
[2019-01-10] MEDS: hydroCHLOROthiazide 25 MG TABLET PO SCH (08:58)
[2019-01-10] MEDS: ARIPiprazole 5 MG TABLET PO SCH (08:58)
[2019-01-10] MEDS: Potassium Chloride Elixir 20 MEQ/15 ML UDC PO SCH ×2 (08:59→20:35)
--- NOTE | 2019-01-10 10:16 | Psychiatry Progress Note ---
Date of Encounter: 01/10/19 Time of Encounter: 08:40 Subjective Interval history: Patient was very upset that I did not let her leave last night to go to her children's homecoming game. When I really pushed her on the fact that if she had been successful and she quite nearly was successful in her overdose attempt she would not have been there for that game or for the rest of the futures, she has very limited insight into this fact. She minimizes the attempt even though she was in the medical unit for several days and has had this happen with prior attempts past. Her continues to be a main stressor for her. She tolerated the increase in Zoloft. She says she cannot have a higher Abilify dose and she is presently on. She does attempt to go to groups but is very flat and does not interact. She reports ongoing hopelessness but she denies suicidal thoughts however given the multitude of serious suicide attempts she has had I am very wary Review of Systems Psychiatric: Reports: depression, anxiety, abnormal sleep pattern, anhedonia, hopelessness. Denies: homicidal ideation, auditory hallucinations, visual hallucinations Results - Vital Signs Vital Signs: Temp Pulse Resp BP Pulse Ox 96.1 F L 83 14 120/84 95 01/10/19 09:00 01/10/19 09:00 01/10/19 09:00 01/10/19 09:00 01/10/19 09:00 Assessment and Plan (1) Major depressive disorder, recurrent severe without psychotic features Current visit: No Status: Acute Plan: Continue hospitalization, Close observation, Suicide Precautions per unit protocol, Encourage participation in unit milieu, Group Therapy, Monitor sleep, Monitor appetite Additional Plan: Zoloft was increased 150 mg a day yesterday. If she does not respond to this we will consider further increasing to 200. Encourage group attendance. Therapist will work on linkage. Risks, benefits, side effects, alternatives discussed w/pt: Yes Patient agreeable to treatment: Yes Consult Discharge Plan - Plan Referrals: [facility] [Outside] - 01/25/19 10:00 am (You have an appointment scheduled on Friday, January 25, 2019 at 10:00 AM with Sonam Torres PCC for Counseling. You have an appointment scheduled for Saturday, January 26, 2019 at 10:00 AM with Wicho Amin APRN, [facility]NP- for medication management. Please contact the office at least 24 hours in advance if you are unable to keep your appointment(s). ) Jeffrey Torres MD [Partnered Physician] - 02/03/19 10:10 am (You have an appointment scheduled with this provider on Friday, February 03, 2019 at 10:10 AM. Please keep all of your healthcare providers informed of any changes in your medications, treatments or medical conditions. Please contact the office at the number above at least 24 hours in advance if you are unable to keep this appointment. ) Psychiatry Exam - Constitutional Vitals: Temp Pulse Resp BP Pulse Ox 96.1 F L 83 14 120/84 95 01/10/19 09:00 01/10/19 09:00 01/10/19 09:00 01/10/19 09:00 01/10/19 09:00 General appearance: age & developmentally appropriate, obese - Musculoskeletal Gait: slow Station: stooped Strength & Tone: mild weakness - Psychiatric Patient Orientation: Yes Person, Yes Time, Yes Place, Yes Circumstance Level of alertness: Alert Behavior: withdrawn Psychomotor activity: Slowed Eye Contact: Minimal Contact Mood Description: Depressed Patient description of mood: Sad Affect description: blunted Speech Volume: Soft/Quiet Speech pattern: slowed Language & Vocabulary: consistent with education Thought Process: Logical Thought Content: No Suicidal ideation, No Homicidal ideation, No Overt delusions Perceptual Disturbances: No Auditory hallucinations, No Visual hallucinations Attention Span Ability: Capable of Focused Attention Memory Description: Grossly Intact Patient Reliability: Reliable Historian Fund of knowledge: Yes abstraction ability, Yes aware of current events Intelligence Estimate: Average Judgment: Limited Insight: Minimal
[2019-01-10] MEDS: traZODone 50 MG TABLET PO SCH (20:36)
[2019-01-10] MEDS: hydrOXYzine pamoate 25 MG CAPSULE PO PRN (20:37)
[2019-01-11] MEDS: BuPROPion XL (24 HR) 150 MG TABLET PO SCH (08:41)
[2019-01-11] MEDS: hydroCHLOROthiazide 25 MG TABLET PO SCH (08:43)
[2019-01-11] MEDS: ARIPiprazole 5 MG TABLET PO SCH (08:44)
[2019-01-11] MEDS: Potassium Chloride Elixir 20 MEQ/15 ML UDC PO SCH ×2 (08:44→20:22)
--- NOTE | 2019-01-11 10:24 | Psychiatry Progress Note ---
Date of Encounter: 01/11/19 Time of Encounter: 10:12 Subjective Interval history: Client continues to deny SI, intent, or plan. However, she continues to look very depressed. Easily tearful. Both Wellbutrin and Zoloft have been increased with some clinical improvement but client is clearly still dysphoric. This is concerning given the seriousness of her recent attempt. Client has a history of overdosing as a coping strategy but this attempt resulted in physical health consequences and a prolonged medical stay. 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 According to staff client's is part of the problem. Today client admits her is "grouchy," but that he "is a good man and provides for us." Client admits her relationship with her is a stressor but that she "loves him" and has no interest in leaving him. Willing to talk to an advocate so will attempt to set this up for today. Also agreeable to a [facility] referral so will attempt to get this set up as well. Client is linked with an outpatient psychiatrist and therapist but likely needs something more intensive. Wants discharged and since she is denying any ongoing SI, she will need discharged soon. However, would prefer she leave with more services in place than her normal outpatient routine. Review of Systems Constitutional: Denies: fever, chills, weakness, weight change Eyes: Denies: eye pain, vision change Ears, Nose, Throat: Denies: ear pain, throat pain, dental pain, hearing loss, congestion Cardiovascular: Denies: chest pain, palpitations, dyspnea on exertion Respiratory: Denies: cough, dyspnea, wheezes Gastrointestinal: Denies: abdominal pain, nausea, vomiting, diarrhea, constipation Musculoskeletal: Denies: joint swelling, joint pain Neurological: Denies: headache, weakness, numbness, memory loss Psychiatric: Reports: depression, anxiety, abnormal sleep pattern, anhedonia, hopelessness. Denies: homicidal ideation, auditory hallucinations, visual hallucinations Results - Vital Signs Vital Signs: Temp Pulse Resp BP Pulse Ox 96.5 F L 73 18 122/73 95 01/11/19 08:54 01/11/19 08:54 01/11/19 08:54 01/11/19 08:54 01/11/19 08:54 Assessment and Plan (1) Major depressive disorder, recurrent severe without psychotic features Current visit: No Status: Acute Plan: Continue hospitalization, Close observation, Suicide Precautions per unit protocol, Encourage participation in unit milieu, Group Therapy, Monitor sleep, Monitor appetite Risks, benefits, side effects, alternatives discussed w/pt: Yes Patient agreeable to treatment: Yes Consult Discharge Plan - Plan Referrals: [facility] [Outside] - 01/25/19 10:00 am (You have an appointment scheduled on Friday, January 25, 2019 at 10:00 AM with Sonam Torres, KIERA for Counseling. You have an appointment scheduled for Saturday, January 26, 2019 at 10:00 AM with Wicho Amin APRN, PMHNP- for medication management. Please contact the office at least 24 hours in advance if you are unable to keep your appointment(s). ) Jeffrey Torres MD [Partnered Physician] - 02/03/19 10:10 am (You have an appointment scheduled with this provider on Sunday, February 03, 2019 at 10:10 AM. Please keep all of your healthcare providers informed of any changes in your medications, treatments or medical conditions. Please contact the office at the number above at least 24 hours in advance if you are unable to keep this appointment. ) Psychiatry Exam - Constitutional Vitals: Temp Pulse Resp BP Pulse Ox 96.5 F L 73 18 122/73 95 01/11/19 08:54 01/11/19 08:54 01/11/19 08:54 01/11/19 08:54 01/11/19 08:54 General appearance: obese - Musculoskeletal Gait: normal Station: relaxed Strength & Tone: normal for patient - Psychiatric Patient Orientation: Yes Person, Yes Time, Yes Place Level of alertness: Alert Behavior: calm, cooperative Psychomotor activity: Normal Eye Contact: Maintains Eye Contact Mood Description: Depressed Affect description: congruent with mood Speech Volume: Normal Speech pattern: normal rate, normal rhythm, normal tone, fluent, spontaneous Language & Vocabulary: consistent with education Thought Process: Linear Thought Content: No Suicidal ideation, No Homicidal ideation, No Overt delusions Perceptual Disturbances: No Auditory hallucinations, No Visual hallucinations Attention Span Ability: Capable of Focused Attention Memory Description: Grossly Intact Patient Reliability: Reliable Historian Fund of knowledge: Yes abstraction ability, Yes aware of current events Intelligence Estimate: Average Judgment: Limited Insight: Partial
[2019-01-11] MEDS: traZODone 50 MG TABLET PO SCH (20:22)
[2019-01-12] MEDS: hydrOXYzine pamoate 25 MG CAPSULE PO PRN (07:28)
[2019-01-12] MEDS: ARIPiprazole 5 MG TABLET PO SCH (08:40)
[2019-01-12] MEDS: BuPROPion XL (24 HR) 150 MG TABLET PO SCH (08:40)
[2019-01-12] MEDS: hydroCHLOROthiazide 25 MG TABLET PO SCH (08:40)
[2019-01-12] MEDS: Potassium Chloride Elixir 20 MEQ/15 ML UDC PO SCH (08:41)
[2019-01-12 09:02] VITALS: BP 127/83
--- NOTE | 2019-01-12 12:00 | Discharge Summary ---
Date of Encounter: 01/12/19 Time of Encounter: 11:57 Diagnosis - Discharge Diagnosis (1) Major depressive disorder, recurrent severe without psychotic features Status: Acute Medications - Discharge Medications Prescriptions: traZODone [TraZODone] 100 mg PO HS #60 tablet Transmission Status: Pending to [place] [address] hydrOXYzine pamoate [Vistaril] 25 mg PO TID PRN #90 capsule PRN Reason: Anxiety Transmission Status: Pending to [place] [address] Oxybutynin Chloride [Ditropan XL] 10 mg PO DAILY 06/29/18 [History] Potassium Chloride Elixir [Potassium Chloride] 20 meq PO BID 06/29/18 [History] Omeprazole Magnesium [Prilosec Otc] 20 mg PO BID 08/19/18 [History] Albuterol Sulfate [Ventolin Hfa] 2 puff IH HS PRN 01/01/19 [History] Meloxicam 15 mg PO DAILY PRN 01/01/19 [History] SUMAtriptan Succinate [Imitrex] 100 mg PO AD PRN 01/01/19 [History] hydroCHLOROthiazide [Hydrochlorothiazide] 25 mg PO DAILY 01/01/19 [History] ARIPiprazole [Abilify] 5 mg PO QAM tablet 01/12/19 [Rx] BuPROPion XL (24 HR) [Wellbutrin Xl] 450 mg PO DAILY tab.er.24h 01/12/19 [Rx] Sertraline [Zoloft] 150 mg PO QAM tablet 01/12/19 [Rx] hydrOXYzine pamoate [Vistaril] 25 mg PO TID PRN #90 capsule 01/12/19 [Rx] traZODone [TraZODone] 100 mg PO HS #60 tablet 01/12/19 [Rx] Allergy/AdvReac Type Severity Reaction Status Date / Time promethazine [From Phenergan] Allergy Hives Verified 08/18/18 17:40 Provider Date of admission: 01/05/19 11:26 Primary care physician: PCP NONE Discharging clinician: Thi Roger Psychiatry Exam - Constitutional Vitals: Temp Pulse Resp BP Pulse Ox 97.6 F 73 18 127/83 95 01/12/19 09:00 01/12/19 09:00 01/12/19 09:00 01/12/19 09:00 01/12/19 09:00 General appearance: obese - Musculoskeletal Gait: normal Station: relaxed Strength & Tone: normal for patient - Psychiatric Patient Orientation: Yes Person, Yes Time, Yes Place Level of alertness: Alert Behavior: calm, cooperative Psychomotor activity: Normal Eye Contact: Maintains Eye Contact Mood Description: Depressed Affect description: congruent with mood Speech Volume: Normal Speech pattern: normal rate, normal rhythm, normal tone, fluent, spontaneous Language & Vocabulary: consistent with education Thought Process: Linear, Goal Oriented Thought Content: No Suicidal ideation, No Homicidal ideation, No Overt delusions Perceptual Disturbances: No Auditory hallucinations, No Visual hallucinations Attention Span Ability: Capable of Focused Attention Memory Description: Grossly Intact Patient Reliability: Reliable Historian Fund of knowledge: Yes abstraction ability, Yes aware of current events Intelligence Estimate: Average Judgment: Limited Insight: Partial Hospital Course Hospital course: Ms. Salvador is a 48 year old female who was admitted following an overdose attempt. Client has a long history of mental illness and overdosing on her prescription medications. This time she had medical sequelae following her overdose and she spent a few days on the medical floor before transferring to . 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 However, she remains high risk given her history and long standing depression. Staff had her stay in the hospital even though she was no longer endorsing SI given her pattern of overdosing when feeling lonely/rejected. Client does have martial discord and her is gone for lengthy periods since he is a batch trucker. Client spoke to an advocate yesterday about her relationship with her and reports this helped. Client states she was given information that could possibly assist her down the road. It was suggested to client that she might benefit from a Partial Hospitalization Program and she was given information about programs she would qualify for. It was also recommended she consider support groups and/or volunteer work to help get her out of the house and to help her build friendships. Client feels lonely and she would benefit from more structure to her day and more social interactions. Client states she feels safe to go home today. Denying SI, intent, or plan. Denying HI/AH/VH. Has been attending groups here in the hospital. Eating and sleeping well. Pleasant toward staff and peers. Both Zoloft and Wellbutrin were increased this admission with good clinical effect. Total time spent with client greater than 30 minutes. Patient was educated of her diagnosis and the risks, benefits, and side effects of this treatment and alternative treatment options and was monitored for responsiveness and side effects. Mood, anxiety, sleep, appetite, and interest improved, as did future orientation. Self-harm thoughts subsided, thinking cleared, psychosis resolved, and mood stabilized. Patient was able to attend both individual and group therapy sessions as well as meeting with the psychiatrist daily and urged to discuss any medication or treatment issues or other concerns. The patient was educated primarily by verbal means about their diagnosis and manifestations in their life. The option for treatment including group and individual therapy programming was offered to the patient in the use of medications with all their potential risks, benefits, and side effects were discussed with the patient at length. The patient was given the opportunity to ask questions and was noted to participate in the treatment in the planning process. The patient felt ready and eager to be discharged from the inpatient psychiatric unit to continue on with treatment as an outpatient. The patient agreed that she is safe for this disposition. The patient was considered to be able to participate in informed consent and decision making with respect to medical, legal, and financial issues of the time of discharge. At the time of discharge the patient adamantly denied any concerns for lethality including suicidal or homicidal thoughts ideations or plans and was future oriented toward ongoing mental health care, medical follow-up and sobriety. - Time Spent with Patient Total time spent providing and/or coordinating discharge services: Greater than 30 minutes Assessment and Plan - Patient/Caregiver Discharge Instructions Activity: resume usual activities as tolerated Diet: low fat, low cholesterol - Follow up Plan Follow up with: [facility] [Outside] - 01/25/19 10:00 am (You have an appointment scheduled on Friday, January 25, 2019 at 10:00 AM with Sonam Torres PCC for Counseling. You have an appointment scheduled for Saturday, January 26, 2019 at 10:00 AM with Wicho Amin APRN, [facility]- for medication management. Please contact the office at least 24 hours in advance if you are unable to keep your appointment(s). ) [facility] [Outside] ([facility] offers Partial Hospitalization Group services if you are interested in attending. These groups are held daily and cover topics such as coping skills, communication skills, and stress management. Please contact the [facility] at [phone] to speak with an patient service coordinator who can link you with these services.) Jeffrey Torres MD [Partnered Physician] - 02/03/19 10:10 am (You have an appointment scheduled with this provider on Sunday, February 03, 2019 at 10:10 AM. Please keep all of your healthcare providers informed of any changes in your medications, treatments or medical conditions. Please contact the office at the number above at least 24 hours in advance if you are unable to keep this appointment. ) Functional capacity at discharge: independent ambulation Overall status at discharge: Stable Disposition: Home, Self-Care Quality - Multiple Antipsychotics Patient discharged on 2 or more antipsychotic medications: No Procedures - Procedures Procedures: Medication Management, Crisis Stabilization, Supportive Therapy, Group Therapy
== END 2019-01-12 12:55 | disposition home or self-care (01) | DRG 885 ==
LOC: 1ANU 11:26 → SUATTDRO 11:26
PROVIDERS: ADMIT Psychiatry & Neurology Psychiatry; ATTEND Psychiatry & Neurology Psychiatry

== ENCOUNTER 2019-06-24 13:36 | Inpatient (IN) ==
[2019-06-24 14:51] LABS: Basophils % 0.4 %; Eosinophils % 0.9 %; Hematocrit 41.1 % (35.3-44.9); Hemoglobin 12.6 g/dL (11.5-15.4); Immature Granulocytes % 0.2 % (0-4); Lymphocytes # 0.9 K/mcL (0.6-4.6); Lymphocytes % 19.9 %; Mean Corpuscular HGB Conc 30.7 g/dL (31.6-35.5); Mean Corpuscular Hemoglobin 22.2 pg (28.0-33.3); Mean Corpuscular Volume 72.4 fL (83.0-100.0); Mean Platelet Volume 9.6 fL (9.4-12.4); Monocytes # 0.4 K/mcL (0.0-1.3); Monocytes % 7.5 %; Neutrophils # 3.3 K/mcL (1.6-8.9); Platelet Count 310 K/mcL (140-400); Red Blood Count 5.68 M/mcL (3.82-4.97); Red Cell Distribution Width 18.2 % (11.5-14.5); Segmented Neutrophils % 71.1 %; White Blood Count 4.7 K/mcL (4.3-11.1)
[2019-06-24 14:56] LABS: Bilirubin,Urine Negative (Negative); Blood,Urine Negative (Negative); Clarity,Urine Clear (Clear); Color,Urine Yellow (Yellow); Glucose,Urine (UA) Normal (Normal); Ketones,Urine Negative (Negative); Leukocyte Esterase,Urine Negative (Negative); Nitrite,Urine Negative (Negative); PH,Urine 5.5 pH Units (5.0-8.0); Protein,Urine Negative (Neg-Trace); Specific Gravity,Urine 1.017 (1.010-1.025); Urobilinogen,Urine Normal (Normal)
[2019-06-24 15:02] LABS: Amphetamine Screen,Urine Negative ng/mL (Cutoff=1000); Barbiturate Screen,Urine Negative ng/mL (Cutoff=200); Benzodiazepines Screen,Urine Negative ng/mL (Cutoff=200); Cannabinoid Screen,Urine Negative ng/mL (Cutoff = 50); Cocaine Screen,Urine Negative ng/mL (Cutoff= 300); Opiate Screen,Urine Negative ng/mL (Cutoff=300); Phencyclidine Screen,Urine Negative ng/mL (Cutoff=25)
[2019-06-24 15:04] LABS: Alanine Aminotransferase 17 Units/L (7-52); Albumin 4.2 g/dL (3.5-5.7); Albumin/Globulin Ratio 1.4 (1.1-2.2); Alkaline Phosphatase 61 Units/L (34-104); Aspartate Amino Transferase 14 Units/L (13-39); Bilirubin,Direct 0.1 mg/dL (0.0-0.2); Bilirubin,Indirect 0.4 mg/dL (0.0-1.0); Bilirubin,Total 0.5 mg/dL (0.3-1.0); Salicylate < 2.5 mg/dL (15.0-30.0); Total Protein 7.2 g/dL (6.4-8.9)
[2019-06-24 15:05] LABS: Acetaminophen < 10 mcg/mL (10-20); BUN/Creatinine Ratio 9 (6-26); Blood Urea Nitrogen 9 mg/dL (6-20); Calcium 9.3 mg/dL (8.6-10.3); Carbon Dioxide 28 mEq/L (23-29); Chloride 101 mEq/L (98-107); Glucose 110 mg/dL (70-105); Osmolality,Calculated 283 (280-300); Potassium 2.9 mEq/L (3.5-5.1); Sodium 137 mEq/L (136-145); eGFR For African Americans > 60 (> 60); eGFR For Non-African Americans > 60 (> 60)
[2019-06-24 15:25] LABS: Ethanol < 10 mg/dL (Less than 10)
[2019-06-24] MEDS ORDERED: haloperidoL 5 MG TABLET PO PRN (19:26)
[2019-06-24] MEDS ORDERED: Acetaminophen 325 MG TABLET PO PRN (19:26)
[2019-06-24] MEDS ORDERED: Mag Hydrox/Al Hydrox/Simeth 30 ML UDC PO PRN (19:26)
[2019-06-24] MEDS ORDERED: Haloperidol Lactate 5 MG/ML VIAL IM PRN (19:26)
[2019-06-24] MEDS ORDERED: traZODone 50 MG TABLET PO PRN (19:26)
[2019-06-24] MEDS ORDERED: *HR* LORazepam 2 MG/ML VIAL IM PRN (19:26)
[2019-06-24] MEDS ORDERED: *HR* LORazepam 1 MG TABLET PO PRN (19:26)
[2019-06-24] MEDS ORDERED: MOM Conc 10 ML UD.LIQ PO PRN (19:26)
[2019-06-24] MEDS: hydrOXYzine pamoate 25 MG CAPSULE PO PRN (22:57)
[2019-06-24 23:59] LABS: BUN/Creatinine Ratio 9 (6-26); Blood Urea Nitrogen 9 mg/dL (6-20); Calcium 9.2 mg/dL (8.6-10.3); Carbon Dioxide 27 mEq/L (23-29); Chloride 103 mEq/L (98-107); Glucose 111 mg/dL (70-105); Osmolality,Calculated 283 (280-300); Potassium 3.2 mEq/L (3.5-5.1); Sodium 137 mEq/L (136-145); eGFR For African Americans > 60 (> 60); eGFR For Non-African Americans > 60 (> 60)
[2019-06-25] LABS: Troponin I < 0.03 ng/mL (< 0.04)
[2019-06-25] MEDS ORDERED: Potassium Citrate 10 MEQ TABLET.ER PO ONE ×3 (00:32→09:00)
[2019-06-25 09:51] LABS: Basophils % 0.4 %; Eosinophils # 0.1 K/mcL (0.0-0.6); Eosinophils % 1.8 %; Hematocrit 42.5 % (35.3-44.9); Hemoglobin 13.1 g/dL (11.5-15.4); Immature Granulocytes % 0.4 % (0-4); Lymphocytes # 1.5 K/mcL (0.6-4.6); Lymphocytes % 25.8 %; Mean Corpuscular HGB Conc 30.8 g/dL (31.6-35.5); Mean Corpuscular Hemoglobin 22.5 pg (28.0-33.3); Mean Corpuscular Volume 73.1 fL (83.0-100.0); Mean Platelet Volume 9.7 fL (9.4-12.4); Monocytes # 0.5 K/mcL (0.0-1.3); Monocytes % 8.2 %; Neutrophils # 3.6 K/mcL (1.6-8.9); Platelet Count 339 K/mcL (140-400); Red Blood Count 5.81 M/mcL (3.82-4.97); Red Cell Distribution Width 18.6 % (11.5-14.5); Segmented Neutrophils % 63.4 %; White Blood Count 5.6 K/mcL (4.3-11.1)
[2019-06-25 10:11] LABS: BUN/Creatinine Ratio 9 (6-26); Blood Urea Nitrogen 10 mg/dL (6-20); Calcium 9.5 mg/dL (8.6-10.3); Carbon Dioxide 31 mEq/L (23-29); Chloride 101 mEq/L (98-107); Glucose 109 mg/dL (70-105); Osmolality,Calculated 288 (280-300); Potassium 3.1 mEq/L (3.5-5.1); Sodium 139 mEq/L (136-145); eGFR For African Americans > 60 (> 60); eGFR For Non-African Americans 52 (> 60)
[2019-06-25] MEDS: BuPROPion XL (24 HR) 150 MG TABLET PO SCH (11:09)
[2019-06-25 14:54] LABS: Chol/HDL Ratio 4.1 (0-4.9)
[2019-06-25 14:58] LABS: Thyroid Stimulating Hormone 1.59 mcIU/mL (0.340-5.600)
[2019-06-25] MEDS: hydrOXYzine pamoate 25 MG CAPSULE PO PRN (21:32)
[2019-06-25] MEDS: Lurasidone 20 MG TABLET PO SCH (21:32)
[2019-06-25] MEDS: Potassium Chloride Elixir 20 MEQ/15 ML UDC PO SCH (21:33)
[2019-06-26] MEDS ORDERED: Lurasidone 20 MG TABLET PO ONE (09:00)
[2019-06-26] MEDS ORDERED: BuPROPion XL (24 HR) 150 MG TABLET PO ONE (09:00)
[2019-06-26] MEDS ORDERED: Potassium Chloride Elixir 20 MEQ/15 ML UDC ONE ×2 (09:00→15:36)
[2019-06-26] MEDS ORDERED: hydroCHLOROthiazide 25 MG TABLET ONE (09:00)
[2019-06-26] MEDS ORDERED: Ondansetron ODT 4 MG TAB.RAPDIS SL PRN (14:46)
[2019-06-26] MEDS: hydrOXYzine pamoate 25 MG CAPSULE PO PRN (18:20)
[2019-06-26] MEDS: Potassium Chloride Elixir 20 MEQ/15 ML UDC PO SCH (21:07)
[2019-06-26] MEDS: hydroCHLOROthiazide 25 MG TABLET PO SCH (21:07)
[2019-06-26] MEDS: BuPROPion XL (24 HR) 150 MG TABLET PO SCH (21:10)
[2019-06-26] MEDS: Lurasidone 20 MG TABLET PO SCH (21:17)
[2019-06-26] MEDS: traZODone 50 MG TABLET PO SCH (21:29)
[2019-06-27] MEDS: hydroCHLOROthiazide 25 MG TABLET PO SCH (10:52)
[2019-06-27] MEDS: BuPROPion XL (24 HR) 150 MG TABLET PO SCH (10:53)
[2019-06-27] MEDS: Potassium Chloride Elixir 20 MEQ/15 ML UDC PO SCH ×2 (10:53→16:27)
[2019-06-27] MEDS ORDERED: Lurasidone 20 MG TABLET PO SCH (17:00)
[2019-06-27] MEDS: hydrOXYzine pamoate 25 MG CAPSULE PO PRN (20:53)
[2019-06-27] MEDS: traZODone 50 MG TABLET PO SCH (20:53)
[2019-06-28] MEDS: hydroCHLOROthiazide 25 MG TABLET PO SCH (09:06)
[2019-06-28] MEDS: BuPROPion XL (24 HR) 150 MG TABLET PO SCH (09:06)
[2019-06-28] MEDS: Potassium Chloride Elixir 20 MEQ/15 ML UDC PO SCH ×2 (09:07→16:42)
[2019-06-28] MEDS ORDERED: Lurasidone 20 MG TABLET PO SCH ×2 (17:00)
[2019-06-28] MEDS: hydrOXYzine pamoate 25 MG CAPSULE PO PRN (20:20)
[2019-06-28] MEDS: traZODone 50 MG TABLET PO SCH (20:20)
[2019-06-29 08:25] LABS: Estimated Average Glucose 123 mg/dl
[2019-06-29] MEDS: BuPROPion XL (24 HR) 150 MG TABLET PO SCH (08:54)
[2019-06-29] MEDS: hydroCHLOROthiazide 25 MG TABLET PO SCH (08:54)
[2019-06-29] MEDS: Potassium Chloride Elixir 20 MEQ/15 ML UDC PO SCH (08:55)
[2019-06-29 10:28] VITALS: BP 109/61
== END 2019-06-29 13:15 | disposition home or self-care (01) | DRG 918 ==
LOC: EMEROOARM 13:36 → 1ANU 18:31 → SUATTDRO 18:31 → 1ANU 19:12
PROVIDERS: ADMIT Psychiatry & Neurology Psychiatry; ATTEND Psychiatry & Neurology Forensic Psychiatry

== ENCOUNTER 2019-11-16 13:34 | Inpatient (IN) ==
[2019-11-16 14:10] LABS: Bilirubin,Urine Negative (Negative); Blood,Urine Negative (Negative); Clarity,Urine Turbid (Clear); Color,Urine Light-Yellow (Yellow); Glucose,Urine (UA) Normal (Normal); Ketones,Urine Negative (Negative); Leukocyte Esterase,Urine Large (Negative); Mucus,Urine Few per lpf (None-Few); Nitrite,Urine Negative (Negative); Protein,Urine Negative (Neg-Trace); Specific Gravity,Urine 1.012 (1.010-1.025); Squamous Epithelial Cell,Urine Moderate per hpf (None-Few); Urobilinogen,Urine Normal (Normal); WBC,Urine 0-3 per hpf (0-3)
[2019-11-16 14:13] LABS: Amphetamine Screen,Urine Negative ng/mL (Cutoff=1000); Barbiturate Screen,Urine Negative ng/mL (Cutoff=200); Benzodiazepines Screen,Urine Negative ng/mL (Cutoff=200); Cannabinoid Screen,Urine Negative ng/mL (Cutoff = 50); Cocaine Screen,Urine Negative ng/mL (Cutoff= 300); Opiate Screen,Urine Negative ng/mL (Cutoff=300); Phencyclidine Screen,Urine Negative ng/mL (Cutoff=25)
[2019-11-16 14:37] LABS: Basophils % 0.4 %; Red Cell Distribution Width 16.1 % (11.5-14.5)
[2019-11-16 14:38] LABS: Eosinophils # 0.1 K/mcL (0.0-0.6); Eosinophils % 1.4 %; Hematocrit 39.3 % (35.3-44.9); Hemoglobin 12.1 g/dL (11.5-15.4); Immature Granulocytes % 0.4 % (0-4); Immature Platelets 3.3 % (1.1-6.1); Lymphocytes # 0.9 K/mcL (0.6-4.6); Lymphocytes % 18.8 %; Mean Corpuscular HGB Conc 30.8 g/dL (31.6-35.5); Mean Corpuscular Hemoglobin 23.5 pg (28.0-33.3); Mean Corpuscular Volume 76.5 fL (83.0-100.0); Mean Platelet Volume 9.8 fL (9.4-12.4); Monocytes # 0.3 K/mcL (0.0-1.3); Monocytes % 6.1 %; Platelet Count 192 K/mcL (140-400); Red Blood Count 5.14 M/mcL (3.82-4.97); Segmented Neutrophils % 72.9 %
[2019-11-16 14:42] LABS: Neutrophils # 3.7 K/mcL (1.6-8.9)
[2019-11-16 15:16] LABS: Acetaminophen < 10 mcg/mL (10-20); BUN/Creatinine Ratio 15 (6-26); Blood Urea Nitrogen 14 mg/dL (6-20); Calcium 9.3 mg/dL (8.6-10.3); Carbon Dioxide 27 mEq/L (23-29); Chloride 99 mEq/L (98-107); Chol/HDL Ratio 4.1 (0-4.9); Cholesterol 183 mg/dL (< 200); Ethanol < 10 mg/dL (Less than 10); Glucose 123 mg/dL (70-105); HDL Cholesterol 45 mg/dL (40-59); LDL Cholesterol,Calculated 111 mg/dL (< 100); Osmolality,Calculated 284 (280-300); Potassium 3.2 mEq/L (3.5-5.1); Salicylate < 2.5 mg/dL (15.0-30.0); Sodium 136 mEq/L (136-145); Triglycerides 133 mg/dL (< 150); eGFR For African Americans > 60 (> 60); eGFR For Non-African Americans > 60 (> 60)
[2019-11-16 15:46] LABS: Estimated Average Glucose 123 mg/dl
[2019-11-16] MEDS ORDERED: SUMAtriptan succinate 50 MG TABLET PO PRN (17:01)
[2019-11-16] MEDS ORDERED: Ondansetron ODT 4 MG TAB.RAPDIS SL PRN (17:01)
[2019-11-16] MEDS ORDERED: Haloperidol Lactate 5 MG/ML VIAL IM PRN (17:02)
[2019-11-16] MEDS ORDERED: *HR* LORazepam 1 MG TABLET PO PRN (17:02)
[2019-11-16] MEDS ORDERED: *HR* LORazepam 2 MG/ML VIAL IM PRN (17:02)
[2019-11-16] MEDS ORDERED: haloperidoL 5 MG TABLET PO PRN (17:02)
[2019-11-16] MEDS ORDERED: Mag Hydrox/Al Hydrox/Simeth 30 ML UDC PO PRN (17:02)
[2019-11-16] MEDS ORDERED: MOM Conc 10 ML UD.LIQ PO PRN (17:02)
[2019-11-16] MEDS: Acetaminophen 325 MG TABLET PO PRN (19:25)
[2019-11-16] MEDS: Potassium Chloride Elixir 20 MEQ/15 ML UDC PO SCH (21:32)
[2019-11-16] MEDS: hydrOXYzine pamoate 25 MG CAPSULE PO PRN (21:34)
[2019-11-16] MEDS: traZODone 50 MG TABLET PO PRN (21:34)
[2019-11-17] MEDS: Acetaminophen 325 MG TABLET PO PRN ×2 (05:44→15:33)
[2019-11-17] MEDS ORDERED: NON-FORMULARY MEDICATION 1 EACH EACH (Bupropion Hcl [Wellbutrin Xl] 300 MG) PO SCH (09:00)
[2019-11-17] MEDS: BuPROPion XL (24 HR) 150 MG TABLET PO SCH (09:21)
[2019-11-17] MEDS: hydroCHLOROthiazide 25 MG TABLET PO SCH (09:21)
[2019-11-17] MEDS: Potassium Chloride Elixir 20 MEQ/15 ML UDC PO SCH ×3 (09:22→21:35)
[2019-11-17] MEDS: VILAZODONE HCL PO SCH (09:24)
[2019-11-17] MEDS: Lurasidone 20 MG TABLET PO SCH (17:13)
[2019-11-17] MEDS: traZODone 50 MG TABLET PO PRN (21:36)
[2019-11-17] MEDS: hydrOXYzine pamoate 25 MG CAPSULE PO PRN (21:36)
[2019-11-18] MEDS: VILAZODONE HCL PO SCH (09:13)
[2019-11-18] MEDS: Potassium Chloride Elixir 20 MEQ/15 ML UDC PO SCH ×3 (09:14→21:31)
[2019-11-18] MEDS: BuPROPion XL (24 HR) 150 MG TABLET PO SCH (09:15)
[2019-11-18] MEDS: hydroCHLOROthiazide 25 MG TABLET PO SCH (09:15)
[2019-11-18] MEDS: Lurasidone 20 MG TABLET PO SCH (15:40)
[2019-11-18] MEDS: hydrOXYzine pamoate 25 MG CAPSULE PO PRN (21:30)
[2019-11-18] MEDS: traZODone 50 MG TABLET PO PRN (21:31)
[2019-11-19] MEDS: Acetaminophen 325 MG TABLET PO PRN (08:02)
[2019-11-19] MEDS: hydroCHLOROthiazide 25 MG TABLET PO SCH (08:03)
[2019-11-19] MEDS: VILAZODONE HCL PO SCH (08:03)
[2019-11-19] MEDS: BuPROPion XL (24 HR) 150 MG TABLET PO SCH (08:03)
[2019-11-19] MEDS: Potassium Chloride Elixir 20 MEQ/15 ML UDC PO SCH (08:04)
[2019-11-19 08:32] VITALS: BP 119/74
== END 2019-11-19 10:15 | disposition home or self-care (01) | DRG 885 ==
LOC: EMEROOARM 13:34 → 1ANU 16:58
PROVIDERS: ADMIT Psychiatry & Neurology Psychiatry; ATTEND Psychiatry & Neurology Psychiatry